=== PATIENT | female | born 1955 | race Caucasian/White ===

== ENCOUNTER → 2017-08-29 15:05 | Outpatient (CLI) | payer BC, SELFPAY ==
--- NOTE | 2017-08-29 15:05 | DT_ITS ---
This patient was seen during an EMR downtime August 28, 2017 - September 04, 2017. This patient may have a combination of paper and electronic documentation or all paper documentation. All documentation is viewable within the e-chart portion of [facility] for each patient visit.
[2017-09-04 16:53] LABS: ALB/GLOB Ratio 1.1 RATIO (0.9-2.4); BUN 16 mg/dL (7-18); Creatinine, Serum 0.94 mg/dL (0.55-1.02); EST Glomerular Filtration Rate 64 mL/min (>60); Est Glom Filt Rate - Afr Amer 78 mL/min (>60); Globulin 3.8 g/dL (2.2-4.2); Glucose 85 mg/dL (74-106); Protein, Total 7.8 g/dL (6.4-8.2)
[2017-09-04 16:54] LABS: AST(SGOT) 22 U/L (15-37); Alanine Aminotransfer ALT/SGPT 22 U/L (13-56); Alkaline Phosphatase 91 U/L (45-117); Anion Gap 8 (5-15); Calcium,Total 9.4 mg/dL (8.5-10.1); Chloride 104 mmol/L (98-107); Potassium 4.3 mmol/L (3.5-5.1); Sodium Level 141 mmol/L (136-145)
[2017-09-04 17:45] LABS: Hematocrit 41.2 % (37-47); Hemoglobin 13.5 g/dl (12.0-15.0); Mean Corp Hgb Conc 32.8 g/gl (32-36); Mean Corpuscular Hgb 28.5 pg (27.0-32.0); Mean Corpuscular Volume 87.1 fL (81-99); Mean Platelet Vol. 8.9 fl (6.2-12.0); POSITIVE COUNT NO; POSITIVE DIFFERENTIAL NO; POSITIVE MORPHOLOGY NO; Platelet Count 165 K/mm3 (150-450); RBC Distribution Width CV 13.9 % (11.6-14.6); RBC Distribution Width SD 44.3 fl (35.1-43.9); Red Blood Count 4.73 M/mm3 (4.2-5.4); White Blood Count 7.5 K/mm3 (4.4-11.0)
[2017-09-04 17:46] LABS: Absolute Lymphocyte Count 1.91 X10^3/ul (0.83-4.51); Absolute Neutrophil Count 5.1 X10^3/uL (2.0-7.7); Basophil# 0.03 X10^3/uL; Basophil% 0.4 % (0-1); Eosinophil# 0.09 X10^3/uL; Eosinophils% 1.2 % (0-5); Lymphocyte # 1.91 X10^3/ul (4.0); Lymphocyte % 25.4 % (19-41); Monocyte# 0.42 X10^3/uL; Monocyte% 5.6 % (0-10); Neutrophil # 5.05 X10^3/uL (2.7-7.7); Neutrophil % 67.3 % (47-70)
== END ==
PROVIDERS: Family Provider Family Medicine; PCP Family Medicine; Visit Provider Internal Medicine Rheumatology
DX: L40.59 Other psoriatic arthropathy (principal); L40.9 Psoriasis, unspecified; M21.40 Flat foot [pes planus] (acquired), unspecified foot; K76.0 Fatty (change of) liver, not elsewhere classified; L71.9 Rosacea, unspecified; Z85.3 Personal history of malignant neoplasm of breast
CPT/HCPCS: 36415; 80053; 85025

== ENCOUNTER → 2018-02-22 16:15 | Outpatient (CLI) | payer BC, SELFPAY ==
[2017-04-19 16:53] VITALS: BMI 37.9
[2018-02-22 17:34] LABS: Absolute Neutrophil Count 2.8 X10^3/uL (2.0-7.7); Basophil# 0.03 X10^3/uL; Basophil% 0.6 % (0-1); Eosinophil# 0.16 X10^3/uL; Eosinophils% 3.1 % (0-5); Hemoglobin 13.3 g/dl (12.0-15.0); Lymphocyte % 33.2 % (19-41); Mean Corp Hgb Conc 32.4 g/gl (32-36); Mean Corpuscular Hgb 28.4 pg (27.0-32.0); Mean Corpuscular Volume 87.4 fL (81-99); Mean Platelet Vol. 9.3 fl (6.2-12.0); Monocyte# 0.38 X10^3/uL; Monocyte% 7.4 % (0-10); Neutrophil # 2.84 X10^3/uL (2.7-7.7); Neutrophil % 55.5 % (47-70); Platelet Count 185 K/mm3 (150-450); RBC Distribution Width CV 13.7 % (11.6-14.6); RBC Distribution Width SD 42.9 fl (35.1-43.9); Red Blood Count 4.69 M/mm3 (4.2-5.4); White Blood Count 5.1 K/mm3 (4.4-11.0)
[2018-02-22 17:39] LABS: POSITIVE COUNT NO; POSITIVE DIFFERENTIAL NO; POSITIVE MORPHOLOGY NO
[2018-02-22 17:50] LABS: ALB/GLOB Ratio 1.1 RATIO (0.9-2.4); AST(SGOT) 29 U/L (15-37); Alanine Aminotransfer ALT/SGPT 31 U/L (13-56); Albumin, Serum 4.1 g/dL (3.2-5.0); Alkaline Phosphatase 85 U/L (45-117); Anion Gap 5 (5-15); BUN 13 mg/dL (7-18); BUN/Creat Ratio 15.2 RATIO (10-20); Calcium,Total 9.3 mg/dL (8.5-10.1); Chloride 103 mmol/L (98-107); Creatinine, Serum 0.85 mg/dL (0.55-1.02); EST Glomerular Filtration Rate 71 mL/min (>60); Est Glom Filt Rate - Afr Amer 86 mL/min (>60); Globulin 3.6 g/dL (2.2-4.2); Glucose 82 mg/dL (74-106); Protein, Total 7.7 g/dL (6.4-8.2); Sodium Level 138 mmol/L (136-145)
--- OUTSIDE RECORDS SUMMARY | 2018-04-19 22:36 | XMS RPT_ITS ---
:1955 Author Organization [facility] Address [address] [place] [address] Phone Care Team Providers Name Role Phone Jono MURRIETA, Jhonatan Smith Unavailable Reason for Visit Reason For Visit Description Start Date Follow-up by complaint Preliminary reason for visit data, not yet signed by the author as of right knee pain Preliminary reason for visit data, not yet signed by the author as of Chief Complaint Chief Complaint Description Start Date right knee pain Preliminary chief complaint data, not yet signed by the author as of Instructions Instruction Description Start Date Patient advised to follow-up with Primary Care Physician for BMI management. Plan of Care Type Date Detail Appointment 03:15 PM Jhonatan De La Cruz MD, [address] [place] [address], [place], [address], Medications Medication Instructions Start Stop Generic Name NDC Provider Date Date IBUPROFEN 200 two tablets IBUPROFEN 82174416107 Jhonatan M MG TABS every six hours 5 Jono MURRIETA as needed for pain. 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 2nd plantar (SNOMED CT) 04/02 04/02 Antonia MURRIETA MP. plate of right foot Injury of 443789814 Active Dick Todd Injury of foot chronic. 2nd plantar (SNOMED CT) 04/02 04/02 Antonia MURRIETA MP. plate of left foot Long toe 192363220 Active Dick Todd Form of toes - long 2nd (SNOMED CT) 04/02 04/02 Antonia MURRIETA finding metatarsal, bilaterally Tenosynovit 972268295 Active Dick Todd Tenosynovitis 2nd MP joint is of toe (SNOMED CT) 04/02 04/02 Antonia MURRIETA of foot bilaterally Acquired 4186211 Active Dick Todd Acquired hallux hallux (SNOMED CT) 04/02 04/02 Antonia MURRIETA rigidus rigidus of right foot Gastrocnemi 946162817 Active Dick Todd Angulation us equinus (SNOMED CT) 04/02 04/02 Antonia MURRIETA deformity of of left lower limb lower extremity Gastrocnemi 067343705 Active Dick Todd Angulation us equinus (SNOMED CT) 04/02 04/02 Antonia MURRIETA deformity of of right lower limb lower extremity Hallux 29472436 Active Dick Todd Acquired hallux valgus (SNOMED CT) 04/02 04/02 Antonia MURRIETA valgus (acquired), right foot Hallux 118148403 Active Dick Todd Hallux valgus valgus (SNOMED CT) 04/02 04/02 Antonia MURRIETA AND bunion (acquired), left foot Osteoarthri 719277999 Active Rekha Hung Patellofemoral tis of (SNOMED CT) 09/24 09/24 [place] osteoarthritis right 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 Vital Signs Date Name Value Unit Description BMI (Body Mass 37.26 kg/m2 Body Mass Index Index) [Ratio] Preliminary vital sign data, not yet signed by the author as of BP Diastolic 73 mm[Hg] blood pressure, diastolic Preliminary vital sign data, not yet signed by the author as of BP Systolic 110 mm[Hg] blood pressure, systolic Preliminary vital sign data, not yet signed by the author as of Heart Rate 67 /min pulse rate E&M Preliminary vital sign data, not yet signed by the author as of Height 66 [in_us] height E&M Preliminary vital sign data, not yet signed by the author as of Height 168 cm height in centimeters E&M Preliminary vital sign data, not yet signed by the author as of Weight Measured 230 [lb_av] weight E&M Preliminary vital sign data, not yet signed by the author as of Weight Measured 105 kg weight in kilograms E&M Preliminary vital sign data, not yet signed by the author as of Results Date Name Value Unit Range Flag Description Office Visit: Follow-up by complaint, Rm: 3 MEDS REVIEW Done Documentation of current medications (procedure) Preliminary observation data, not yet signed by the author as of Preliminary observation data, not yet signed by the author as of Clinical Summary: [facility] account number Procedures Code Procedure Name Date Entry Date CPT-37539 XR KNEE [id number] G8730 Pain assessment documented as positive - follow-up documented G8427 Current medications documented 1036F Tobacco screening was negative - non user G8417 BMI documented as above normal parameters - follow-up documented G8783 Blood pressure within normal parameters - no follow-up required [facility]-[id number] Patient Encounter Medications Administered No information available. Immunizations No information available. Advance Directives There may be information available, but it has not been provided by the sender. Assessments There may be information available, but it has not been provided by the sender. Review of Systems There may be information available, but it has not been provided by the sender. Family History There may be information available, but it has not been provided by the sender. History of Past Illness There may be information available, but it has not been provided by the sender. History of Present Illness There may be information available, but it has not been provided by the sender.
--- OUTSIDE RECORDS SUMMARY | 2018-04-19 22:36 | XMS RPT_ITS ---
:1955 Author Organization [employer] Address [address] [place] [address] Phone Care Team Providers Name Role Phone Jhonatan De La Cruz MD Unavailable Reason for Visit Reason For Visit Description Start Date Postop - subsequent visit Preliminary reason for visit data, not yet signed by the author as of right knee post Right Total Knee Arthroplasty on 11/21/2016 Preliminary reason for visit data, not yet signed by the author as of Chief Complaint Chief Complaint Description Start Date right knee post Right Total Knee Arthroplasty on 11/21/2016 Preliminary chief complaint data, not yet signed by the author as of Instructions Instruction Description Start Date Patient advised to follow-up with Primary Care Physician for BMI management. Plan of Care Type Date Detail Appointment 09:45 AM Jhonatan De La Cruz MD, [address], [place], [address], Appointment 09:45 AM Jhonatan De La Cruz MD, [address], [place], [address], Medications Medication Instructions Start Stop Generic Name NDC Provider Date Date CIPRO 500 MG 1 tablet twice / CIPROFLOXACIN 57374922738 Jhonatan Smith TABS daily 22 HCL Jono MURRIETA IBUPROFEN 200 two tablets / IBUPROFEN 13541158717 Jhonatan Smith MG TABS every six hours 25 Jono MURRIETA as needed for pain. ATENOLOL 25 MG one tablet once / ATENOLOL 24104500447 Jhonatan Smith TABS daily 25 Jono MURRIETA ASPIRIN EC 325 Once daily / ASPIRIN 52832677641 Jhonatan Smith MG TBEC 26 Jono MURRIETA VITAMIN C 1000 once daily / ASCORBIC ACID 28441759345 Jhonatan Smith MG TABS 08 Jono MURRIETA OTEZLA 30 MG once daily / APREMILAST 08653627885 Jhonatan Smith ROSITA 08 Jono MURRIETA Conditions or Problems Problem Problem Onset Status Entry Provider Comment Standard Annotate Name Code Date Date Description Unilateral M17.12 Active Jhonatan Sarah Unilateral primary (ICD-10-CM) 08/18 08/18 Jono primary osteoarthri osteoarthritis, tis left left knee knee Status post 73309720838 Active Rekha A History of total right 05 (SNOMED [place] total knee knee CT) 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 2nd plantar (SNOMED CT) 04/02 04/02 Antonia MURRIETA MP. plate of right foot Injury of 379379008 Active Dick Todd Injury of foot chronic. 2nd plantar (SNOMED CT) 04/02 04/02 Antonia MURRIETA MP. plate of left foot Long toe 781400477 Active Dick Todd Form of toes - long 2nd (SNOMED CT) 04/02 04/02 Anotnia MURRIETA finding metatarsal, bilaterally Tenosynovit 919686912 Active Dick Todd Tenosynovitis 2nd MP joint is of toe (SNOMED CT) 04/02 04/02 Antonia MURRIETA of foot bilaterally Acquired 4885890 Active Dick Todd Acquired hallux hallux (SNOMED CT) 04/02 04/02 Antonia MURRIETA rigidus rigidus of right foot Gastrocnemi 029801840 Active Dick Todd Angulation us equinus (SNOMED CT) 04/02 04/02 Antonia MURRIETA deformity of of left lower limb lower extremity Gastrocnemi 842211050 Active Dikc Todd Angulation us equinus (SNOMED CT) 04/02 04/02 Antonia MURRIETA deformity of of right lower limb lower extremity Hallux 12781749 Active Dick Todd Acquired hallux valgus (SNOMED CT) 04/02 04/02 Antonia MURRIETA valgus (acquired), right foot Hallux 413246232 Active Dick Todd Hallux valgus valgus (SNOMED CT) 04/02 04/02 Antonia MURRIETA AND bunion (acquired), left foot Osteoarthri 214025248 Active Rekha A Patellofemoral tis of (SNOMED CT) 09/24 09/24 [place] osteoarthritis right 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 Acute 152956251 Active Jhonatan Smith Acute meniscal medial (SNOMED [...] by the author as of BP Diastolic 74 mm[Hg] blood pressure, diastolic Preliminary vital sign data, not yet signed by the author as of BP Systolic 116 mm[Hg] blood pressure, systolic Preliminary vital sign data, not yet signed by the author as of Heart Rate 73 /min pulse rate E&M Preliminary vital sign [...] Value Unit Range Flag Description Office Visit: Postop - subsequent visit, Rm: 1 MEDS REVIEW Done Documentation of current medications (procedure) Preliminary observation data, not yet signed by the author as of Preliminary observation data, not yet signed by the author as of XRAY HX of the right knee xray history on 12/14/2017 at [facility] Preliminary observation data, not yet signed by the author as of Clinical Summary: [facility] account number Procedures Code Procedure Name Date Entry Date G8730 Pain assessment documented as positive - follow-up documented G8427 Current medications documented 1036F Tobacco screening was negative - non user G8417 BMI documented as above normal parameters - follow-up documented G8783 Blood pressure within normal parameters - no follow-up required [facility]-[id number] Patient Encounter Medications Administered No information available. [...]
--- OUTSIDE RECORDS SUMMARY | 2018-04-19 22:36 | XMS RPT_ITS ---
:1955 Author Organization [facility] Care Team Providers Name Role Phone LEONA SMITH MICHEAL A Referring Unavailable TIEN JOSÉ (DRIVER UTILITY WORKER) Referring Unavailable TIEN JOSÉ (DRIVER UTILITY WORKER) Attending Unavailable TIEN JOSÉ (DRIVER UTILITY WORKER) Referring Unavailable CEBUL III, MICHEAL A Attending Unavailable CEBUL III, MICHEAL A Referring Unavailable CEBUL III, MICHEAL A Attending Unavailable CEBUL III, MICHEAL A Referring Unavailable CEBUL III, MICHEAL A Referring Unavailable TIEN JOSÉ (DRIVER UTILITY WORKER) Attending Unavailable TIEN JOSÉ (DRIVER UTILITY WORKER) Referring Unavailable TIEN JOSÉ (DRIVER UTILITY WORKER) Referring Unavailable Alex Rodriguze Attending Unavailable Cebul III, Micheal Referring Unavailable Cebul III, Micheal Primary Care Unavailable Iman Bose Attending Unavailable Iman Bose Referring Unavailable Cebul III, Micheal Primary Care Unavailable Iman Bose Attending Unavailable Iman Bose Referring Unavailable Cebul III, Micheal Primary Care Unavailable PROBLEMS PROBLEMS DATE TYPE CONDITION / CODE ATTENDING STATUS SOURCE 01/12/2018 Active Fever, NA Active [facility] unspecified / [facility] [place] R50.9(ICD-10) Repository 09/20/2017 Unknown L40.59 - Other [place]ieran, Iman Active [facility] arthropathy [facility] L40.59(ICD-10) Repository 08/29/2017 Active Unknown / JOSÉ, Active [facility] UNK(Unknown) TIEN (DRIVER UTILITY WORKER) [facility] [place] Repository 09/07/2016 Active Intraductal NA Active [facility] carcinoma in situ [facility] [place] of right breast / Repository D05.11(ICD-10) 08/28/2017 Active Encounter for NA Active [facility] screening [facility] mammogram for Repository malignant neoplasm of breast / Z12.31(ICD-10) 04/19/2017 Unknown R30.0 - Dysuria / Alex Rodriguez Active [facility] R30.0(ICD-10) [facility] Repository 04/19/2017 Unknown N39.0 - Urinary Alex Rodriguez Active [facility] tract infection, Community site not Hospital specified / Repository N39.0(ICD-10) PROCEDURES PROCEDURES No Procedure Records FoundRESULTS RESULTS URINALYSIS WITH Collected: 02/28/2018 Status: F Source: [facility] 11:48 AM [facility] REPOSITORY TYPE CODE TESTS RESULT OUT OF REFERENCE UNITS RANGE LAB UCOL Yellow Color Yellow LAB [facility] Clear Clarity Clear LAB UGLUC Negative mg/dL Glucose, Urine Negative LAB UBIL Negative Bilirubin, Urine Negative LAB UKET Negative Ketones, Urine Negative LAB USPG 1.005-1.030 Specific [place], Ur 1.018 LAB UHGB Negative Hemoglobin/Blood, Negative Ur LAB UPH 4.5-8.0 pH 6.0 LAB UPROT Negative mg/dL Protein, Urine Negative LAB UUROB Normal Urobilinogen Normal LAB UNITR Negative Nitrites Negative LAB ULKEST Negative Leukest Negative LAB UCOM Comments SEE COMMENT Result Comment: N/A LAB UMCOM Urine SEE Abrahan Comment COMMENT Result Comment: Interpret results with caution. Urine preservative tube not filled to the required volume. The BD Vacutainer Urinalysis preservative Plus tube must be filled with at least 7 mL and not more than 9 mL of urine in order to maintain the proper additive to urine ratio. LAB UWBC 0-5 /HPF WBC 0-5 LAB URBC 0-3 /HPF RBC 0-3 LAB UEPI /HPF Epithelial SEE Cells COMMENT Result Comment: Few Squamous Epithelial Cells Performed By: #### UAWMIC #### [facility] [address] [place], [place] [address] Observed: 02/28/2018 Status: F Source: [facility]ULT[facility] 11:48 AM [facility] REPOSITORY Sp. Request/Comment: - Specimen received in preservative Culture Result - 10,000 - <50,000 CFU/ml Normal urogenital emely Performed By: #### URCUL #### [facility] [address] [place], [place] [address] PROGRESS Observed: 02/28/2018 Status: COMPLETED Source: [facility] 11:05 AM [facility] REPOSITORY HNO ID: [id number] Author: Tien José Service: (none) Author Type: Nurse Practitioner Type: Progress Notes Filed: 02/28/2018 11:29 AM Note Text: Chief Complaint Patient presents with: Established Patient HPI: Pily Emery is a 62 year old female who presents here today for follow up DCIS. H/o abnormality on screening mammogram 05/13/2013. ?? Underwent biopsy 07/11/2013. ?? Pathology: DCIS (5 mm); cribriform, solid and comedo pattern; high nuclear grade with necrosis (expansive comedo necrosis). ER 95% with HER2 2-3+. Then underwent lumpectomy 07/30/2013: Focal lobular carcinoma in situ. Multifocal atypical lobular hyperplasia with atypia. Posterior margin clear with redo. ?? Has h/o psoriatic arthritis. Affects hands and shoulders mainly. Chronic fatigue. ?? Radiation:09/05/13 to 10/18/13. ?? Current therapy:tamoxifen. Started end of September 2013. Has taken on and off since starting d/t joint pain. ?? Pt. has been off of tamoxifen since 2016. I can't take the pain that it causes. ? The last time that I had a low grade fever I had a UTI and didn't know it. ? Appetite:good Energy level:I'm tired. Low grade fever today. Resp:denies cough or sob Cardiac:denies chest pain/occ. palpitations-stable on and off-stress makes it worse. GI:denies abd, n/v, moving bowels regularly :denies dysuria/hematuria -had UTI end of Dec. Extrem:occ. R knee pain/low back pain Endo:denies hot flashes Neuro:denies symtoms of neuropathy Skin:denies rashes/lesions Heme:denies bleeding The ROS is otherwise negative. Past medical history, appointments, medications, allergies reviewed. No changes. EXAM: BP 123/60 Pulse 66 Temp 37.3 ?C (99.2 ?F) (Oral) Wt 110.2 kg (243 lb) BMI 39.82 kg/m? APPEARANCE Well appearing, alert, in no acute distress, well-hydrated, well nourished. HEART RRR with normal S1 and S2, no murmurs LUNG clear to auscultation BREAST FEMALE no mass/nodule b/l, scar to R outer/radiation changes LYMPH NODES No cervical lymphadenopathy, No supraclavicular lymphadenopathy and No axillary lymphadenopathy. ABDOMEN bowel sounds normoactive, soft, non-tender, non-distended, without organomegaly or palpable masses EXTREMITIES No edema NEURO Awake, alert and oriented x 3, Normal gait and No involuntary motions. SKIN Skin color, texture, turgor normal, no suspicious rashes or lesions ASSESSMENT/PLAN: 1. Ductal carcinoma in situ (DCIS) of right breast - ICD9: 233.0, ICD10: D05.11 (primary diagnosis) High grade DCIS of the right breast s/p lumpectomy, s/p radiation treatment to the right breast finished on 10/18/13. 2. Encounter for screening mammogram for high-risk patient - ICD9: V76.11, ICD10: Z12.31 3. Low grade fever - ICD9: 780.60, ICD10: R50.9 - ?No concerning findings on exam. - ?Tamoxifen-Pt. stopped prematurely-initially took inconsistently. - UA today. - ?Mammogram due August 2018. - ?Follow up in 6 months-after mammogram. - ?Pt. aware to call office with any questions/concerns. The patient indicates understanding of these issues and agrees with the plan. Tien José APRN.DRIVER UTILITY WORKER CNOVSP Observed: 02/28/2018 Status: COMPLETED Source: [facility] 11:00 AM [facility] REPOSITORY Visit (SP) Office ([place]) PILY EMERY ([id number]) 1955 F Date Time Provider Department 02/28/18 11:00 AM TIEN JOSÉ During your visit today, we recorded the following information about you: Temperature Pulse Blood pressure Weight 99.2 degrees 66/minute 123/60 110.2 kg Tien José, PLASTIC SURGERY TECHNICIAN.DRIVER UTILITY WORKER 02/28/2018 11:29 AM Signed Chief Complaint Patient presents with: Established Patient HPI: Pily Emery is a 62 year old female who presents here today for follow up DCIS. H/o abnormality on screening mammogram 05/13/2013. ?? Underwent biopsy 07/11/2013. ?? Pathology: DCIS (5 mm); cribriform, solid and comedo pattern; high nuclear grade with necrosis (expansive comedo necrosis). ER 95% with HER2 2-3+. Then underwent lumpectomy 07/30/2013: Focal lobular carcinoma in situ. Multifocal atypical lobular hyperplasia with atypia. Posterior margin clear with redo. ?? Has h/o psoriatic arthritis. Affects hands and shoulders mainly. Chronic fatigue. ?? Radiation:09/05/13 to 10/18/13. ?? Current therapy:tamoxifen. Started end of September 2013. Has taken on and off since starting d/t joint pain. ?? Pt. has been off of tamoxifen since 2016. I can't take the pain that it causes. ? The last time that I had a low grade fever I had a UTI and didn't know it. ? Appetite:good Energy level:I'm tired. Low grade fever today. Resp:denies cough or sob Cardiac:denies chest pain/occ. palpitations-stable on and off-stress makes it worse. GI:denies abd, n/v, moving bowels regularly :denies dysuria/hematuria -had UTI end of Extrem:occ. R knee pain/low back pain Endo:denies hot flashes Neuro:denies symtoms of neuropathy Skin:denies rashes/lesions Heme:denies bleeding The ROS is otherwise negative. Past medical history, appointments, medications, allergies reviewed. No changes. EXAM: BP 123/60 Pulse 66 Temp 37.3 ?C (99.2 ?F) (Oral) Wt 110.2 kg (243 lb) BMI 39.82 kg/m? APPEARANCE Well appearing, alert, in no acute distress, well- hydrated, well nourished. HEART RRR with normal S1 and S2, no murmurs LUNG clear to auscultation BREAST FEMALE no mass/nodule b/l, scar to R outer/radiation changes LYMPH NODES No cervical lymphadenopathy, No supraclavicular lymphadenopathy and No axillary lymphadenopathy. ABDOMEN bowel sounds normoactive, soft, non-tender, non-distended, without organomegaly or palpable masses EXTREMITIES No edema NEURO Awake, alert and oriented x 3, Normal gait and No involuntary motions. SKIN Skin color, texture, turgor normal, no suspicious rashes or lesions ASSESSMENT/PLAN: 1. Ductal carcinoma in situ (DCIS) of right breast - ICD9: 233.0, ICD10: D05.11 (primary diagnosis) High grade DCIS of the right breast s/p lumpectomy, s/p radiation treatment to the right breast finished on 10/18/13. 2. Encounter for screening mammogram for high-risk patient - ICD9: V76.11, ICD10: Z12.31 3. Low grade fever - ICD9: 780.60, ICD10: R50.9 - ?No concerning findings on exam. - ?Tamoxifen-Pt. stopped prematurely-initially took inconsistently. - UA today. - ?Mammogram due August 2018. - ?Follow up in 6 months-after mammogram. - ?Pt. aware to call office with any questions/concerns. The patient indicates understanding of these issues and agrees with the plan. Tien José APRN.DRIVER UTILITY WORKER Referring Provider: TIEN JOSÉ [[id number]] Allergies As of Date: 02/28/2018 Noted Allergy Reaction PENICILLINS 02/24/2005 Comments: YEAST INFECTION Date Reviewed: 02/28/2018 Reviewed by: Tien José - Fully Assessed Reason for Visit: Established Patient [175] Primary Visit Diagnosis:Ductal carcinoma in situ (DCIS) of right breast [D05.11] Other Visit Diagnoses:Encounter for screening mammogram for high-risk patient [Z12.31] Low grade fever [R50.9] Order(s):OMAR SCREENING W ANNE [[id number]] Order #: [id number] FUTURE URINALYSIS WITH MICROSCOPIC [SQUAWMIC] Order #: [id number] URINE CULTURE [SQURCUL] Order #: [id number] FUTURE BREAST PROSTHESIS, MASTECTOMY BRA [[id number]] Order #: [id number]: 4 BREAST PROSTHESIS, MASTECTOMY FORM [[id number]] Order #: [id number] Follow-up and Disposition History Recorded Prescriptions as of 02/28/2018 Sig: MECLIZINE 12.5 MG TABLET TAKE ONE TABLET BY MOUTH THRE* NAPROXEN 500 MG TABLET Take 1 tablet by mouth twice * ATENOLOL 25 MG TABLET Take 1 tablet by mouth once d* PRAMIPEXOLE 0.25 MG TABLET 1-2 tablets three times/day a* APREMILAST 30 MG TABLET Take 30 mg by mouth once roberta* ACIDOPHILUS 25 MILLION CELL-P* Take 1 tablet by mouth once d* HYDROCHLOROTHIAZIDE 12.5 MG C* Take 1 capsule by mouth once * Patient not taking: Reported on 01/12/2018 Problem List As Of Date 02/28/2018 Noted Resolved DYSMETABOLIC SYNDROME X [E88.81] INVALID FOR* ATROPHIC VAGINITIS [N95.2] INVALID FOR* Costochondritis [M94.0] INVALID FOR* Psoriasis [L40.9] Acute gastritis without mention of hemorrhage [*INVALID FOR*11/15/2016 Psoriatic arthritis [L40.50] INVALID FOR* Fatty liver disease, nonalcoholic [K76.0] INVALID FOR* Hyperlipidemia with target low density lipoprot*INVALID FOR* Obesity [E66.9] INVALID FOR* 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.*INVALID FOR* Restless legs syndrome [G25.81] INVALID FOR* Insomnia secondary to situational depression [F*INVALID FOR* Post-traumatic osteoarthritis of right knee [M1*INVALID FOR* Degenerative tear of medial meniscus of right k*INVALID FOR* Ductal carcinoma in situ (DCIS) of right breast*INVALID FOR* Situational anxiety [F41.8] INVALID FOR* Encounter Status:Closed by TIEN JOSÉ CNP on 02/28/18 CBC W/DIFF, AUTOMATED Collected: 02/22/2018 Status: F Source: [facility] 4:20 PM [facility] REPOSITORY TYPE CODE TESTS RESULT OUT OF RANGE REFERENCE UNITS LAB L100.1000 4.4-11.0 K/mm3 Normal WBC 5.1 LAB L100.1200 4.2-5.4 M/mm3 Normal RBC 4.69 LAB L100.1300 12.0-15.0 g/dl Normal HGB 13.3 LAB L100.1400 37-47 % Normal HCT 41.0 LAB L100.1500 81-99 fL Normal MCV 87.4 LAB L100.1600 27.0-32.0 pg Normal MCH 28.4 LAB L100.1700 32-36 g/gl Normal MCHC 32.4 LAB L100.1810 11.6-14.6 % Normal RDW CV 13.7 LAB L100.1820 35.1-43.9 fl Normal RDW SD 42.9 LAB L100.1900 150-450 K/mm3 Normal PLT 185 LAB L100.2000 6.2-12.0 fl Normal MPV 9.3 LAB L100.2100 47-70 % Normal NEUT% 55.5 LAB L100.2200 19-41 % Normal LY% 33.2 LAB L100.2300 0-10 % Normal MONO% 7.4 LAB L100.2400 0-5 % Normal EO% 3.1 LAB L100.2500 0-1 % Normal BASO% 0.6 LAB L100.2550 0.0-0.9 % Normal IM GRAN % 0.200 Result Comment: IG% - Immature Granulocytes (promyelocytes, myelocytes and metamyelocytes) > 1% indicates that a LEFT SHIFT is Present. LAB L100.2620 2.0-7.7 X10 3/uL Normal Absolute Neut 2.8 LAB L100.2720 0.83-4.51 X10 3/ul Normal Absolute Lymph 1.70 Performed By: #### L100.0100 #### [facility] [address] [place], [address] COMPREHENSIVE METABOLIC Collected: 02/22/2018 Status: F Source: [facility] 4:20 PM [facility] REPOSITORY TYPE CODE TESTS RESULT OUT OF RANGE REFERENCE UNITS LAB L501.0100 74-106 mg/dL Normal GLU 82 Result Comment: Please note revised GLUCOSE reference range effective 2017. LAB L501.1000 7-18 mg/dL Normal BUN 13 LAB L501.1100 0.55-1.02 mg/dL Normal CREAT,SERUM 0.85 Result Comment: The validity of the calculated GFR AND GFRAA in patients over 70 years has not been determined. Clinical correlation is essential. LAB L501.1110 >60 mL/min Normal EST GFR 71 Result Comment: Non- GFR Calc LAB L501.1115 >60 mL/min Normal EST GFR - AA 86 Result Comment: GFR Calc LAB L501.1300 10-20 RATIO Normal BUN/CRE 15.2 LAB L501.1500 6.4-8.2 g/dL T Normal PROT 7.7 LAB L501.1800 3.2-5.0 g/dL Normal ALB 4.1 LAB L501.1950 2.2-4.2 g/dL Normal GLOB 3.6 LAB L501.2000 0.9-2.4 RATIO Normal A/G 1.1 LAB L501.2200 8.5-10.1 mg/dL CA Normal 9.3 LAB L501.4100 15-37 U/L Normal AST 29 LAB L501.4305 45-117 U/L Normal ALK P 85 LAB L501.4405 13-56 U/L Normal ALT 31 LAB L501.4600 0.20-1.00 mg/dL T Normal BILI 0.50 LAB L501.5300 136-145 mmol/L NA Normal 138 LAB L501.5600 3.5-5.1 mmol/L K Normal 4.0 LAB L501.5900 98-107 mmol/L CL Normal 103 LAB L501.6100 21.0-32.0 mmol/L Normal CO2 30.0 LAB L501.6200 5-15 Normal GAP 5 Performed By: #### L500.4050 #### [facility] [address] [place], [address] Observed: 01/22/2018 Status: F Source: [facility] 4:09 PM [facility] REPOSITORY Sp. Request/Comment: - Specimen received in preservative Culture Result - No growth (<1,000 CFU/ml) Performed By: #### URCUL #### [facility] [address] [place] [id number] PROGRESS Observed: 01/13/2018 Status: COMPLETED Source: [facility] 2:11 PM [facility] REPOSITORY HNO ID: [id number] Author: Micheal Ulrich III Service: (none) Author Type: Physician Type: Progress Notes Filed: 01/13/2018 2:11 PM Note Text: Jumana, The urinalysis is consistent with infection. There is mild elevation of the CRP and sedimentation rate which also would be consistent with infection. Recommend treatment with Cipro 500 mg twice per day for 7 days. Prescription will be sent to the local pharmacy. Recheck urine at the end of the course of treatment. Report if this resolves the fever. Micheal Ulrich III MD PROGRESS Observed: 01/13/2018 Status: COMPLETED Source: [facility] 2:11 PM [facility] REPOSITORY HNO ID: [id number] Author: Micheal Ulrich III Service: (none) Author Type: Physician Type: Progress Notes Filed: 01/13/2018 2:11 PM Note Text: Jumana, The urinalysis is consistent with infection. There is mild elevation of the CRP and sedimentation rate which also would be consistent with infection. Recommend treatment with Cipro 500 mg twice per day for 7 days. Prescription will be sent to the local pharmacy. Recheck urine at the end of the course of treatment. Report if this resolves the fever. Micheal Ulrich III MD PROGRESS Observed: 01/12/2018 Status: COMPLETED Source: [facility] 7:00 PM [facility] REPOSITORY HNO ID: [id number] Author: Micheal Ulrich III Service: (none) Author Type: Physician Type: Progress Notes Filed: 01/12/2018 7:00 PM Note Text: Jumana, Good news?chest x-ray is normal. I am still awaiting the lab results. Micheal Ulrich III, MD, [facility] Collected: 01/12/2018 Status: F Source: [facility] 3:55 PM [facility] REPOSITORY TYPE CODE TESTS RESULT OUT OF RANGE REFERENCE UNITS LAB UCOL Yellow Color Yellow LAB [facility] Clear Clarity Abnormal Cloudy Alert LAB UGLUC Negative mg/dL Glucose, Urine Negative LAB UBIL Negative Bilirubin, Urine Negative LAB UKET Negative Ketones, Urine Negative LAB USPG 1.005-1.030 Specific [place], Ur 1.005 LAB UHGB Negative Hemoglobin/Blood, Negative Ur LAB UPH 4.5-8.0 pH 6.0 LAB UPROT Negative mg/dL Protein, Urine Negative LAB UUROB Normal Urobilinogen Normal LAB UNITR Negative Nitrites Negative LAB ULKEST Negative Leukest Abnormal 1+ Alert LAB UCOM Comments SEE COMMENT Result Comment: N/A LAB UMCOM Urine SEE Abrahan Comment COMMENT Result Comment: N/A LAB UWBC 0-5 /HPF Abnormal WBC Alert 6-10 LAB URBC 0-3 /HPF RBC 0-3 LAB UEPI /HPF Epithelial Cells SEE COMMENT Result Comment: Few Squamous Epithelial Cells Few Non-Squamous Epithelial Cells Performed By: #### UAWMIC #### [facility] [address], [place] [address] PROGRESS Observed: 01/12/2018 Status: COMPLETED Source: [facility] 2:44 PM [facility] REPOSITORY HNO ID: [id number] Author: Harmony (Rt) Gagandeep Bernal Service: (none) Author Type: Application Internship Type: Progress Notes Filed: 01/12/2018 2:44 PM Note Text: Radiology Service Progress Note PATIENT NAME: Pily Emery DATE OF SERVICE: January 12, 2018 TIME: 2:44 PM PATIENT IDENTITY VERIFICATION COMPLETED USING TWO (2) METHODS: Patient confirmed name verbally and Date of . PATIENT GENDER DATA: Female. status: : No status: NO. PATIENT RELEVANT IMPLANT DATA REVIEWED: Not Applicable RADIOLOGY DEPARTMENT: General X-ray: Exam(s) Completed: Chest X-Ray PERIPHERAL IV DATA: Not applicable SIGNED BY: RT Tay January 12, 2018 2:44 PM XR CHEST 2V FRONTAL/LAT Observed: 01/12/2018 Status: F Source: [facility] 2:40 PM [facility] REPOSITORY * * *Final Report* * * DATE OF EXAM: Jan 12 2018 2:40PM WOX [id number] - XR CHEST 2V FRONTAL/LAT / PROCEDURE REASON: Fever, unspecified fever cause * * * * Physician Interpretation * * * * XR CHEST 2V FRONTAL/LAT INDICATION: Fever, unspecified fever cause 62 years/Female RESULT: The heart size is normal. The lung godoy are clear of infiltrate. No mediastinal or hilar adenopathy. The costophrenic angles are clear. The bony structures are intact IMPRESSION: no active cardiopulmonary disease [place]: BARBARA Transcribe Date/Time: Jan 12 2018 5:33P Dictated by : VIRGINIA GUADALUPE MD This examination was interpreted and the report reviewed and electronically signed by: VIRGINIA GUADALUPE MD on Jan 12 2018 5:33PM EST [id number] CBC AND DIFFERENTIAL Collected: 01/12/2018 Status: F Source: [facility] 2:14 PM [facility] REPOSITORY TYPE CODE TESTS RESULT OUT OF REFERENCE UNITS RANGE LAB WBC 3.70-11.00 k/uL WBC 5.81 LAB RBC 3.90-5.20 m/uL RBC 4.81 LAB HGB 11.5-15.5 g/dL Hemoglobin 13.7 LAB HCT 36.0-46.0 % Hematocrit 42.4 LAB MCV 80.0-100.0 fL MCV 88.1 LAB MCH 26.0-34.0 pG MCH 28.5 LAB MCHC 30.5-36.0 g/dL MCHC 32.3 LAB RDWCV 11.5-15.0 % RDW-CV 13.4 LAB PLTCT 150-400 k/uL Platelet Count 194 LAB MPV 9.0-12.7 fL MPV 9.4 LAB ANEUT % Neut% 65.1 LAB AANEUT 1.45-7.50 k/uL Abs Neut 3.76 LAB ALYMP % Lymph% 26.5 LAB AALYMP 1.00-4.00 k/uL Abs Lymph 1.54 LAB AMONO % [place]% 6.5 LAB AAMONO <0.87 k/uL Abs [place] 0.38 LAB AEOS % Eosin% 1.4 LAB AAEOS <0.46 k/uL Abs Eosin 0.08 LAB ABASO % Baso% 0.5 LAB AABASO <0.11 k/uL Abs Baso 0.03 LAB AUNRBC 0 /100 WBC NRBCs 0.0 LAB ABNRBC <0.01 k/uL Absolute nRBC <0.01 LAB DTYP DTYPE Auto Diff Performed By: #### CBCDIF, WSR, CMP, CRP #### [facility] [address] [place], [place] [address] SED RATE WESTERGREN Collected: 01/12/2018 Status: F Source: [facility] 2:14 PM [facility] REPOSITORY TYPE CODE TESTS RESULT OUT OF REFERENCE UNITS RANGE LAB WSR 0-20 mm/hr Sed Rate High [place] 21 Performed By: #### CBCDIF, WSR, CMP, CRP #### [facility] [address] [place], [place] [address] COMP METABOLIC PANEL Collected: 01/12/2018 Status: F Source: [facility] 2:14 PM [facility] REPOSITORY TYPE CODE TESTS RESULT OUT OF REFERENCE UNITS RANGE LAB TP 6.3-8.0 g/dL Protein, Total 6.9 LAB ALB 3.9-4.9 g/dL Albumin 4.4 LAB CA 8.5-10.2 mg/dL Calcium, Total 10.0 LAB TBIL 0.2-1.3 mg/dL Bilirubin, Total 0.4 LAB ALKP 34-123 U/L Alkaline Phosphatase 83 LAB AST 13-35 U/L AST 23 LAB GLU 74-99 mg/dL Glucose 85 Result Comment: The [place] [employer] Association (ADA) provides guidance for cutoff values for fasting glucose and random glucose. The ADA defines fasting as no caloric intake for at least 8 hours. Fas ting plasma glucose results between 100 to 125 mg/dL indicate increased risk for diabetes (prediabetes). Fasting plasma glucose results greater than or equal to 126 mg/dL meet the criteria for diagnosis of diabetes. In the absence of unequivocal hyperglycemia, results should be confirmed by repeat testing. In a patient with classic symptoms of hyperglycemia or hyperglycemic crisis, random plasma glucose results greater than or equal to 200 mg/dL meet the criteria for diagnosis of diabetes. Reference: Standards of Medical Care in Diabetes 2016, [place] Diabetes Association. Diabetes Care. 2016.39(Suppl 1). LAB BUN 7-21 mg/dL BUN 11 LAB CRET 0.58-0.96 mg/dL Creatinine 0.86 LAB NA 136-144 mmol/L Sodium 142 LAB K 3.7-5.1 mmol/L Potassium 4.4 LAB CL 97-105 mmol/L Chloride 101 LAB CO2 22-30 mmol/L CO2 27 LAB AGAP 9-18 mmol/L Anion Gap 14 LAB ALT 7-38 U/L ALT 16 LAB GFRAA eGFR- Amer. >60 LAB GFRNAA . eGFR-All Other Races >60 Result Comment: eGFR (Estimated GFR) Units of measure: mL/min/1.73 meters squared eGFR is derived from the reexpressed MDRD Study equation using the following parameters: serum creatinine, age, gender and race. The creatinine assay has been calibrated to be traceable to IDMS. An eGFR <60 mL/min/1.73m2 for >3 months is consistent with chronic kidney disease. Refer to KDOQI guidelines for clinical interpretation. In patients with unstable renal function, e.g. those with acute kidney injury, the eGFR may not accurately reflect actual GFR. Performed By: #### CBCDIF, WSR, CMP, CRP #### [facility] [employer] [address] [place], [place] [address] C-REACTIVE PROTEIN Collected: 01/12/2018 Status: F Source: [facility] 2:14 PM [facility] REPOSITORY TYPE CODE TESTS RESULT OUT OF REFERENCE UNITS RANGE LAB CRP <0.9 mg/dL High C-Reactive 0.9 Protein Performed By: #### CBCDIF, WSR, CMP, CRP #### [facility] [employer] [address] [place], [place] [address] PROGRESS Observed: 01/12/2018 Status: COMPLETED Source: [place] 1:41 PM [facility] REPOSITORY HNO ID: [id number] Author: Micheal Ulrich III Service: (none) Author Type: Physician Type: Progress Notes Filed: 01/12/2018 3:04 PM Note Text: SUBJECTIVE: This is a 62 year old female that is here today for 1. vertigo--seen by Dr Beebe . Improved with Pam 2. on-going fatigue, chills, fever to 101.3 over past mo. No significant change in BMs, flank pain, dysuria. some mild cough. She has had joint pains over past mo. s/p R TKA, R knee stiffness but no redness, warmth, swelling, or significant pain. Her joints have been painful over past several wks. No rash. Hx of psoriatic arthritis on otezla. PAST MEDICAL HISTORY Diagnosis Date - Abdominal pain, right lower quadrant 2009 intermittant - Alopecia - Anxiety state, unspecified - Breast cancer (HCC) - Diverticulosis of colon (without mention of hemorrhage) - Fatty liver disease, non-alcoholic 02/02/2010 - Hyperlipidemia LDL goal < 130 02/03/2011 - Internal hemorrhoids without mention of complication - Obesity 04/06/2012 - Psoriasis 2008 - Psoriatic arthritis (HCC) 03/08/2010 - Restless legs syndrome 10/21/2014 - RLS (restless legs syndrome) - Stricture and stenosis of esophagus - Unilateral primary osteoarthritis, left knee 2017 Current Outpatient Prescriptions on File Prior to Visit: meclizine (ANTIVERT) 12.5 mg tab TAKE ONE TABLET BY MOUTH THREE TIMES DAILY NEEDED FOR DIZZINESS naproxen (NAPROSYN) 500 mg tablet Take 1 tablet by mouth twice daily as needed (for pain/inflammation). Take with food. atenolol (TENORMIN) 25 mg tablet Take 1 tablet by mouth once daily. pramipexole (MIRAPEX) 0.25 mg tablet 1-2 tablets three times/day as needed for restless legs apremilast (OTEZLA) 30 mg tablet Take 30 mg by mouth once daily. Acidophilus-Pectin, Ward (ACIDOPHILUS EXTRA STRENGTH) 25 million-100 cell-mg tab Take 1 tablet by mouth once daily. Hydrochlorothiazide 12.5 mg capsule Take 1 capsule by mouth once daily. (Patient not taking: Reported on 01/12/2018 ) No current facility-administered medications on file prior to visit. FAMILY HISTORY Problem Relation Age of Onset - Hypertension Mother - other (Other) Father aplastic anemia pancytopenia - other (leukemia) Father 10/2010 - Heart Maternal Grandmother - Diabetes Maternal Grandmother - Heart Paternal Grandmother - Diabetes Brother - Diabetes Brother - None Brother - Hypertension Sister Social History Substance Use Topics - Smoking status: Never Smoker - Smokeless tobacco: Never Used - Alcohol use No BP 131/76 Pulse 65 Temp 37.1 ?C (98.8 ?F) Resp 16 Wt 109.3 kg (241 lb) BMI 39.49 kg/m? . OBJECTIVE: APPEARANCE Well appearing, alert, in no acute distress, well-hydrated, well nourished. and Obese THROAT normal, no erythema NECK Supple, no adenopathy; thyroid symmetric, normal size, no bruits HEART RRR with normal S1 and S2, no murmurs, no gallops, no JVD appreciated LUNG clear to auscultation ABDOMEN bowel sounds normoactive, no bruits, soft, non-tender, non-distended, without organomegaly or palpable masses, no tenderness to palpation BACK: no pain to palpation EXTREMITIES warmth R knee w/o erythema or significant swelling. No calf tenderness or pedal edema NEURO Awake, alert and oriented x 3, Normal gait and No involuntary motions. SKIN Skin color, texture, turgor normal, no suspicious rashes or lesions ASSESSMENT: ?fever of unknown source. Warmth R knee--?early infection? psoriatic arthritis vertigo-resolved PLAN: labs as ordered CXRay orthopedic referral to evaluate the right knee replacement for infection same medications Micheal Ulrich III MD CNOV Observed: 01/12/2018 Status: COMPLETED Source: [place] 1:20 PM [facility] REPOSITORY Office Visit (FAMPWS) PILY EMERY ([id number]) 1955 F Date Time Provider Department 01/12/18 1:20 PM MICHEAL ULRICH III During your visit today, we recorded the following information about you: Temperature Pulse Respiration Blood pressure 98.8 degrees 65/minute 16/minute 131/76 Weight 109.3 kg Micheal Ulrich III MD 01/12/2018 3:04 PM Signed SUBJECTIVE: This is a 62 year old female that is here today for 1. vertigo--seen by Dr Beebe . Improved with Pam 2. on-going fatigue, chills, fever to 101.3 over past mo. No significant change in BMs, flank pain, dysuria. some mild cough. She has had joint pains over past mo. s/p R TKA, R knee stiffness but no redness, warmth, swelling, or significant pain. Her joints have been painful over past several wks. No rash. Hx of psoriatic arthritis on otezla. PAST MEDICAL HISTORY Diagnosis Date - Abdominal pain, right lower quadrant 2008 intermittant - Alopecia - Anxiety state, unspecified - Breast cancer (HCC) - Diverticulosis of colon (without mention of hemorrhage) - Fatty liver disease, non-alcoholic 02/02/2010 - Hyperlipidemia LDL goal < 130 02/03/2011 - Internal hemorrhoids without mention of complication - Obesity 04/06/2012 - Psoriasis 2008 - Psoriatic arthritis (HCC) 03/08/2010 - Restless legs syndrome 10/21/2014 - RLS (restless legs syndrome) - Stricture and stenosis of esophagus - Unilateral primary osteoarthritis, left knee 2017 Current Outpatient Prescriptions on File Prior to Visit: meclizine (ANTIVERT) 12.5 mg tab TAKE ONE TABLET BY MOUTH THREE TIMES DAILY NEEDED FOR DIZZINESS naproxen (NAPROSYN) 500 mg tablet Take 1 tablet by mouth twice daily as needed (for pain/inflammation). Take with food. atenolol (TENORMIN) 25 mg tablet Take 1 tablet by mouth once daily. pramipexole (MIRAPEX) 0.25 mg tablet 1-2 tablets three times/day as needed for restless legs apremilast (OTEZLA) 30 mg tablet Take 30 mg by mouth once daily. Acidophilus-Pectin, Ward (ACIDOPHILUS EXTRA STRENGTH) 25 million-100 cell-mg tab Take 1 tablet by mouth once daily. Hydrochlorothiazide 12.5 mg capsule Take 1 capsule by mouth once daily. (Patient not taking: Reported on 01/12/2018 ) No current facility-administered medications on file prior to visit. FAMILY HISTORY Problem Relation Age of Onset - Hypertension Mother - other (Other) Father aplastic anemia pancytopenia - other (leukemia) Father 10/2010 - Heart Maternal Grandmother - Diabetes Maternal Grandmother - Heart Paternal Grandmother - Diabetes Brother - Diabetes Brother - None Brother - Hypertension Sister Social History Substance Use Topics - Smoking status: Never Smoker - Smokeless tobacco: Never Used - Alcohol use No BP 131/76 Pulse 65 Temp 37.1 ?C (98.8 ?F) Resp 16 Wt 109.3 kg (241 lb) BMI 39.49 kg/m? . OBJECTIVE: APPEARANCE Well appearing, alert, in no acute distress, well- hydrated, well nourished. and Obese THROAT normal, no erythema NECK Supple, no adenopathy; thyroid symmetric, normal size, no bruits HEART RRR with normal S1 and S2, no murmurs, no gallops, no JVD appreciated LUNG clear to auscultation ABDOMEN bowel sounds normoactive, no bruits, soft, non-tender, non-distended, without organomegaly or palpable masses, no tenderness to palpation BACK: no pain to palpation EXTREMITIES warmth R knee w/o erythema or significant swelling. No calf tenderness or pedal edema NEURO Awake, alert and oriented x 3, Normal gait and No involuntary motions. SKIN Skin color, texture, turgor normal, no suspicious rashes or lesions ASSESSMENT: ?fever of unknown source. Warmth R knee--?early infection? psoriatic arthritis vertigo-resolved PLAN: labs as ordered CXRay orthopedic referral to evaluate the right knee replacement for infection same medications LUIS Edwards MD, III MD 01/12/2018 2:03 PM Signed PLAN: labs as ordered orthopedic referral to evaluate the right knee replacement for infection same medications Micheal Ulrich III MD Referring Provider: SELF [[id number]] Allergies As of Date: 01/12/2018 Noted Allergy Reaction PENICILLINS 02/24/2005 Comments: YEAST INFECTION Date Reviewed: 01/12/2018 Reviewed by: Constance (Senior Data Scientist) MARQUES Velázquez - Fully Assessed Primary Visit Diagnosis:Fever, unspecified fever cause [R50.9] Other Visit Diagnoses:Psoriatic arthritis (HCC) [L40.50] History of knee replacement, total, right [Z96.651] Cough [R05] Order(s):CBC + DIFF [SQCBCDIF] Order #: [id number] FUTURE COMP METABOLIC PANEL [SQCMP] Order #: [id number] FUTURE SED RATE WESTERGREN [SQWSR] Order #: [id number] FUTURE C-REACTIVE PROTEIN (CRP) [SQCRP] Order #: [id number] FUTURE URINALYSIS WITH MICROSCOPIC [SQUAWMIC] Order #: [id number] XR CHEST 2V FRONTAL/LAT [2439586] Order #: [id number] FUTURE CONSULT TO ORTHOPAEDICS [9008] Order #: [id number]: 1 Prescriptions as of 01/12/2018 Sig: MECLIZINE 12.5 MG TABLET TAKE ONE TABLET BY MOUTH THRE* NAPROXEN 500 MG TABLET Take 1 tablet by mouth twice * ATENOLOL 25 MG TABLET Take 1 tablet by mouth once d* PRAMIPEXOLE 0.25 MG TABLET 1-2 tablets three times/day a* APREMILAST 30 MG TABLET Take 30 mg by mouth once roberta* ACIDOPHILUS 25 MILLION CELL-P* Take 1 tablet by mouth once d* HYDROCHLOROTHIAZIDE 12.5 MG C* Take 1 capsule by mouth once * Patient not taking: Reported on 01/12/2018 Problem List As Of Date 01/12/2018 Noted Resolved DYSMETABOLIC SYNDROME X [E88.81] INVALID FOR* ATROPHIC VAGINITIS [N95.2] INVALID FOR* Costochondritis [M94.0] INVALID FOR* Psoriasis [L40.9] Acute gastritis without mention of hemorrhage [*INVALID FOR*11/15/2016 Psoriatic arthritis [L40.50] INVALID FOR* Fatty liver disease, nonalcoholic [K76.0] INVALID FOR* Hyperlipidemia with target low density lipoprot*INVALID FOR* Obesity [E66.9] INVALID FOR* 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.*INVALID FOR* Restless legs syndrome [G25.81] INVALID FOR* Insomnia secondary to situational depression [F*INVALID FOR* Post-traumatic osteoarthritis of right knee [M1*INVALID FOR* Degenerative tear of medial meniscus of right k*INVALID FOR* Ductal carcinoma in situ (DCIS) of right breast*INVALID FOR* Situational anxiety [F41.8] INVALID FOR* Other instructions from your clinician: PLAN: labs as ordered orthopedic referral to evaluate the right knee replacement for infection same medications Micheal Ulrich III MD Encounter Status:Closed by MICHEAL ULRICH III, MD on 01/12/18 PROGRESS Observed: 10/26/2017 Status: COMPLETED Source: [place] 1:54 PM [facility] REPOSITORY HNO ID: [id number] Author: Micheal Ulrich III Service: (none) Author Type: Physician Type: Progress Notes Filed: 10/26/2017 6:06 PM Note Text: SUBJECTIVE: This is a 62 year old female that is here today for swelling of both ankles in past few wks, not helped by leg elevation. Shoes are tight. No pain in calves or thighes. No hx of DVT. Hot flushing sensation in R foot. Denies increase salt in diet. No chest pain or RIVERS. Lots of palpitations but has had a lot of stress and anxiety since mom recently with advanced heart valve disease. She is asking for refill of Ativan which she has used sparingly. She notes some situational depression but still has ambition and finds enjoyment in doing things PAST MEDICAL HISTORY Diagnosis Date - Abdominal pain, right lower quadrant 2008 intermittant - Alopecia - Anxiety state, unspecified - Breast cancer (HCC) - Diverticulosis of colon (without mention of hemorrhage) - Fatty liver disease, non-alcoholic 02/02/2010 - Hyperlipidemia LDL goal < 130 02/03/2011 - Internal hemorrhoids without mention of complication - Obesity 04/06/2012 - Psoriasis 2008 - Psoriatic arthritis (HCC) 03/08/2010 - Restless legs syndrome 10/21/2014 - RLS (restless legs syndrome) - Stricture and stenosis of esophagus - Unilateral primary osteoarthritis, left knee 2017 Current Outpatient Prescriptions on File Prior to Visit: naproxen (NAPROSYN) 500 mg tablet Take 1 tablet by mouth twice daily as needed (for pain/inflammation). Take with food. atenolol (TENORMIN) 25 mg tablet Take 1 tablet by mouth once daily. pramipexole (MIRAPEX) 0.25 mg tablet 1-2 tablets three times/day as needed for restless legs meclizine (ANTIVERT) 12.5 mg tab Take 1 tablet by mouth three times daily as needed (dizziness). apremilast (OTEZLA) 30 mg tablet Take 30 mg by mouth once daily. Acidophilus-Pectin, Ward (ACIDOPHILUS EXTRA STRENGTH) 25 million-100 cell-mg tab Take 1 tablet by mouth once daily. No current facility-administered medications on file prior to visit. FAMILY HISTORY Problem Relation Age of Onset - Hypertension Mother - Other [OTHER] Father aplastic anemia pancytopenia - leukemia [OTHER] Father 10/2010 - Heart Maternal Grandmother - Diabetes Maternal Grandmother - Heart Paternal Grandmother - Diabetes Brother - Diabetes Brother - None Brother - Hypertension Sister Social History Substance Use Topics - Smoking status: Never Smoker - Smokeless tobacco: Never Used - Alcohol use No BP 116/66 (BP Site: Left Arm, BP Position: Sitting, BP Cuff Size: Large Adult) Pulse 79 Resp 16 Wt 108 kg (238 lb 1.6 oz) SpO2 99% BMI 39.02 kg/m? . OBJECTIVE: APPEARANCE Well appearing, alert, in no acute distress, well-hydrated, well nourished. and Obese NECK Supple, no adenopathy; thyroid symmetric, normal size, no bruits HEART RRR with normal S1 and S2, no murmurs, no gallops, no JVD appreciated LUNG clear to auscultation ABDOMEN soft, non-tender, non-distended, without organomegaly or palpable masses, no tenderness to palpation EXTREMITIES Extremities normal, No deformities, No skin discoloration, Normal pulses bilaterally. and 3/4 nonpitting edema of the dorsum of the feet and lower legs bilaterally. No evidence of stasis dermatitis and no ulceration Appearance: well dressed well groomed, cooperative and pleasant Behavior: good eye contact Speech: fluent and coherent Mood: euthymic Affect: constricted Perceptions: none Thought process: goal directed Thought Content: preoccupations with grieving parents' deaths Intelligence level: normal Insight: fair Judgment: good Lab Results for PILY EMERY ( ) as of 10/26/2017 18:05 Ref. Range 09/02/2017 00:00 NA Latest Ref Range: 136 - 145 mmol/L 141 K Latest Ref Range: 3.5 - 5.1 mmol/L 4.3 Chloride Latest Ref Range: 98 - 107 MEQ/L 104 CO2 Latest Ref Range: 21 - 32 MEQ/L 29 BUN Latest Ref Range: 7 - 18 MG/DL 16 Creatinine Latest Ref Range: 0.6 - 1.3 MG/DL 0.94 Glucose Latest Ref Range: 74 - 106 MG/DL 85 Albumin Latest Ref Range: 3.2 - 4.6 gm/dL 4.0 AST Latest Ref Range: 8 - 37 U/L 22 WBC Latest Ref Range: 3.9 - 11 K/uL 7.5 RBC Latest Ref Range: 4 - 6 M/uL 4.73 HGB Latest Ref Range: 14 - 16.5 g/dL 13.5 (A) MCV Latest Ref Range: 79 - 98 fL 87.1 MCH Latest Ref Range: 25.4 - 34.6 pg 28.5 MCHC Latest Ref Range: 30 - 36 g/dL 32.8 MPV Latest Ref Range: 7.4 - 10.4 fL 8.9 HCT Latest Ref Range: 39 - 55 % 41.2 Platelet Latest Ref Range: 140 - 440 K/uL 165 ASSESSMENT: peripheral edema situational anxiety PLAN: HCTZ 12.5 mg every day for edema low salt diet and keep legs elevated while sitting may use knee high support hose. same other medications use ativan 0.5mg sparingly as needed for anxiety Discussion regarding heart valves?reassurance 30 minute visit with greater than 50% obtaining history, explaining diagnoses and treatment Micheal Ulrich III MD CNOV Observed: 10/26/2017 Status: COMPLETED Source: [place] 1:40 PM [facility] REPOSITORY Office Visit (FAMPWS) PILY EMERY ([id number]) 1955 F Date Time Provider Department 10/26/17 1:40 PM [facility] During your visit today, we recorded the following information about you: Pulse Respiration Blood pressure Weight 79/minute 16/minute 116/66 108 kg Micheal Ulrich III MD 10/26/2017 6:06 PM Signed SUBJECTIVE: This is a 62 year old female that is here today for swelling of both ankles in past few wks, not helped by leg elevation. Shoes are tight. No pain in calves or thighes. No hx of DVT. Hot flushing sensation in R foot. Denies increase salt in diet. No chest pain or RIVERS. Lots of palpitations but has had a lot of stress and anxiety since mom recently with advanced heart valve disease. She is asking for refill of Ativan which she has used sparingly. She notes some situational depression but still has ambition and finds enjoyment in doing things PAST MEDICAL HISTORY Diagnosis Date - Abdominal pain, right lower quadrant 2008 intermittant - Alopecia - Anxiety state, unspecified - Breast cancer (HCC) - Diverticulosis of colon (without mention of hemorrhage) - Fatty liver disease, non-alcoholic 02/02/2010 - Hyperlipidemia LDL goal < 130 02/03/2011 - Internal hemorrhoids without mention of complication - Obesity 04/06/2012 - Psoriasis 2008 - Psoriatic arthritis (HCC) 03/08/2010 - Restless legs syndrome 10/21/2014 - RLS (restless legs syndrome) - Stricture and stenosis of esophagus - Unilateral primary osteoarthritis, left knee 2018 Current Outpatient Prescriptions on File Prior to Visit: naproxen (NAPROSYN) 500 mg tablet Take 1 tablet by mouth twice daily as needed (for pain/inflammation). Take with food. atenolol (TENORMIN) 25 mg tablet Take 1 tablet by mouth once daily. pramipexole (MIRAPEX) 0.25 mg tablet 1-2 tablets three times/day as needed for restless legs meclizine (ANTIVERT) 12.5 mg tab Take 1 tablet by mouth three times daily as needed (dizziness). apremilast (OTEZLA) 30 mg tablet Take 30 mg by mouth once daily. Acidophilus-Pectin, Ward (ACIDOPHILUS EXTRA STRENGTH) 25 million-100 cell-mg tab Take 1 tablet by mouth once daily. No current facility-administered medications on file prior to visit. FAMILY HISTORY Problem Relation Age of Onset - Hypertension Mother - Other [OTHER] Father aplastic anemia pancytopenia - leukemia [OTHER] Father 10/2010 - Heart Maternal Grandmother - Diabetes Maternal Grandmother - Heart Paternal Grandmother - Diabetes Brother - Diabetes Brother - None Brother - Hypertension Sister Social History Substance Use Topics - Smoking status: Never Smoker - Smokeless tobacco: Never Used - Alcohol use No BP 116/66 (BP Site: Left Arm, BP Position: Sitting, BP Cuff Size: Large Adult) Pulse 79 Resp 16 Wt 108 kg (238 lb 1.6 oz) SpO2 99% BMI 39.02 kg/m? . OBJECTIVE: APPEARANCE Well appearing, alert, in no acute distress, well- hydrated, well nourished. and Obese NECK Supple, no adenopathy; thyroid symmetric, normal size, no bruits HEART RRR with normal S1 and S2, no murmurs, no gallops, no JVD appreciated LUNG clear to auscultation ABDOMEN soft, non-tender, non-distended, without organomegaly or palpable masses, no tenderness to palpation EXTREMITIES Extremities normal, No deformities, No skin discoloration, Normal pulses bilaterally. and 3/4 nonpitting edema of the dorsum of the feet and lower legs bilaterally. No evidence of stasis dermatitis and no ulceration Appearance: well dressed well groomed, cooperative and pleasant Behavior: good eye contact Speech: fluent and coherent Mood: euthymic Affect: constricted Perceptions: none Thought process: goal directed Thought Content: preoccupations with grieving parents' deaths Intelligence level: normal Insight: fair Judgment: good Lab Results for PILY EMERY ( ) as of 10/26/2017 18:05 Ref. Range 09/02/2017 00:00 NA Latest Ref Range: 136 - 145 mmol/L 141 K Latest Ref Range: 3.5 - 5.1 mmol/L 4.3 Chloride Latest Ref Range: 98 - 107 MEQ/L 104 CO2 Latest Ref Range: 21 - 32 MEQ/L 29 BUN Latest Ref Range: 7 - 18 MG/DL 16 Creatinine Latest Ref Range: 0.6 - 1.3 MG/DL 0.94 Glucose Latest Ref Range: 74 - 106 MG/DL 85 Albumin Latest Ref Range: 3.2 - 4.6 gm/dL 4.0 AST Latest Ref Range: 8 - 37 U/L 22 WBC Latest Ref Range: 3.9 - 11 K/uL 7.5 RBC Latest Ref Range: 4 - 6 M/uL 4.73 HGB Latest Ref Range: 14 - 16.5 g/dL 13.5 (A) MCV Latest Ref Range: 79 - 98 fL 87.1 MCH Latest Ref Range: 25.4 - 34.6 pg 28.5 MCHC Latest Ref Range: 30 - 36 g/dL 32.8 MPV Latest Ref Range: 7.4 - 10.4 fL 8.9 HCT Latest Ref Range: 39 - 55 % 41.2 Platelet Latest Ref Range: 140 - 440 K/uL 165 ASSESSMENT: peripheral edema situational anxiety PLAN: HCTZ 12.5 mg every day for edema low salt diet and keep legs elevated while sitting may use knee high support hose. same other medications use ativan 0.5mg sparingly as needed for anxiety Discussion regarding heart valves?reassurance 30 minute visit with greater than 50% obtaining history, explaining diagnoses and treatment LUIS Edwards MD, III MD 10/26/2017 2:24 PM Addendum PLAN: HCTZ 12.5 mg every day for edema low salt diet and keep legs elevated while sitting may use knee high support hose. same other medications use ativan 0.5mg sparingly as needed for anxiety Micheal Ulrich III MD Referring Provider: MICHEAL ULRICH III [[id number]] Allergies As of Date: 10/26/2017 Noted Allergy Reaction PENICILLINS 02/24/2005 Comments: YEAST INFECTION Date Reviewed: 10/26/2017 Reviewed by: Vanna Thompson Ma - Fully Assessed Reason for Visit: SHILOH ankle swelling [Other] Cmt: x 2 months Primary Visit Diagnosis:Peripheral edema [R60.9] Other Visit Diagnosis:Situational anxiety [F41.8] Order(s):Hydrochlorothiazide 12.5 mg capsuleTake 1 capsule by mouth once daily.Disp: 30 capsuleRfl: 1 LORazepam (ATIVAN) 0.5 mg tabTake 1 tablet by mouth twice daily as needed (anxiety) for up to 30 days.Disp: 20 tabletRfl: 0 Prescriptions as of 10/26/2017 Sig: NAPROXEN 500 MG TABLET Take 1 tablet by mouth twice * ATENOLOL 25 MG TABLET Take 1 tablet by mouth once d* PRAMIPEXOLE 0.25 MG TABLET 1-2 tablets three times/day a* MECLIZINE 12.5 MG TABLET Take 1 tablet by mouth three * APREMILAST 30 MG TABLET Take 30 mg by mouth once roberta* ACIDOPHILUS 25 MILLION CELL-P* Take 1 tablet by mouth once d* HYDROCHLOROTHIAZIDE 12.5 MG C* Take 1 capsule by mouth once * LORAZEPAM 0.5 MG TABLET Take 1 tablet by mouth twice * Problem List As Of Date 10/26/2017 Noted Resolved DYSMETABOLIC SYNDROME X [E88.81] INVALID FOR* ATROPHIC VAGINITIS [N95.2] INVALID FOR* Costochondritis [M94.0] INVALID FOR* Psoriasis [L40.9] Acute gastritis without mention of hemorrhage [*INVALID FOR*11/15/2016 Psoriatic arthritis [L40.50] INVALID FOR* Fatty liver disease, nonalcoholic [K76.0] INVALID FOR* Hyperlipidemia with target low density lipoprot*INVALID FOR* Obesity [E66.9] INVALID FOR* 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 same other medications use ativan 0.5mg sparingly as needed for anxiety Micheal Ulrich III MD Prescriptions ordered this encounter Disp Refills Start End HYDROCHLOROTHIAZIDE 12.5 MG CAPSULE 30 c* 1 10/26/2017 Route: ORAL Sig: Take 1 capsule by mouth once daily. LORAZEPAM 0.5 MG TABLET 20 t* 0 10/26/2017 11/25/2017 Class: Print RX Route: ORAL Sig: Take 1 tablet by mouth twice daily as needed (anxiety) for up to 30 days. Medications Discontinued During This Encounter LORazepam (ATIVAN) 0.5 mg tab 20 t* 0 05/05/2017 10/26/2017 Class: Call Rx Route: ORAL Sig: Take 1 tablet by mouth twice daily as needed for up to 30 days. Disc: Reason for discontinue is not on file. Encounter Status:Closed by MICHEAL ULRICH III, MD on 10/26/17 DOWNTIME REPORT Observed: 09/14/2017 Status: F Source: [place] 2:15 PM [facility] REPOSITORY [facility] Medical Records Department [address] [place] [id number] Downtime Report MR#: [id number] Acct: [id number] Name: PILY EMERY Rep #: [id number] : 1955 62 From: Darius Bernal PCP: Micheal Ulrich III, MD Status: REG CLI This patient was seen during an EMR downtime August 28, 2017 - September 04, 2017. This patient may have a combination of paper and electronic documentation or all paper documentation. All documentation is viewable within the e-chart portion of [facility] for each patient visit. COMPREHENSIVE METABOLIC Collected: 08/29/2017 Status: F Source: BOB[place] PROFIL 3:16 PM [facility] REPOSITORY Order Comment: RESULT(S) PREVIOUSLY REPORTED ON MANUAL REQUISITION DURING DOWNTIME. TYPE CODE TESTS RESULT OUT OF RANGE REFERENCE UNITS LAB L501.0100 74-106 mg/dL Normal GLU 85 Result Comment: Please note revised GLUCOSE reference range effective 2017. LAB L501.1000 7-18 mg/dL Normal BUN 16 LAB L501.1100 0.55-1.02 mg/dL Normal CREAT,SERUM 0.94 Result Comment: The validity of the calculated GFR AND GFRAA in patients over 70 years has not been determined. Clinical correlation is essential. LAB L501.1110 >60 mL/min Normal EST GFR 64 LAB L501.1115 >60 mL/min Normal EST GFR - AA 78 LAB L501.1300 10-20 RATIO Normal BUN/CRE 17.0 LAB L501.1500 6.4-8.2 g/dL Normal T PROT 7.8 LAB L501.1800 3.2-5.0 g/dL Normal ALB 4.0 LAB L501.1950 2.2-4.2 g/dL Normal GLOB 3.8 LAB L501.2000 0.9-2.4 RATIO Normal A/G 1.1 LAB L501.2200 8.5-10.1 mg/dL Normal CA 9.4 LAB L501.4100 15-37 U/L Normal AST 22 LAB L501.4305 45-117 U/L Normal ALK P 91 LAB L501.4405 13-56 U/L Normal ALT 22 LAB L501.4600 0.20-1.00 mg/dL Normal T BILI 0.40 LAB L501.5300 136-145 mmol/L Normal NA 141 LAB L501.5600 3.5-5.1 mmol/L Normal K 4.3 LAB L501.5900 98-107 mmol/L Normal CL 104 LAB L501.6100 21.0-32.0 mmol/L Normal CO2 29.0 LAB L501.6200 5-15 Normal GAP 8 Performed By: #### L500.4050 #### [facility] [address] [place], [address] CBC W/DIFF, AUTOMATED Collected: 08/29/2017 Status: F Source: [place] 3:16 PM [facility] REPOSITORY Order Comment: RESULT(S) PREVIOUSLY REPORTED ON MANUAL REQUISITION DURING DOWNTIME. TYPE CODE TESTS RESULT OUT OF RANGE REFERENCE UNITS LAB L100.1000 4.4-11.0 K/mm3 Normal WBC 7.5 LAB L100.1200 4.2-5.4 M/mm3 Normal RBC 4.73 LAB L100.1300 12.0-15.0 g/dl Normal HGB 13.5 LAB L100.1400 37-47 % Normal HCT 41.2 LAB L100.1500 81-99 fL Normal MCV 87.1 LAB L100.1600 27.0-32.0 pg Normal MCH 28.5 LAB L100.1700 32-36 g/gl Normal MCHC 32.8 LAB L100.1810 11.6-14.6 % Normal RDW CV 13.9 LAB L100.1820 35.1-43.9 fl High RDW SD 44.3 LAB L100.1900 150-450 K/mm3 Normal PLT 165 LAB L100.2000 6.2-12.0 fl Normal MPV 8.9 LAB L100.2100 47-70 % Normal NEUT% 67.3 LAB L100.2200 19-41 % Normal LY% 25.4 LAB L100.2300 0-10 % Normal MONO% 5.6 LAB L100.2400 0-5 % Normal EO% 1.2 LAB L100.2500 0-1 % Normal BASO% 0.4 LAB L100.2550 0.0-0.9 % Normal IM GRAN % 0.100 Result Comment: IG% - Immature Granulocytes (promyelocytes, myelocytes and metamyelocytes) > 1% indicates that a LEFT SHIFT is Present. LAB L100.2620 2.0-7.7 X10 3/uL Normal Absolute Neut 5.1 LAB L100.2720 0.83-4.51 X10 3/ul Normal Absolute Lymph 1.91 Performed By: #### L100.0100 #### [facility] [address] [place] [address]. [place], [place], [address] PROGRESS Observed: 08/29/2017 Status: COMPLETED Source: [place] 1:38 PM [facility] REPOSITORY HNO ID: [id number] Author: Tien José Service: (none) Author Type: Nurse Practitioner Type: Progress Notes Filed: 08/29/2017 2:31 PM Note Text: Chief Complaint Patient presents with: Established Patient HPI: Pily Emery is a 62 year old female who presents here today for DCIS. H/o abnormality on screening mammogram 05/13/2013. ?? Underwent biopsy 07/11/2013. ?? Pathology: DCIS (5 mm); cribriform, solid and comedo pattern; high nuclear grade with necrosis (expansive comedo necrosis). ER 95% with HER2 2-3+. Then underwent lumpectomy 07/30/2013: Focal lobular carcinoma in situ. Multifocal atypical lobular hyperplasia with atypia. Posterior margin clear with redo. ?? Has h/o psoriatic arthritis. Affects hands and shoulders mainly. Chronic fatigue. ?? Radiation:09/05/13 to 10/18/13. ?? Current therapy:tamoxifen. Started end of September 2013. Has taken on and off since starting d/t joint pain. ?? Pt. has been off of tamoxifen since 2016. I can't take the pain that it causes. ? My mom in Apr. So, I've had a lot of stress-it's to the point that I'm wrapping up loose ends. ?? Appetite:good Energy level:it's not good right now-I'm gonna get back to the gym this week. Denies fevers. Resp:denies cough or sob Cardiac:denies chest pain, occ. palpitations with anxiety since mom's -they are getting much better. GI:denies abd, n/v, moving bowels regularly :denies dysuria/hematuria Extrem:denies pain to back/bones/joints, R knee stiffness s/p total knee, I had an injection in my L knee last knee. Endo:denies hot flashes Neuro:denies symtoms of neuropathy Skin:denies rashes/lesions Heme:denies bleeding The ROS is otherwise negative. Past medical history, appointments, medications, allergies reviewed. No changes. EXAM: BP 122/65 Pulse 67 Temp 36.9 ?C (98.4 ?F) (Oral) Wt 106.4 kg (234 lb 8 oz) BMI 38.43 kg/m? APPEARANCE Well appearing, alert, in no acute distress, well-hydrated, well nourished. HEART RRR with normal S1 and S2, no murmurs LUNG clear to auscultation BREAST FEMALE no mass/nodule b/l, scar to R outer/radiation changes LYMPH NODES No cervical lymphadenopathy, No supraclavicular lymphadenopathy and No axillary lymphadenopathy. ABDOMEN bowel sounds normoactive, no bruits, soft, non-tender, non-distended, without organomegaly or palpable masses EXTREMITIES No edema NEURO Awake, alert and oriented x 3, Normal gait and No involuntary motions. SKIN Skin color, texture, turgor normal, no suspicious rashes or lesions RADIOLOGY: Mammogram 08/28/17: IMPRESSION: BENIGN FINDING There is no mammographic evidence of malignancy.A 1 year screening mammogram is recommended. ASSESSMENT/PLAN: 1. Ductal carcinoma in situ (DCIS) of right breast - ICD9: 233.0, ICD10: High grade DCIS of the right breast s/p lumpectomy, s/p radiation treatment to the right breast finished on 10/18/13. - ?No concerning findings on exam. - ?Tamoxifen-Pt. stopped prematurely-initially took inconsistently. - Reviewed mammogram with pt. - ?Mammogram due July 2018. - Rx bras/prosthesis. - ?Follow up in 6 months. - ?Pt. aware to call office with any questions/concerns. The patient indicates understanding of these issues and agrees with the plan. Tien José APRN.CNP CNOVSP Observed: 08/29/2017 Status: COMPLETED Source: [place] 1:30 PM [facility] REPOSITORY Visit (SP) Office (LILIA) PILY EMERY ([id number]) 1955 F Date Time Provider Department 08/29/17 1:30 PM TIEN JOSÉ (DONNIE) L[place]IA During your visit today, we recorded the following information about you: Temperature Pulse Blood pressure Weight 98.4 degrees 67/minute 122/65 106.4 kg Tien José APRN.CNP 08/29/2017 2:31 PM Signed Chief Complaint Patient presents with: Established Patient HPI: Pily Emery is a 62 year old female who presents here today for DCIS. H/o abnormality on screening mammogram 05/13/2013. ?? Underwent biopsy 07/11/2013. ?? Pathology: DCIS (5 mm); cribriform, solid and comedo pattern; high nuclear grade with necrosis (expansive comedo necrosis). ER 95% with HER2 2-3+. Then underwent lumpectomy 07/30/2013: Focal lobular carcinoma in situ. Multifocal atypical lobular hyperplasia with atypia. Posterior margin clear with redo. ?? Has h/o psoriatic arthritis. Affects hands and shoulders mainly. Chronic fatigue. ?? Radiation:09/05/13 to 10/18/13. ?? Current therapy:tamoxifen. Started end of September 2013. Has taken on and off since starting d/t joint pain. ?? Pt. has been off of tamoxifen since 2016. I can't take the pain that it causes. ? My mom in Apr. So, I've had a lot of stress-it's to the point that I'm wrapping up loose ends. ?? Appetite:good Energy level:it's not good right now-I'm gonna get back to the gym this week. Denies fevers. Resp:denies cough or sob Cardiac:denies chest pain, occ. palpitations with anxiety since mom's -they are getting much better. GI:denies abd, n/v, moving bowels regularly :denies dysuria/hematuria Extrem:denies pain to back/bones/joints, R knee stiffness s/p total knee, I had an injection in my L knee last knee. Endo:denies hot flashes Neuro:denies symtoms of neuropathy Skin:denies rashes/lesions Heme:denies bleeding The ROS is otherwise negative. Past medical history, appointments, medications, allergies reviewed. No changes. EXAM: BP 122/65 Pulse 67 Temp 36.9 ?C (98.4 ?F) (Oral) Wt 106.4 kg (234 lb 8 oz) BMI 38.43 kg/m? APPEARANCE Well appearing, alert, in no acute distress, well- hydrated, well nourished. HEART RRR with normal S1 and S2, no murmurs LUNG clear to auscultation BREAST FEMALE no mass/nodule b/l, scar to R outer/radiation changes LYMPH NODES No cervical lymphadenopathy, No supraclavicular lymphadenopathy and No axillary lymphadenopathy. ABDOMEN bowel sounds normoactive, no bruits, soft, non-tender, non-distended, without organomegaly or palpable masses EXTREMITIES No edema NEURO Awake, alert and oriented x 3, Normal gait and No involuntary motions. SKIN Skin color, texture, turgor normal, no suspicious rashes or lesions RADIOLOGY: Mammogram 08/28/17: IMPRESSION: BENIGN FINDING There is no mammographic evidence of malignancy.A 1 year screening mammogram is recommended. ASSESSMENT/PLAN: 1. Ductal carcinoma in situ (DCIS) of right breast - ICD9: 233.0, ICD10: High grade DCIS of the right breast s/p lumpectomy, s/p radiation treatment to the right breast finished on 10/18/13. - ?No concerning findings on exam. - ?Tamoxifen-Pt. stopped prematurely-initially took inconsistently. - Reviewed mammogram with pt. - ?Mammogram due July 2018. - Rx bras/prosthesis. - ?Follow up in 6 months. - ?Pt. aware to call office with any questions/concerns. The patient indicates understanding of these issues and agrees with the plan. Tien José APRN.DRIVER UTILITY WORKER Referring Provider: TIEN JOSÉ ([facility]) [[id number]] Allergies As of Date: 08/29/2017 Noted Allergy Reaction PENICILLINS 02/24/2005 Comments: YEAST INFECTION Date Reviewed: 08/29/2017 Reviewed by: Tien ([facility]) Estefanía - Fully Assessed Reason for Visit: Established Patient [175] Primary Visit Diagnosis:Ductal carcinoma in situ (DCIS) of right breast [D05.11] Order(s):BREAST PROSTHESIS, MASTECTOMY BRA [[id number]] Order #: [id number]: 3 BREAST PROSTHESIS, MASTECTOMY FORM [[id number]] Order #: [id number] Follow-up and Disposition History Recorded Prescriptions as of 08/29/2017 Sig: NAPROXEN 500 MG TABLET Take 1 tablet by mouth twice * ATENOLOL 25 MG TABLET Take 1 tablet by mouth once d* PRAMIPEXOLE 0.25 MG TABLET 1-2 tablets three times/day a* MECLIZINE 12.5 MG TABLET Take 1 tablet by mouth three * APREMILAST 30 MG TABLET Take 30 mg by mouth once roberta* ACIDOPHILUS 25 MILLION CELL-P* Take 1 tablet by mouth once d* Problem List As Of Date 08/29/2017 Noted Resolved DYSMETABOLIC SYNDROME X [E88.81] INVALID FOR* ATROPHIC VAGINITIS [N95.2] INVALID FOR* Costochondritis [M94.0] INVALID FOR* Psoriasis [L40.9] Acute gastritis without mention of hemorrhage [*INVALID FOR*11/15/2016 Psoriatic arthritis [L40.50] INVALID FOR* Fatty liver disease, nonalcoholic [K76.0] INVALID FOR* Hyperlipidemia with target low density lipoprot*INVALID FOR* Obesity [E66.9] INVALID FOR* 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.*INVALID FOR* Restless legs syndrome [G25.81] INVALID FOR* Insomnia secondary to situational depression [F*INVALID FOR* Post-traumatic osteoarthritis of right knee [M1*INVALID FOR* Degenerative tear of medial meniscus of right k*INVALID FOR* Ductal carcinoma in situ (DCIS) of right breast*INVALID FOR* Situational anxiety [F41.8] INVALID FOR* Encounter Status:Closed by TIEN JOSÉ DRIVER UTILITY WORKER on 08/29/17 CNCO Observed: 08/28/2017 Status: COMPLETED Source: [place] 2:16 PM [facility] REPOSITORY HNO ID: [id number] Author: Mammography Coordinator Service: (none) Author Type: Physician Type: Letter Filed: 08/29/2017 11:32 PM Note Text: August 28, 2017 PID: [id number] Pily Emery [address] [place] [address] Dear Ms. Emery, We are pleased to inform you that the results of your recent breast imaging exam on 08/28/2017 are normal. Early detection of cancer is very important. We also understand recommendations regarding breast cancer screening are controversial. Please discuss with your primary care provider which strategy is best for you and whether a mammogram is right for you. Your imaging studies and report will be kept on file at [facility] as part of your permanent medical record and are available for your continuing care. Thank you for allowing us to help in meeting your health care needs. Sincerely, Dr. Bocanegra Interpreting Radiologist [facility] (Normal over 40) OMAR SCREENING Observed: 08/28/2017 Status: F Source: [place] 12:01 PM [facility] REPOSITORY * * *Final Report* * * DATE OF EXAM: Aug 28 2017 12:01PM [facility] 0581 - [facility] [place] SCREENING / PROCEDURE REASON: multiple diagnoses * * * * Physician Interpretation * * * * RESULT: #[id number] - OMAR SCREENING BILATERAL DIGITAL SCREENING MAMMOGRAM WITH CAD: 08/28/2017 HISTORY: Screening Mammogram - patient reports NO breast symptoms /priors available for comparison. RESULT: TECHNIQUE: The study was acquired using full field digital technology and interpreted from soft copy. Current study was also evaluated with a Computer Aided Detection (CAD). Comparison is made to exams dated: 08/12/2016 mammogram, 07/17/2015 mammogram, and 06/06/2014 mammogram - [facility]. There are scattered fibroglandular elements in both breasts. There are benign calcifications in both breasts. There also are stable post operative changes, post radiation changes, and a lumpectomy cavity in the right breast. No significant masses, calcifications, or other findings are seen in either breast. There has been no significant interval change. IMPRESSION: BENIGN FINDING There is no mammographic evidence of malignancy.A 1 year screening mammogram is recommended. Haroon Bocanegra M.D., jr/denisse:08/28/2017 14:16:58 Chemistry Specialist: Louisa CAZARES(Radha)(Sarah), [facility] letter sent: Normal over 40 Mammogram BI-RADS: 2 Benign finding [place]re: Denisse Transcribe Date/Time: Aug 28 2017 11:39A Dictated by: HAROON BOCANEGRA MD This examination was interpreted and the report reviewed and electronically signed by: HAROON BOCANEGRA MD on Aug 28 2017 2:16PM EST [id number] Observed: 08/28/2017 Status: COMPLETED Source: [place] 11:37 AM [facility] REPOSITORY O ID: [id number] Author: Shoshana Cazares Service: (none) Author Type: (none) Type: Progress Notes Filed: 08/28/2017 11:38 AM Note Text: Radiology Service Progress Note PATIENT NAME: Pily Emery DATE OF SERVICE: August 28, 2017 TIME: 11:37 AM PATIENT IDENTITY VERIFICATION COMPLETED USING TWO (2) METHODS: Patient confirmed name verbally and Date of . PATIENT GENDER DATA: Female. status: : No status: NO. PATIENT RELEVANT IMPLANT DATA REVIEWED: Not Applicable RADIOLOGY DEPARTMENT: [facility] PERIPHERAL IV DATA: Not applicable SIGNED BY: Shoshana Acevedo Rt August 28, 2017 11:37 AM URINALYSIS WITH Collected: 05/02/2017 Status: F Source: [place] MICROSCOPIC 5:20 PM [facility] REPOSITORY TYPE CODE TESTS RESULT OUT OF RANGE REFERENCE UNITS LAB UCOL Yellow Color Yellow LAB [facility] Clear Clarity Clear LAB UGLUC Negative mg/dL Glucose, Urine Negative LAB UBIL Negative Bilirubin, Urine Negative LAB UKET Negative Ketones, Urine Negative LAB USPG 1.005-1.030 Specific [place], Ur 1.009 LAB UHGB Negative Hemoglobin/Blood, Negative Ur LAB UPH 4.5-8.0 pH 7.0 LAB UPROT Negative mg/dL Protein, Urine Negative LAB UUROB Normal Urobilinogen Normal LAB UNITR Negative Nitrites Negative LAB ULKEST Negative Leukest Abnormal 3+ Alert LAB UCOM Comments SEE COMMENT Result Comment: N/A LAB UMCOM Urine SEE Abrahan Comment COMMENT Result Comment: N/A LAB UWBC 0-5 /HPF Abnormal WBC Alert 6-10 LAB URBC 0-3 /HPF RBC 0-3 LAB UEPI /HPF Epithelial Cells SEE COMMENT Result Comment: Few Squamous Epithelial Cells Few Non-Squamous Epithelial Cells Performed By: #### UAWMIC #### [facility] [address] [address] Observed: 05/02/2017 Status: F Source: [place] URINE CULTURE 5:20 PM [facility] REPOSITORY Culture Result - 10,000 - <50,000 CFU/ml Normal urogenital emely Performed By: #### URCUL #### [facility] [address] [address] URGENT CARE VISIT Observed: 04/19/2017 Status: F Source: [place]OB[place] REPORT 5:19 PM [facility] REPOSITORY [address] [address] OFFICE VISIT Date of Service: 04/19/17 MR#: [id number] Acct: [id number] Name: PILY EMERY Rep #: [id number] : 1955 Provider: Alex SOLIS Age/Sex: 61/F Location[facility] Status: Signed Intake Vital Signs04/19/17 Height 5 ft 6 in Intake Visit Reasons: Urinary tract infection Is patient in pain?: No Allergies Penicillins Adverse Reaction (Verified 04/19/17 16:54) Other Medications Atenolol [Tenormin (beta chele)] 25 mg PO DAILY 07/25/13 [History Confirmed 04/19/17] Lactobacillus Acidophilus [Acidophilus] 1 ea PO DAILY 07/25/13 [History Confirmed 04/19/17] Oneco-3 Fatty Acids [Fish Oil] 500 mg PO DAILY 07/25/13 [History Confirmed 04/19/17] nitrofurantoin macrocrystal 100 mg capsule 100 mg PO Q12H 7 Days #14 cap 04/19/17 [Rx Confirmed 04/19/17] PFSH Medical History Arthritis (Acute) Cancer (Acute) Liver disease (Acute) Surgical History Total knee replacement status (Acute) Family History Mother Hypertension Father Leukemia Social History Smoking Status: Never smoker alcohol intake: never HPI Urinary tract infection: Chief Complaint: Dysuria Details: PILY EMERY, is a 61 F who presents to the office today for initial evaluation of dysuria and urinary frequency which is progressively worsening over the course of the last week. Patient notes over the last couple of days also feeling slightly warm as well as mild intermittent mid back pain. No complaints of chills or sweats or rash. No other associated symptoms and no other alleviating or aggravating factors. ROS Const Constitutional: No excessive sweating, abnormal sleep pattern, chills, fever(s), night sweats or body ache Eyes Eyes: No change in vision ENT ENT: No abnormal hearing Resp Respiratory: No cough or chest congestion Cardio Cardiology: No excessive sweating, chest pain at rest, chest pain with exertion, shortness of breath, dyspnea on exertion, irregular heart rhythm, generalized swelling or leg pain with exertion Gastro GI: No abdominal pain, change in stool character or change in bowel habits Genitourinary-Female: Positive for painful urination and urinary frequency; no difficulty urinating, burning urination, urinary incontinence, urinary urgency, urinary hesitancy, urinary retention or blood in urine Musc Musculoskeletal: Positive for back pain; no joint pain or limited range of motion Skin Skin: No change in hair or sores Neuro Neurology: No abnormal speech, abnormal movements or abnormal hearing Psych Psychiatric: No abnormal sleep pattern Endo Endocrine: No excessive sweating, change in body appearance, cold intolerance or heat intolerance Aller/Imm Allergy/Immunologic: No food intolerance Iglesia/Lymp Hematologic/Lymphatic: No easy bruising Exam Const General: cooperative, healthy appearing, no acute distress Nutritional Appearance: average body habitus Orientation: alert, awake, oriented x3 HENMT Head: normal to inspection Ears: hearing grossly normal bilaterally Nose: external nose normal Face and sinus: normal facial exam, face symmetric Eyes General: appearance normal, both eyes and all related structures Neck Neck: normal visual inspection, full ROM, no lymphadenopathy, no meningeal signs, supple Neck mass: No Thyroid: thyroid normal Lymphatic: no lymphadenopathy noted Chest Chest palpation AND inspection: normal inspection of the chest Resp Effort AND Inspection: normal respiratory effort, able to speak in complete sentences, symmetric chest movement Auscultation: Bilateral: Clear to Auscultation Cardio Palpation: normal PMI Rate: regular rate Rhythm: regular rhythm Heart Sounds: S1 normal, S2 normal, no gallops, no murmurs, no rubs Pulses: radial pulses present GI Inspection: normal to inspection Palpation: soft, no hepatosplenomegaly General: No CVA tenderness Skin General: no rashes or lesions noted Neuro General: alert, awake, oriented x3, gait normal Cognition: normal cognition Speech: speech normal Gait: normal gait Motor: muscle tone normal throughout Sensory Exam: no sensory deficits noted Extrem General: normal to inspection Psych Appearance: grossly normal Mental Status: mental status grossly normal Mood: congruent mood Affect: normal affect Speech and Movement: speech and movement normal Attitude: cooperative Thought Process: normal Thought Content: normal Judgment: judgment good Results BMSUA Office Urine Color Yellow Last Edit by Maria Eugenia Thorne on 04/19/17 16:58 Office Urine Clarity Clear Last Edit by Maria Eugenia Thorne on 04/19/17 16:58 Assessment AND Plan 1. Urinary tract infection N39.0 Plan Detail Other Orders Orders: Other Medications New: Additional Comments Macrobid as prescribed today. Appropriate hygiene care is reinforced today. Follow-up with PCP in 3-5 days should symptoms not improved, sooner should symptoms worsen or any other concerns develop. Patient states acknowledging understanding all the above. This note was generated with Chicfyation software. It may contain incorrect words, spelling, and punctuation that were not noted in checking the note before signing. Coding Level of Care Code Off vis,new,level 3 Diagnoses Urinary tract infection N39.0 04/19/17 1719 <Electronically signed by Alex SOLIS> Date Alex SOLIS Cosigner Signature: Date (if applicable) CC: ALLERGIES ALLERGIES DATE TYPE / CODE NAME / CODE REACTION SEVERITY SOURCE 04/19/2017 Drug Penicillins/[id number] Other Unknown [place] Allergy/416 0476(RXNORM) Community 359195(RUST) Repository 02/24/2005 Drug PENICILLINS [facility] Class/[address] [place] 1003([facility] CT) ENCOUNTERS ENCOUNTERS ADMIT/DISCHARGE ACCOUNT ADMITTING ENCOUNTER LOCATION SOURCE NUMBER CLASS 02/28/2018/02/29/[id number] Repository 02/28/2018/03/01/[id number] Repository 02/22/2018 [id number] [facility] ing:MTLAB Repository 01/12/2018/01/13/20 [id number] Ambulatory [address] Repository 01/12/2018/01/13/[id number] Repository 01/12/2018/01/16/[id number] Repository 10/26/2017/10/28/[id number] Repository 08/29/2017 [id number] [facility] ing:MTLAB Repository 08/29/2017/08/31/[id number] Repository 08/28/2017/08/29/[id number] Repository 05/02/2017/05/02/19 [id number] Ambulatory [address] Repository 04/19/2017/04/19/19 [id number] Ambulatory BMSBuilding:[facility] [place] [address]NOW [facility] Repository PAYERS PAYERS ENCOUNTER GUARANTOR PAYER SUBSCRIBER SOURCE 02/22/2018 PILY J Primary PILY Shirin [place] [id number] [place]AN[place] Insurance:ANTHEMPolic KEMPDOB: [facility] [place] y Number: [id number] Hospital [id number]: (330 [id number] Repository [phone] (HP) Date:[id number] [address] [place] [address] [place] [address]JV: 02/22/2018 Secondary NOT GIVENUNK Bobby Insurance:SELF PAY [facility] Number: Effective Repository Date:2018-02-22 08/29/2017 Pily J Primary Pily J [place] [id number] Insurance:ANTHEMPolic KempDOB: [facility] [place] y Number: [id number] Hospital [address]Nmw: (330 [id number] Repository [phone] () Date:6943-82-08WI [address] [place] [address] [place] [address]JW: 08/29/2017 Secondary NOT GIVENUNK Bobby Insurance:SELF PAY [facility] Number: Effective Repository Date:2017-08-29 04/19/2017 Pily J Primary Pily J [place] [id number] Insurance:ANTHEMPolic KempDOB: [facility] [place] y Number: [id number] Hospital [id number]: (330 [id number] Repository [phone] () Date:7210-04-16MM [address], [place] [address]LA: 04/19/2017 Secondary NOT GIVENUNK Bobby Insurance:SELF PAY [facility] Number: Effective Repository Date:2017-04-19
== END ==
PROVIDERS: Family Provider Family Medicine; PCP Family Medicine; Referring Provider Internal Medicine Rheumatology; Visit Provider Internal Medicine Rheumatology
DX: L40.59 Other psoriatic arthropathy (principal); L40.9 Psoriasis, unspecified; M21.40 Flat foot [pes planus] (acquired), unspecified foot; K76.0 Fatty (change of) liver, not elsewhere classified; L71.9 Rosacea, unspecified; Z85.3 Personal history of malignant neoplasm of breast
CPT/HCPCS: 36415; 80053; 85025

== ENCOUNTER → 2018-03-23 14:20 | Outpatient (CLI) | payer BC, SELFPAY ==
[2018-03-22 16:31] VITALS: BMI 37.9
== END ==
PROVIDERS: Family Provider Family Medicine; PCP Family Medicine; Referring Provider Physician Assistant; Visit Provider Physician Assistant
DX: J02.9 Acute pharyngitis, unspecified (principal)
CPT/HCPCS: 87081

== ENCOUNTER → 2018-04-03 14:27 | Outpatient (CLI) | payer BC, SELFPAY ==
[2018-04-03 13:17] VITALS: BMI 37.9
[2018-04-03 14:57] LABS: Bacteria 0 SEEN /hpf (None Seen); Mucous, Urine 0 SEEN /hpf (<or=2+); Red Blood Cells-Urine 0 SEEN /hpf (0-5)
[2018-04-03 15:30] LABS: Color, Urine Yellow (Yellow); Glucose, Dipstick Normal (Normal); Ketone-Dipstick Negative (Negative); Leukocyte Esterase-Dipstick 25 /ul (Negative); Nitrite-Dipstick Negative (Negative); Occult Blood-Urine Negative /ul (Negative); Protein-Dipstick Negative (Negative); Specific Gravity, Urine 1.015 (1.002-1.030); Urine Bilirubin Dipstick Negative (Negative); Urine Clarity Clear (Clear); Urine Urobilinogen Normal (Normal)
[2018-04-03 16:15] LABS: Squamous Epithelial Cells - UA 0-5 SEEN /hpf (5-10); White Blood Cells 0-5 SEEN /hpf (0-5)
== END ==
PROVIDERS: Family Provider Family Medicine; PCP Family Medicine; Referring Provider Physician Assistant; Visit Provider Physician Assistant
DX: J02.9 Acute pharyngitis, unspecified (principal)
CPT/HCPCS: 81001; 87086; 87088

== ENCOUNTER → 2018-08-17 11:34 | Outpatient (CLI) | payer BC, SELFPAY ==
[2018-05-03 15:18] VITALS: BMI 37.9
[2018-08-17 12:44] LABS: Absolute Lymphocyte Count 1.19 X10^3/ul (0.83-4.51); Absolute Neutrophil Count 2.3 X10^3/uL (2.0-7.7); Basophil# 0.02 X10^3/uL; Basophil% 0.5 % (0-1); Eosinophil# 0.09 X10^3/uL; Eosinophils% 2.3 % (0-5); Hematocrit 39.1 % (37-47); Hemoglobin 12.9 g/dl (12.0-15.0); Lymphocyte # 1.19 X10^3/ul (4.0); Lymphocyte % 30.4 % (19-41); Mean Corpuscular Hgb 28.7 pg (27.0-32.0); Mean Corpuscular Volume 86.9 fL (81-99); Mean Platelet Vol. 9.5 fl (6.2-12.0); Monocyte# 0.28 X10^3/uL; Monocyte% 7.2 % (0-10); Neutrophil # 2.33 X10^3/uL (2.7-7.7); Neutrophil % 59.6 % (47-70); Platelet Count 162 K/mm3 (150-450); RBC Distribution Width CV 13.3 % (11.6-14.6); RBC Distribution Width SD 42.4 fl (35.1-43.9); White Blood Count 3.9 K/mm3 (4.4-11.0)
[2018-08-17 12:50] LABS: POSITIVE COUNT NO; POSITIVE DIFFERENTIAL NO; POSITIVE MORPHOLOGY NO
[2018-08-17 13:18] LABS: ALB/GLOB Ratio 1.1 RATIO (0.9-2.4); AST(SGOT) 29 U/L (15-37); Alanine Aminotransfer ALT/SGPT 32 U/L (13-56); Albumin, Serum 3.6 g/dL (3.2-5.0); Alkaline Phosphatase 73 U/L (45-117); Anion Gap 7 (5-15); BUN 15 mg/dL (7-18); BUN/Creat Ratio 16.3 RATIO (10-20); Calcium,Total 9.4 mg/dL (8.5-10.1); Chloride 108 mmol/L (98-107); Creatinine, Serum 0.92 mg/dL (0.55-1.02); EST Glomerular Filtration Rate 65 mL/min (>60); Est Glom Filt Rate - Afr Amer 79 mL/min (>60); Globulin 3.4 g/dL (2.2-4.2); Glucose 103 mg/dL (74-106); Potassium 4.2 mmol/L (3.5-5.1); Sodium Level 141 mmol/L (136-145)
== END ==
PROVIDERS: Family Provider Family Medicine; PCP Family Medicine; Referring Provider Internal Medicine Rheumatology; Visit Provider Internal Medicine Rheumatology
DX: L40.59 Other psoriatic arthropathy (principal); M15.9 Polyosteoarthritis, unspecified; M21.40 Flat foot [pes planus] (acquired), unspecified foot; K76.0 Fatty (change of) liver, not elsewhere classified; L71.9 Rosacea, unspecified; Z85.3 Personal history of malignant neoplasm of breast
CPT/HCPCS: 36415; 80053; 85025

== ENCOUNTER 2018-11-12 10:03 | Emergency (ER) | payer BC, SELFPAY ==
[2018-05-03 15:18] VITALS: BMI 37.9
[2018-11-12 10:04] VITALS: BP 128/73; PULSE 69; RESP 16; TEMP 36.3; O2SAT 97; BMI 34.5
--- NOTE | 2018-11-12 10:17 | EKG12_ITS ---
Test Reason : PALPATIONS Blood Pressure : / mmHG Vent. Rate : 076 BPM Atrial Rate : 326 BPM P-R Int : 000 ms QRS Dur : 092 ms QT Int : 374 ms P-R-T Axes : 000 042 027 degrees QTc Int : 420 ms Atrial fibrillation Abnormal ECG Confirmed by JESUS MURRIETA, MAREK ([id number]), associate editor KAUR RAYO ([id number]) on 11/13/2018 1:42:28 PM Referred By: EDWIN Confirmed By:MAREK LEE MD
--- NOTE | 2018-11-12 10:20 | RAD_ITS ---
STUDY: X-RAY CHEST REASON FOR EXAM: Female, 63 years old. Palpitations. TECHNIQUE: Single AP portable view of the chest. COMPARISON: June 26, 2012. FINDINGS: Cardiac silhouette unremarkable. Pulmonary vascularity unremarkable. Aorta unremarkable. No focal patchy airspace opacities. No pleural effusions. Upper abdomen unremarkable. Osseous structures intact. No pneumothorax. RAD/Chest 1 View (Portable) IMPRESSION: No acute cardiopulmonary findings Electronically Signed: Allan Ventura DO at 10:41 EDT Tel , Service support ,
[2018-11-12] MEDS: 0.9% Normal Saline 1,000 ML 150 ML IV (10:43)
[2018-11-12 10:52] LABS: Absolute Lymphocyte Count 1.55 X10^3/uL (0.83-4.51); Absolute Neutrophil Count 3.3 X10^3/uL (2.0-7.7); Basophil# 0.04 X10^3/uL; Basophil% 0.7 % (0-1); Eosinophil# 0.09 X10^3/uL; Eosinophils% 1.7 % (0-5); Hematocrit 40.7 % (37-47); Hemoglobin 13.7 g/dL (12.0-15.0); Lymphocyte # 1.55 X10^3/ul (4.0); Lymphocyte % 28.5 % (19-41); Mean Corp Hgb Conc 33.7 g/dL (32-36); Mean Corpuscular Hgb 29.9 pg (27.0-32.0); Mean Corpuscular Volume 88.9 fL (81-99); Monocyte# 0.41 X10^3/uL; Monocyte% 7.6 % (0-10); NRBC Flagged by Analyzer 0 % (0-5); Neutrophil # 3.32 X10^3/uL (2.7-7.7); Neutrophil % 61.1 % (47-70); Platelet Count 163 K/mm3 (150-450); RBC Distribution Width CV 12.6 % (11.6-14.6); RBC Distribution Width SD 41.1 fl (35.1-43.9); Red Blood Count 4.58 M/mm3 (4.2-5.4); White Blood Count 5.4 K/mm3 (4.4-11.0)
[2018-11-12 10:53] VITALS: BP 122/69; PULSE 63; RESP 18; O2SAT 98
[2018-11-12 11:04] VITALS: BP 125/71; PULSE 56; RESP 12; O2SAT 99
[2018-11-12 11:14] LABS: Anion Gap 3 (5-15); BUN 14 mg/dL (7-18); BUN/Creat Ratio 14.8 RATIO (10-20); Calcium,Total 9.5 mg/dL (8.5-10.1); Chloride 110 mmol/L (98-107); Creatinine, Serum 0.94 mg/dL (0.55-1.02); EST Glomerular Filtration Rate 63 mL/min (>60); Est Glom Filt Rate - Afr Amer 76 mL/min (>60); Estimated Creatinine Clearance 55.86 ml/min; Glucose 82 mg/dL (74-106); Potassium 3.9 mmol/L (3.5-5.1); Sodium Level 142 mmol/L (136-145); Thyroid Stim Hormone (TSH) 1.16 uIU/mL (0.358-3.74)
[2018-11-12 11:48] VITALS: BP 122/74; PULSE 60; RESP 19; O2SAT 100
--- NOTE | 2018-11-12 12:00 | ED.VISSUMM ---
- ER Visit Summary Date of Service: 11/12/18 Chief Complaint: [Palpitations and tachycardia] History of Present Illness: The patient is a 63 F [presents to the emergency department palpitations and tachycardia that started last evening around 9 PM. Patient denies any chest pain. She does describe just minimal shortness of breath. Patient did travel in August to [place] and [place] via car. Patient does have history of palpitations and takes daily atenolol but has never been diagnosed with atrial fibrillation. Patient has no thyroid issues. Her primary care physician is Dr. Micheal Ulrich III who referred her to the emergency department today.] Physical Examination: [HEENT-PERRLA, EOMI. Cranial nerves II through XII grossly intact. TMs clear. Mucous membranes moist. No adenopathy. Cardiovascular-irregular with heart rate in the 70s. No murmurs auscultated. Lungs-clear to auscultation, chest wall stable without crepitus or subcu emphysema Abdomen-normoactive bowel sounds, soft, nontender, no rebound or rigidity, no peritoneal signs. Extremities-intact ?4, normal range of motion, normal pulses, atraumatic] Test Results: [EKG obtained on arrival showed atrial fibrillation with a ventricular rate of 76 bpm. No acute segment changes noted. CBC with differential is normal. Chemistries were normal. TSH was 1.16. Troponin is less than 0.15. And chest x-ray showed nothing acute.] Emergency Department Course and Treatment: [Case was discussed with decorating machine operator on-call Dr. Aly Paz who asked that patient continue with her atenolol and his office will call her for an outpatient follow-up visit. He did not feel anticoagulation was indicated at this time.] Treatment Plan: [Follow-up with cardiology as an outpatient and continue with atenolol] Disposition: [Discharged home in stable condition] Impression: [Atrial fibrillation] This note was generated with [employer] dictation software. It may contain incorrect words, spelling, and punctuation that were not noted in review of the chart prior to signing ED Disposition - Plan for ED Patient: Referrals: Micheal Ulrich III, MD [Primary Care Provider] -
--- NOTE | 2018-11-12 12:03 | ED.DEP ---
ED Disposition - Plan for ED Patient: Instructions: Atrial Fibrillation Referrals: Micheal Ulrich III, MD [Primary Care Provider] - Aly Paz MD [STAFF PHYSICIAN] - 3-5 Days
[2018-11-12 12:23] VITALS: BP 123/76; PULSE 64; RESP 19; O2SAT 100
== END 2018-11-12 12:27 | disposition home or self-care (01) ==
PROVIDERS: Emergency Provider Emergency Medicine; Family Provider Family Medicine; PCP Family Medicine
DX: I48.91 Unspecified atrial fibrillation (principal); Z79.899 Other long term (current) drug therapy
CPT/HCPCS: 71045; 80048; 84443; 84484; 85025; 93005; 96360; 96361; 99284; J7030; A4216

== ENCOUNTER → 2018-12-02 14:10 | Outpatient (CLI) | payer BC, SELFPAY ==
[2018-12-02 13:03] VITALS: BMI 35.2
[2018-12-02 14:14] LABS: Bacteria 0 SEEN /hpf (None Seen); Mucous, Urine 0 SEEN /hpf (<or=2+); Red Blood Cells-Urine 0 SEEN /hpf (0-5); White Blood Cells 0 SEEN /hpf (0-5)
[2018-12-02 14:53] LABS: Color, Urine Yellow (Yellow); Glucose, Dipstick Normal (Normal); Ketone-Dipstick Negative (Negative); Leukocyte Esterase-Dipstick Negative /ul (Negative); Nitrite-Dipstick Negative (Negative); Occult Blood-Urine Negative /ul (Negative); Protein-Dipstick Negative (Negative); Urine Bilirubin Dipstick Negative (Negative); Urine Clarity Clear (Clear); Urine Urobilinogen Normal (Normal)
[2018-12-02 15:01] LABS: Squamous Epithelial Cells - UA 0-5 SEEN /hpf (5-10)
== END ==
PROVIDERS: Family Provider Family Medicine; PCP Family Medicine; Referring Provider Physician Assistant; Visit Provider Physician Assistant
DX: R30.0 Dysuria (principal)
CPT/HCPCS: 81001; 87086; 87088

== ENCOUNTER → 2018-12-05 09:50 | Outpatient (CLI) | payer BC, SELFPAY ==
[2018-11-13 13:15] VITALS: BMI 35.2
[2018-12-02 13:03] VITALS: BMI 35.2
--- NOTE | 2018-12-05 09:52 | ECHODONC_ITS ---
Reason For Study: AFIB/FLUTTER Procedure This was a 2D Doppler, Color Flow transthoracic echocardiogram. Myocardial strain analysis was performed in this exam to aid in the assessment of cardiac function. Exam performed in department. Left Ventricle Normal LV size. Left ventricular systolic function is normal. The estimated ejection fraction is 60 %. Normal diastology for age. No regional wall motion abnormalities noted. Right Ventricle Normal RV size. Normal systolic function. Atria The left atrium is mildly enlarged. Normal right atrium. Mitral Valve Bileaflet diffuse mitral valve thickening. Tricuspid Valve Normal tricuspid valve. Aortic Valve Trisinus/trileaflet aortic valve. Pulmonic Valve Normal pulmonic valve. Great Vessels Normal aortic root. The pulmonary artery is normal size. Normal inferior vena cava. Pericardium/Pleural No pericardial effusion. MMode/2D Measurements & Calculations LVIDd: 4.4 cm IVSd: 1.0 cm Ao root diam: 2.8 cm LVIDs: 2.6 cm LVPWd: 1.0 cm RVDd: 3.0 cm FS: 40.3 % LAV(MOD-bp): 59.9 ml LA A4 area: 20.3 cm2 LA dimension(2D): 4.0 cm LAV(MOD-bp) Indexed: 29.0 ml/m2 LAV(MOD-sp2): 53.7 ml LAV(MOD-sp4): 65.9 ml RA A4 area: 13.4 cm2 Time Measurements MV dec time: 0.17 sec Doppler Measurements & Calculations MV E max marvin: 105.1 cm/sec Lat Peak E' Marvin: 10.0 cm/sec Med Peak E' Marvin: 10.4 cm/sec MV A max marvin: 82.3 cm/sec E/E' lat: 10.5 E/E' med: 10.1 MV E/A: 1.3 Ao V2 max: 153.7 cm/sec LV V1 max: 140.1 cm/sec PA V2 max: 112.6 cm/sec Ao max P.5 mmHg LV V1 max P.9 mmHg TR max marvin: 231.9 cm/sec TR max P.5 mmHg Interpretation Summary Normal LV size. Left ventricular systolic function is normal. The estimated ejection fraction is 60 %. Normal diastology for age. The global longitudinal strain is normal. The global longitudinal strain = -20.5 % (normal). Ordering Physician: Aly Paz Referring Physician: Aly Paz Performed By: Ct Anders RDCS, RVT
--- NOTE | 2018-12-05 17:35 | STRESSREP ---
Stress Test Report Exercise stress test. 63-year-old lady with a history of atrial fibrillation flutter. Medications Eliquis, atenolol, prednisone. Resting EKG demonstrates normal sinus rhythm with a rate of 63 bpm normal intervals are noted resting blood pressures 118/78 mmHg. The patient exercised according to regular Dillon protocol for total duration of 4 minutes and 27 seconds. The maximum heart rate attained was 136 bpm which was 87% of maximum predicted heart rate the maximum workload was 6.3 metabolic equivalents. At rest there were no ST or T wave changes noted suggest ischemia at peak exercise upsloping ST changes only were noted with no meet the criteria for ischemia. No clinical angina was noted no arrhythmias were noted no atrial fibrillation was noted the test was terminated due to leg fatigue. Conclusion: Exercise stress test with no EKG criteria for ischemia at a moderate workload. No arrhythmias noted. Mild functional aerobic impairment.
== END ==
PROVIDERS: Family Provider Family Medicine; PCP Family Medicine; Referring Provider Internal Medicine Cardiovascular Disease; Visit Provider Internal Medicine Cardiovascular Disease
DX: I25.10 Atherosclerotic heart disease of native coronary artery without angina pectoris (principal); I48.0 Paroxysmal atrial fibrillation
CPT/HCPCS: 0399T; 93017; 93306

== ENCOUNTER → 2019-01-22 12:25 | Outpatient (CLI) | payer BC, SELFPAY ==
[2018-12-02 13:03] VITALS: BMI 35.2
[2019-01-22 13:46] LABS: Absolute Lymphocyte Count 1.16 X10^3/uL (0.83-4.51); Basophil# 0.06 X10^3/uL; Basophil% 1.2 % (0-1); Eosinophil# 0.31 X10^3/uL; Eosinophils% 6.2 % (0-5); Hematocrit 37.6 % (37-47); Hemoglobin 12.3 g/dL (12.0-15.0); Lymphocyte # 1.16 X10^3/ul (4.0); Lymphocyte % 23.3 % (19-41); Mean Corp Hgb Conc 32.7 g/dL (32-36); Mean Corpuscular Hgb 28.9 pg (27.0-32.0); Mean Corpuscular Volume 88.3 fL (81-99); Mean Platelet Vol. 9.4 fl (6.2-12.0); Monocyte# 0.45 X10^3/uL; Monocyte% 9.1 % (0-10); NRBC Flagged by Analyzer 0 % (0-5); Neutrophil # 2.98 X10^3/uL (2.7-7.7); Platelet Count 156 K/mm3 (150-450); RBC Distribution Width SD 41.9 fl (35.1-43.9); Red Blood Count 4.26 M/mm3 (4.2-5.4)
[2019-01-22 13:58] LABS: AST(SGOT) 23 U/L (15-37); Alanine Aminotransfer ALT/SGPT 24 U/L (13-56); Albumin, Serum 3.7 g/dL (3.2-5.0); Alkaline Phosphatase 76 U/L (45-117); Anion Gap 7 (5-15); BUN 15 mg/dL (7-18); BUN/Creat Ratio 19.7 RATIO (10-20); Calcium,Total 9.3 mg/dL (8.5-10.1); Chloride 105 mmol/L (98-107); Creatinine, Serum 0.76 mg/dL (0.55-1.02); EST Glomerular Filtration Rate 81 mL/min (>60); Est Glom Filt Rate - Afr Amer 98 mL/min (>60); Globulin 3.6 g/dL (2.2-4.2); Glucose 77 mg/dL (74-106); Potassium 4.1 mmol/L (3.5-5.1); Protein, Total 7.3 g/dL (6.4-8.2); Sodium Level 140 mmol/L (136-145)
== END ==
PROVIDERS: Family Provider Family Medicine; PCP Family Medicine; Referring Provider Internal Medicine Rheumatology; Visit Provider Internal Medicine Rheumatology
DX: L40.59 Other psoriatic arthropathy (principal); L40.9 Psoriasis, unspecified; M15.9 Polyosteoarthritis, unspecified; M21.40 Flat foot [pes planus] (acquired), unspecified foot; K76.0 Fatty (change of) liver, not elsewhere classified; L71.9 Rosacea, unspecified; Z85.3 Personal history of malignant neoplasm of breast
CPT/HCPCS: 36415; 80053; 85025

== ENCOUNTER → 2019-03-21 14:36 | Outpatient (CLI) | payer BC, SELFPAY ==
[2019-03-21 12:12] VITALS: BMI 34.2
== END ==
PROVIDERS: Family Provider Family Medicine; PCP Family Medicine; Referring Provider Physician Assistant; Visit Provider Physician Assistant
DX: J02.9 Acute pharyngitis, unspecified (principal)
CPT/HCPCS: 87070; 87077

== ENCOUNTER 2019-03-29 15:30 | Outpatient (RCR) | payer BC, SELFPAY ==
[2018-12-02 13:03] VITALS: BMI 35.2
--- NOTE | 2019-02-27 16:41 | HP.PTEVAL ---
Patient's Visit Information DAYNE LYNN is a 63 year old F referred to Physical Therapy by Micheal Ulrich III, MD with a diagnosis of CERVICAL ARTHRITIS. Date of Evaluation: 02/27/19 Physical Therapist: Rc Wilhelm, PT, Cert MDT, OCS - Visit Plan Frequency: 2x /Week Duration: 4 Weeks Plan: PT INTERVENTIONS WITH MANUAL THERAPY -CERVICAL TRACTION/STM,US /MHP,CERVICAL POSTURAL EX'S - Subjective Findings: This 63 y/o female presents to physical therapy with cervical pain. Patient has cervical pain affects UE for many years which has progressivelly worse past 2 months with symptoms in to elbows,especially at night . Patient tried massage therapy. Patient goal is to learn stretches and decrease pain. Seen Dr elisha taylor. Patient also has arthritic pain hands elbow.Patient symptoms located UT trap region cervical spine scapular . Aggravating factors sleeping ,looking up,sitting at computer,turning cervical spine reading,carrying object. Allevating factors heat,rest. C/O DOTSON. Denies dizziness,tinutus. Coughing/sneezing-. Pain affects job demnads,housework tasks ADLS ,job demands. Patient symptoms affects QOL . SOCAIL: . 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 PALPATION: tender UT/levator. NEURO: c/o parathesia/tingling,reflexes C5-6-7/ 1/3. AROM: BUE AROM WFL. MMT: 4/5 except 4-/5 shoulders with pain - Special Tests C/S Radiculapathy - Left Upper limb tension test: Negative C/S Radiculapathy - Right Upper limb tension test: Negative C/S Radiculapathy - Left Spurlings: Positive C/S Radiculapathy - Right Spurlings: Positive C/S Radiculapathy - Left Cervical distraction: Negative C/S Radiculapathy - Left Relief test: Negative C/S Radiculapathy - Right Relief test: Negative Sharp [place]: Negative Vertebral Artery Test: Negative Alar Ligament Test: Negative Cervical Sitting: Protrusion - Mechanical Response: No effect Cervical Sitting: Protrusion - Symptoms During Testing: No effect Cervical Sitting: Protrusion - Symptoms After Testing: No effect Cervical Sitting: Retraction - Mechanical Response: No effect Cervical Sitting: Retraction - Symptoms During Testing: No effect Cervical Sitting: Retraction - Symptoms After Testing: No effect Cervical Sitting: Retraction-Extension - Mechanical Response: No effect Cerv Sitting: Retraction-Extension - Symptoms During Testing: Increases Cerv Sitting: Retraction-Extension - Symptoms After Testing: Worse Cervical Sitting: Sidebend Right - Mechanical Response: No effect Cervical Sitting: Sidebend Right - Symptoms During Testing: Increases Cervical Sitting: Sidebend Right - Symptoms After Testing: No worse Cervical Sitting: Sidebend Left - Mechanical Response: No effect Cervical Sitting: Sidebend Left - Symptoms During Testing: Increases Cervical Sitting: Sidebend Left - Symptoms After Testing: Worse Cervical Sitting: Rotation Right - Mechanical Response: No effect Cervical Sitting: Rotation Right - Symptoms During Testing: Increases Cervical Sitting: Rotation Right - Symptoms After Testing: No worse Cervical Sitting: Rotation Left - Mechanical Response: No effect Cervical Sitting: Rotation Left - Symptoms During Testing: Increases Cervical Sitting: Rotation Left - Symptoms After Testing: Worse Cervical Sitting: Flexion - Mechanical Response: No effect Cervical Sitting: Flexion - Symptoms During Testing: Increases Cervical Sitting: Flexion - Symptoms After Testing: No worse - Goals Goal 1:: Patient to be Independant with HEP Goal Time Frame: 4-6 Weeks Goal 2:: Patient to improve posture for ADL'S Goal Time Frame: 4-6 Weeks Goal 3:: Patient to decrease cervical radiculopathy by 50% or> to improve function. Goal Time Frame: 4-6 Weeks Goal 4:: Patient to increase cervical ROM for function of rfecovery Goal Time Frame: 4-6 Weeks Goal 5:: Patient improve cervical dash by 5 points or> to improve QOL. Goal Time Frame: 4-6 Weeks - Rehabilitation Potential Physical Therapy Diagnosis: This patient has cervical radiculopaty with pain cervical ,scapular occassionally arms with .decrease posture,cervical ROM + response with manual traction,thus impairs ADLS'a and function Rehabilitation Potential: Good - Anticipated Interventions Patient/Client Instruction: Educate patient on: Condition, Plan of Care For the Purpose of:: To decrease pain, To increase ROM, To increase oxygenation perfusion, To improve ability to perform ADL's, To increase tolerance to activity/condition/position, To improve ability of physical actions for home/community/work/leisure, To improve health of tissue, To decrease soft tissue restriction, To increase flexibility/ROM, To reduce risk of recurrence, To improve ability to perform tasks related to life management Therapeutic Exercise to Include: Strength training, Postural training, Flexibilty training For the Purpose of:: To decrease pain, To increase ROM, To improve muscle performance and motor function, To improve ability to perform ADL's, To increase tolerance to activity/condition/position, To improve ability of physical actions for home/community/work/leisure, To improve health of tissue, To decrease soft tissue restriction, To increase flexibility/ROM, To improve ability to perform tasks related to life management Manual Therapy Techniques to Include: Mobilization, Soft tissue mobilization Comment: CERVICAL TRACTION For the Purpose of:: To decrease pain, To increase ROM, To improve nutrient delivery to tissue, To increase oxygenation perfusion, To improve health of tissue, To decrease soft tissue restriction, To increase flexibility/ROM TENS: Yes IF ES: Yes Cryotherapy (ice pack, ice massage): Yes Thermo therapy (hot pack): Yes Ultrasound (thermal/non thermal): Yes For the Purpose of:: To decrease pain, To increase ROM, To improve nutrient delivery to tissue, To increase oxygenation perfusion, To improve health of tissue, To decrease soft tissue restriction Thank you for the opportunity to evaluate your patient. For Medicare and Medicare HMO plans, please review the plan of care and approve it. It will need to be FAXED BACK to us at [phone] for Medicare purposes. For Medicare only, by signing this I certify the plan of care. Please let me know if there are questions or concerns regarding this plan of care. Physician Signature: Date:
--- NOTE | 2019-02-27 16:45 | HP.PTEVAL_ITS ---
Patient's Visit Information DAYNE LYNN is a 63 year old F referred to Physical Therapy by Micheal Ulrich III, MD with a diagnosis of CERVICAL ARTHRITIS. Date of Evaluation: 02/27/19 Physical Therapist: Rc Wilhelm, PT, Cert MDT, OCS - Visit Plan Frequency: 2x /Week Duration: 4 Weeks Plan: PT INTERVENTIONS WITH MANUAL THERAPY -CERVICAL TRACTION/STM,US /MHP,CERVICAL POSTURAL EX'S - Subjective Findings: This 63 y/o female presents to physical therapy with cervical pain. Patient has cervical pain affects UE for many years which has progressivelly worse past 2 months with symptoms in to elbows,especially at night . Patient tried massage therapy. Patient goal is to learn stretches and decrease pain. Seen Dr elisha taylor. Patient also has arthritic pain hands elbow.Patient symptoms located UT trap region cervical spine scapular . Aggravating factors sleeping ,looking up,sitting at computer,turning cervical spine reading,carrying object. Allevating factors heat,rest. C/O DOTSON. Denies dizziness,tinutus. Coughing/sneezing-. Pain affects job demnads,housework tasks ADLS ,job demands. Patient symptoms affects QOL . SOCAIL: . 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 PALPATION: tender UT/levator. NEURO: c/o parathesia/tingling,reflexes C5-6-7/ 1/3. AROM: BUE AROM WFL. MMT: 4/5 except 4-/5 shoulders with pain. CERVICAL ROM: flexion min loss,retraction min loss,extension mod loss pain,cervical rotation /lateral flexion mod loss pain on left side, - Special Tests C/S Radiculapathy - Left Upper limb tension test: Negative C/S Radiculapathy - Right Upper limb tension test: Negative C/S Radiculapathy - Left Spurlings: Positive C/S Radiculapathy - Right Spurlings: Positive C/S Radiculapathy - Left Cervical distraction: Negative C/S Radiculapathy - Left Relief test: Negative C/S Radiculapathy - Right Relief test: Negative Sharp [place]: Negative Vertebral Artery Test: Negative Alar Ligament Test: Negative Cervical Sitting: Protrusion - Mechanical Response: No effect Cervical Sitting: Protrusion - Symptoms During Testing: No effect Cervical Sitting: Protrusion - Symptoms After Testing: No effect Cervical Sitting: Retraction - Mechanical Response: No effect Cervical Sitting: Retraction - Symptoms During Testing: No effect Cervical Sitting: Retraction - Symptoms After Testing: No effect Cervical Sitting: Retraction-Extension - Mechanical Response: No effect Cerv Sitting: Retraction-Extension - Symptoms During Testing: Increases Cerv Sitting: Retraction-Extension - Symptoms After Testing: Worse Cervical Sitting: Sidebend Right - Mechanical Response: No effect Cervical Sitting: Sidebend Right - Symptoms During Testing: Increases Cervical Sitting: Sidebend Right - Symptoms After Testing: No worse Cervical Sitting: Sidebend Left - Mechanical Response: No effect Cervical Sitting: Sidebend Left - Symptoms During Testing: Increases Cervical Sitting: Sidebend Left - Symptoms After Testing: Worse Cervical Sitting: Rotation Right - Mechanical Response: No effect Cervical Sitting: Rotation Right - Symptoms During Testing: Increases Cervical Sitting: Rotation Right - Symptoms After Testing: No worse Cervical Sitting: Rotation Left - Mechanical Response: No effect Cervical Sitting: Rotation Left - Symptoms During Testing: Increases Cervical Sitting: Rotation Left - Symptoms After Testing: Worse Cervical Sitting: Flexion - Mechanical Response: No effect Cervical Sitting: Flexion - Symptoms During Testing: Increases Cervical Sitting: Flexion - Symptoms After Testing: No worse - Goals Goal 1:: Patient to be Independant with HEP Goal Time Frame: 4-6 Weeks Goal 2:: Patient to improve posture for ADL'S Goal Time Frame: 4-6 Weeks Goal 3:: Patient to decrease cervical radiculopathy by 50% or> to improve function. Goal Time Frame: 4-6 Weeks Goal 4:: Patient to increase cervical ROM for function of rfecovery Goal Time Frame: 4-6 Weeks Goal 5:: Patient improve cervical dash by 5 points or> to improve QOL. Goal Time Frame: 4-6 Weeks - Rehabilitation Potential Physical Therapy Diagnosis: This patient has cervical radiculopaty with pain cervical ,scapular occassionally arms with .decrease posture,cervical ROM + response with manual traction,thus impairs ADLS'a and function Rehabilitation Potential: Good - Anticipated Interventions Patient/Client Instruction: Educate patient on: Condition, Plan of Care For the Purpose of:: To decrease pain, To increase ROM, To increase oxygenation perfusion, To improve ability to perform ADL's, To increase tolerance to activ ity/condition/position, To improve ability of physical actions for home/community/work/leisure, To improve health of tissue, To decrease soft tissue restriction, To increase flexibility/ROM, To reduce risk of recurrence, To improve ability to perform tasks related to life management Therapeutic Exercise to Include: Strength training, Postural training, Flexibilty training For the Purpose of:: To decrease pain, To increase ROM, To improve muscle performance and motor function, To improve ability to perform ADL's, To increase tolerance to activity/condition/position, To improve ability of physical actions for home/community/work/leisure, To improve health of tissue, To decrease soft tissue restriction, To increase flexibility/ROM, To improve ability to perform tasks related to life management Manual Therapy Techniques to Include: Mobilization, Soft tissue mobilization Comment: CERVICAL TRACTION For the Purpose of:: To decrease pain, To increase ROM, To improve nutrient delivery to tissue, To increase oxygenation perfusion, To improve health of tissue, To decrease soft tissue restriction, To increase flexibility/ROM TENS: Yes IF ES: Yes Cryotherapy (ice pack, ice massage): Yes Thermo therapy (hot pack): Yes Ultrasound (thermal/non thermal): Yes For the Purpose of:: To decrease pain, To increase ROM, To improve nutrient delivery to tissue, To increase oxygenation perfusion, To improve health of tissue, To decrease soft tissue restriction Thank you for the opportunity to evaluate your patient. For Medicare and Medicare HMO plans, please review the plan of care and approve it. It will need to be FAXED BACK to us at [phone] for Medicare purposes. For Medicare only, by signing this I certify the plan of care. Please let me know if there are questions or concerns regarding this plan of care. Physician Signature: Date:
--- NOTE | 2019-03-29 16:05 | HP.PTDCSUM ---
HP - PT D/C Summary It has been my pleasure to treat DAYNE LYNN under orders from Micheal Ulrich III, MD, for the diagnosis of CERVICAL ARTHRITIS for a total of 6 visit(s). Discharge Date: 03/29/19 Please see the following information for a summary of their discharge status. - Subjective Subjective: Doing alot better .. PT helped to reduce cervical pain. Although left elbow is more sore tender . - Pain Bilateral Neck Pain Intensity (Out of 10): 0 - Overall Improvement % Improvement: 30 - Objective Objective/Function: POSTURE: MILD FOWARD POSTURE. PALPATION: LEVATOR /UT left elbow lateral epicondle,. CERVICAL ROM: WFL. MMT: 4/5 grossly left wrist ext + for tendonitis - Goals Goal 1:: Patient to be Independant with HEP Goal Progress: Goal Met Goal 2:: Patient to improve posture for ADL'S Goal Progress: Goal Met Goal 3:: Patient to decrease cervical radiculopathy by 50% or> to improve function. Goal Progress: Goal Met Goal 4:: Patient to increase cervical ROM for function of rfecovery Goal Progress: Goal Met Goal 5:: Patient improve cervical dash by 5 points or> to improve QOL. Goal Progress: Goal Met - Plan Plan: D/C TO HEP - D/C Information Discharge Comments: + SIGNS FOR LEFT ELBOW TENDONITIS If there are questions or concerns regarding this patient's physical therapy, please feel free to call me at [phone]. Thank you for the referral of this patient. Sincerely, Rc Wilhelm, PT, Cert MDT, OCS
== END 2019-03-29 19:00 | disposition home or self-care (01) ==
LOC: PT 15:30
PROVIDERS: Family Provider Family Medicine; PCP Family Medicine; Referring Provider Family Medicine; Visit Provider Family Medicine
DX: M46.82 Other specified inflammatory spondylopathies, cervical region (principal)
CPT/HCPCS: 97014; 97035; 97110; 97140; 97161; 97530; G0283

== ENCOUNTER → 2019-07-30 16:26 | Outpatient (CLI) | payer BC, SELFPAY ==
[2019-07-17 13:21] VITALS: BMI 35.8
[2019-07-30 17:49] LABS: Absolute Lymphocyte Count 1.34 X10^3/uL (0.83-4.51); Absolute Neutrophil Count 3.2 X10^3/uL (2.0-7.7); Basophil# 0.05 X10^3/uL; Basophil% 0.9 % (0-1); Eosinophil# 0.33 X10^3/uL; Eosinophils% 6.2 % (0-5); Hematocrit 40.3 % (37-47); Hemoglobin 12.9 g/dL (12.0-15.0); Lymphocyte # 1.34 X10^3/ul (4.0); Lymphocyte % 25.3 % (19-41); Mean Corpuscular Hgb 28.2 pg (27.0-32.0); Mean Corpuscular Volume 88.2 fL (81-99); Mean Platelet Vol. 9.3 fl (6.2-12.0); Monocyte# 0.36 X10^3/uL; Monocyte% 6.8 % (0-10); NRBC Flagged by Analyzer 0 % (0-5); Neutrophil % 60.4 % (47-70); Platelet Count 158 K/mm3 (150-450); RBC Distribution Width SD 42.2 fl (35.1-43.9); Red Blood Count 4.57 M/mm3 (4.2-5.4); White Blood Count 5.3 K/mm3 (4.4-11.0)
[2019-07-30 18:05] LABS: AST(SGOT) 23 U/L (15-37); Alanine Aminotransfer ALT/SGPT 24 U/L (13-56); Albumin, Serum 3.7 g/dL (3.2-5.0); Alkaline Phosphatase 85 U/L (45-117); Anion Gap 4 (5-15); BUN 19 mg/dL (7-18); BUN/Creat Ratio 19.4 RATIO (10-20); Calcium,Total 9.4 mg/dL (8.5-10.1); Chloride 106 mmol/L (98-107); Creatinine, Serum 0.98 mg/dL (0.55-1.02); EST Glomerular Filtration Rate 60 mL/min (>60); Est Glom Filt Rate - Afr Amer 73 mL/min (>60); Globulin 3.7 g/dL (2.2-4.2); Glucose 111 mg/dL (74-106); Potassium 4.3 mmol/L (3.5-5.1); Protein, Total 7.4 g/dL (6.4-8.2); Sodium Level 139 mmol/L (136-145)
== END ==
PROVIDERS: PCP Family Medicine; Referring Provider Internal Medicine Rheumatology; Visit Provider Internal Medicine Rheumatology
DX: L40.59 Other psoriatic arthropathy (principal); L40.9 Psoriasis, unspecified; M15.9 Polyosteoarthritis, unspecified; M21.40 Flat foot [pes planus] (acquired), unspecified foot; K76.0 Fatty (change of) liver, not elsewhere classified; L71.9 Rosacea, unspecified; Z85.3 Personal history of malignant neoplasm of breast
CPT/HCPCS: 36415; 80053; 85025

== ENCOUNTER 2019-08-12 09:15 | Emergency (ER) | payer BC, SELFPAY ==
[2019-07-17 13:21] VITALS: BMI 35.8
[2019-08-12 09:16] VITALS: BP 124/78; PULSE 70; RESP 16; TEMP 36.7; O2SAT 100; BMI 36.6
--- NOTE | 2019-08-12 09:57 | CT_ITS ---
STUDY: CT ABDOMEN AND PELVIS WITH CONTRAST REASON FOR EXAM: Female, 64 years old. LEFT ABD PAIN RADIATING TO LEFT FLANK RADIATION DOSAGE (If Supplied By Facility): CTDIvol = ( 18.63 ) mGy, DLP = ( 1197.66 ) mGycm TECHNIQUE: Transaxial images were obtained from the dome of the diaphragm to the symphysis pubis without oral contrast. IV contrast was administered. Sagittal and coronal images were reconstructed. Individualized dose optimization techniques were used for this CT. COMPARISON: None. FINDINGS: The visualized lung bases are unremarkable. The visualized portions of the heart are within normal limits. Normal liver. Normal gallbladder and extrahepatic biliary system. Normal spleen. Normal pancreas. Normal bilateral adrenal glands. Normal right kidney. Normal left kidney. Normal visualized stomach. Normal small intestine. There are multiple colonic diverticula consistent with diverticulosis. The appendix is visualized and appears normal. Normal abdominal aorta. Normal inferior vena cava. Normal retroperitoneum. Normal urinary bladder. There is a small umbilical hernia containing fat. There are diffuse degenerative changes of the visualized lumbar spine. CT/Abdomen/Pelvis W IV Cont ONLY IMPRESSION: There are multiple colonic diverticula consistent with diverticulosis. There is a small umbilical hernia containing fat. Electronically Signed: Jah Valles, at 11:17 EDT Tel , Service support ,
[2019-08-12] MEDS: Ondansetron 4 MG/2 ML Vial IV (10:05)
[2019-08-12] MEDS: Morphine 4 MG/ML Syringe IV (10:05)
[2019-08-12 10:06] LABS: Mucous, Urine 0 SEEN /hpf (<or=2+); White Blood Cells 0 SEEN /hpf (0-5)
[2019-08-12 10:08] LABS: Absolute Lymphocyte Count 0.99 X10^3/uL (0.83-4.51); Absolute Neutrophil Count 2.6 X10^3/uL (2.0-7.7); Basophil# 0.04 X10^3/uL; Eosinophil# 0.24 X10^3/uL; Eosinophils% 5.8 % (0-5); Hematocrit 43.3 % (37-47); Lymphocyte # 0.99 X10^3/ul (4.0); Lymphocyte % 23.8 % (19-41); Mean Corp Hgb Conc 32.3 g/dL (32-36); Mean Corpuscular Hgb 28.5 pg (27.0-32.0); Mean Platelet Vol. 9.6 fl (6.2-12.0); Monocyte# 0.27 X10^3/uL; Monocyte% 6.5 % (0-10); NRBC Flagged by Analyzer 0 % (0-5); Neutrophil % 62.4 % (47-70); Platelet Count 170 K/mm3 (150-450); RBC Distribution Width SD 41.7 fl (35.1-43.9); Red Blood Count 4.92 M/mm3 (4.2-5.4); White Blood Count 4.2 K/mm3 (4.4-11.0)
[2019-08-12 10:09] LABS: Color, Urine Yellow (Yellow); Glucose, Dipstick Normal (Normal); Ketone-Dipstick Negative (Negative); Leukocyte Esterase-Dipstick Negative /ul (Negative); Nitrite-Dipstick Negative (Negative); Occult Blood-Urine 10 /ul (Negative); Protein-Dipstick Negative (Negative); Specific Gravity, Urine 1.015 (1.002-1.030); Urine Bilirubin Dipstick Negative (Negative); Urine Clarity Sl. Cloudy (Clear); Urine Urobilinogen Normal (Normal)
[2019-08-12 10:19] LABS: AST(SGOT) 24 U/L (15-37); Alanine Aminotransfer ALT/SGPT 22 U/L (13-56); Albumin, Serum 3.9 g/dL (3.2-5.0); Alkaline Phosphatase 81 U/L (45-117); Anion Gap 5 (5-15); BUN 15 mg/dL (7-18); BUN/Creat Ratio 15.3 RATIO (10-20); Calcium,Total 9.7 mg/dL (8.5-10.1); Chloride 109 mmol/L (98-107); Creatinine, Serum 0.98 mg/dL (0.55-1.02); EST Glomerular Filtration Rate 60 mL/min (>60); Est Glom Filt Rate - Afr Amer 73 mL/min (>60); Estimated Creatinine Clearance 52.86 ml/min; Globulin 3.8 g/dL (2.2-4.2); Glucose 101 mg/dL (74-106); Potassium 4.6 mmol/L (3.5-5.1); Protein, Total 7.7 g/dL (6.4-8.2); Sodium Level 141 mmol/L (136-145)
[2019-08-12 10:24] LABS: Bacteria 1+ /hpf (None Seen); Red Blood Cells-Urine 0-5 SEEN /hpf (0-5); Squamous Epithelial Cells - UA 0-5 SEEN /hpf (5-10)
--- NOTE | 2019-08-12 12:00 | ED.DCSUM_ITS ---
History of Present Illness Chief Complaint: Flank Pain Informant: Patient Narrative: Patient presents for evaluation of left flank pain. She tells me that she is had a lower abdominal pain on the left intermittently for months. However for the past several days she had pain in the left flank that radiates anteriorly and inferiorly. She denies any urinary symptoms. No bowel symptoms. She has a history of sigmoid diverticulosis. No fevers. No rashes. No vomiting. States she did not sleep very well last night. Past Medical History - Allergies and Home Meds Allergies/Adverse Reactions: Allergies Penicillins Adverse Reaction (Verified 08/12/19 09:18) YEAST INFECTION tamoxifen Adverse Reaction (Verified 08/12/19 09:18) myalgias/joint pain Primary Care Physician: Micheal Ulrich III, MD [Primary Care Provider] - 3-5 Days Smoking Status: Never smoker Review of Systems General: Denies: Chills, Fever, Sweats Eyes: Denies: Visual changes - bilaterally, Diplopia ENT: Denies: Rhinorrhea, Sore throat Cardiovascular: Denies: Chest pain, Palpitations Respiratory: Denies: Dyspnea, Cough, Dyspnea on exertion Gastrointestinal: Reports: Abdominal pain. Denies: Nausea, Vomiting, Diarrhea, Melena, Hematochezia Genitourinary: Denies: Dysuria, Hematuria, Frequency Musculoskeletal: Reports: Back pain. Denies: Extremity Pain Skin: Denies: Rash, Wounds Neurological: Denies: Headache, Weakness, Numbness Physical Exam Vital Signs/Narrative: Vital Signs Temp Pulse Resp BP Pulse Ox 08/12/19 09:16 98.1 F 70 16 124/78 H 100 Inital Vital Signs reviewed: Yes General: Well nourished, Well developed, No Acute Distress Head: Normocephalic, Atraumatic Eyes: Perrl, EOMI ENT: Moist mucous membranes, No rhinorrhea Neck: Supple, Nontender Cardiovascular: Regular rate, Regular rhythm, No murmurs Respiratory: No distress, CTA bilaterally, Chest nontender Abdomen: Soft, Nontender, Nondistended, Normal bowel sounds Back: Nontender, Normal Inspection Extremities: Nontender, No edema Skin: Normal color, No rash Neurological: Alert, Oriented x3, Cranial nerves II-XII grossly intact, Normal Strength, Normal Sensation Psychological: Normal affect, Normal Mood Diagnostic/Tx/Re-eval Clinical Impression(s) from Imaging Studies Abdomen/Pelvis CT 08/12/19 09:57 IMPRESSION: There are multiple colonic diverticula consistent with diverticulosis. There is a small umbilical hernia containing fat. Electronically Signed: Jah Valles, at 11:17 EDT Tel , Service support , Laboratory Last Values WBC 4.2 K/mm3 (4.4-11.0) L 08/12/19 09:30 RBC 4.92 M/mm3 (4.2-5.4) 08/12/19 09:30 Hgb 14.0 g/dL (12.0-15.0) 08/12/19 09:30 Hct 43.3 % (37-47) 08/12/19 09:30 MCV 88.0 fL (81-99) 08/12/19 09:30 MCH 28.5 pg (27.0-32.0) 08/12/19 09:30 MCHC 32.3 g/dL (32-36) 08/12/19 09:30 RDW Std Deviation 41.7 fl (35.1-43.9) 08/12/19 09:30 RDW Coeff of Zack 13.0 % (11.6-14.6) 08/12/19 09:30 Plt Count 170 K/mm3 (150-450) 08/12/19 09:30 MPV 9.6 fl (6.2-12.0) 08/12/19 09:30 Immature Gran % (Auto) 0.500 % (0.0-0.9) 08/12/19 09:30 Neut % (Auto) 62.4 % (47-70) 08/12/19 09:30 Lymph % (Auto) 23.8 % (19-41) 08/12/19 09:30 [place] % (Auto) 6.5 % (0-10) 08/12/19 09:30 Eos % (Auto) 5.8 % (0-5) H 08/12/19 09:30 Baso % (Auto) 1.0 % (0-1) 08/12/19 09:30 Absolute Neuts (auto) 2.6 X10^3/uL (2.0-7.7) 08/12/19 09:30 Absolute Lymphs (auto) 0.99 X10^3/uL (0.83-4.51) 08/12/19 09:30 Nucleated RBC % 0 % (0-5) 08/12/19 09:30 Sodium 141 mmol/L (136-145) 08/12/19 09:30 Potassium 4.6 mmol/L (3.5-5.1) 08/12/19 09:30 Chloride 109 mmol/L (98-107) H 08/12/19 09:30 Carbon Dioxide 27.0 mmol/L (21.0-32.0) 08/12/19 09:30 Anion Gap 5 (5-15) 08/12/19 09:30 BUN 15 mg/dL (7-18) 08/12/19 09:30 Creatinine 0.98 mg/dL (0.55-1.02) 08/12/19 09:30 Estim Creat Clear Calc 52.86 ml/min 08/12/19 09:30 Est GFR (MDRD) Af Amer 73 mL/min (>60) 08/12/19 09:30 Est GFR (MDRD) Non-Af 60 mL/min (>60) 08/12/19 09:30 BUN/Creatinine Ratio 15.3 RATIO (10-20) 08/12/19 09:30 Glucose 101 mg/dL (74-106) 08/12/19 09:30 Calcium 9.7 mg/dL (8.5-10.1) 08/12/19 09:30 Total Bilirubin 0.40 mg/dL (0.20-1.00) 08/12/19 09:30 AST 24 U/L (15-37) 08/12/19 09:30 ALT 22 U/L (13-56) 08/12/19 09:30 Alkaline Phosphatase 81 U/L (45-117) 08/12/19 09:30 Total Protein 7.7 g/dL (6.4-8.2) 08/12/19 09:30 Albumin 3.9 g/dL (3.2-5.0) 08/12/19 09:30 Globulin 3.8 g/dL (2.2-4.2) 08/12/19 09:30 Albumin/Globulin Ratio 1.0 RATIO (0.9-2.4) 08/12/19 09:30 Urine Color Yellow (Yellow) 08/12/19 09:40 Urine Clarity Sl. Cloudy (Clear) 08/12/19 09:40 Urine pH 5.0 (5.0 - 8.0) 08/12/19 09:40 Ur Specific [place] 1.015 (1.002-1.030) 08/12/19 09:40 Urine Protein Negative mg/dl (Negative) 08/12/19 09:40 Urine Glucose (UA) Normal mg/dl (Normal) 08/12/19 09:40 Urine Ketones Negative mg/dl (Negative) 08/12/19 09:40 Urine Occult Blood 10 /ul (Negative) H 08/12/19 09:40 Urine Nitrite Negative (Negative) 08/12/19 09:40 Urine Bilirubin Negative mg/dL (Negative) 08/12/19 09:40 Urine Urobilinogen Normal mg/dl (Normal) 08/12/19 09:40 Ur Leukocyte Esterase Negative /ul (Negative) 08/12/19 09:40 Urine RBC 0-5 SEEN /hpf (0-5) 08/12/19 09:40 Urine WBC 0 SEEN /hpf (0-5) 08/12/19 09:40 Ur Squamous Epith Cells 0-5 SEEN /hpf (5-10) 08/12/19 09:40 Urine Bacteria 1+ /hpf (None Seen) 08/12/19 09:40 Urine Mucus 0 SEEN /hpf (<or=2+) 08/12/19 09:40 - Medical Decision Making Basic labs are essentially normal. Urinalysis was normal. CT of the abdomen pelvis showed sigmoid diverticulosis otherwise negative. At this point patient be discharged home with pain medication. Of asked that she schedule follow-up appoint with her doctor towards the end of the week. In the interim should her symptoms worsen change or she has concerns she needs to return to the emergency department for repeat examination. ED Disposition - Plan for ED Patient: Diagnosis: Abdominal pain, Left flank pain Instructions: ED Abdominal Pain Unkn Cause Fem Prescriptions: Oxycodone HCl/Acetaminophen [Percocet 5/325] 1 tablet PO Q6H PRN PRN 3 Days #12 tablet PRN Reason: Pain Transmission Status: Sent to [id number] Referrals: Micheal Ulrich III, MD [Primary Care Provider] - 3-5 Days
[2019-08-12 12:02] VITALS: BP 126/73; PULSE 53; RESP 17; O2SAT 97
== END 2019-08-12 12:32 | disposition home or self-care (01) ==
PROVIDERS: Emergency Provider Emergency Medicine; PCP Family Medicine
DX: R10.32 Left lower quadrant pain (principal)
CPT/HCPCS: 74177; 80053; 81001; 85025; 96374; 96375; 99283; Q9967; A4216; J2405

== ENCOUNTER → 2019-11-29 09:35 | Outpatient (CLI) | payer BC, SELFPAY ==
[2019-11-29 08:51] VITALS: BMI 35.2
[2019-11-29 10:29] LABS: Absolute Lymphocyte Count 1.24 X10^3/uL (0.83-4.51); Absolute Neutrophil Count 2.6 X10^3/uL (2.0-7.7); Basophil# 0.04 X10^3/uL; Basophil% 0.9 % (0-1); Eosinophil# 0.14 X10^3/uL; Eosinophils% 3.2 % (0-5); Hematocrit 42.2 % (37-47); Hemoglobin 13.6 g/dL (12.0-15.0); Lymphocyte # 1.24 X10^3/ul (4.0); Lymphocyte % 27.9 % (19-41); Mean Corp Hgb Conc 32.2 g/dL (32-36); Mean Corpuscular Hgb 28.5 pg (27.0-32.0); Mean Corpuscular Volume 88.5 fL (81-99); Mean Platelet Vol. 9.5 fl (6.2-12.0); Monocyte# 0.39 X10^3/uL; Monocyte% 8.8 % (0-10); NRBC Flagged by Analyzer 0 % (0-5); Neutrophil # 2.62 X10^3/uL (2.7-7.7); Platelet Count 194 K/mm3 (150-450); RBC Distribution Width CV 12.7 % (11.6-14.6); RBC Distribution Width SD 41.2 fl (35.1-43.9); Red Blood Count 4.77 M/mm3 (4.2-5.4); White Blood Count 4.4 K/mm3 (4.4-11.0)
[2019-11-29 11:10] LABS: Anion Gap 4 (5-15); BUN 12 mg/dL (7-18); BUN/Creat Ratio 12.7 RATIO (10-20); Calcium,Total 9.9 mg/dL (8.5-10.1); Chloride 106 mmol/L (98-107); Creatinine, Serum 0.94 mg/dL (0.55-1.02); EST Glomerular Filtration Rate 63 mL/min (>60); Est Glom Filt Rate - Afr Amer 76 mL/min (>60); Glucose 97 mg/dL (74-106); Magnesium 2.5 mg/dL (1.6-2.6); Potassium 4.5 mmol/L (3.5-5.1); Sodium Level 140 mmol/L (136-145); Thyroid Stim Hormone (TSH) 1.38 uIU/mL (0.358-3.74)
== END ==
PROVIDERS: PCP Family Medicine; Referring Provider Physician Assistant Medical; Visit Provider Physician Assistant Medical
DX: I48.0 Paroxysmal atrial fibrillation (principal)
CPT/HCPCS: 36415; 80048; 83735; 84443; 85025

== ENCOUNTER → 2019-12-11 09:18 | Outpatient (CLI) | payer BC, SELFPAY ==
[2019-11-29 08:51] VITALS: BMI 35.2
== END ==
PROVIDERS: PCP Family Medicine; Referring Provider Physician Assistant Medical; Visit Provider Physician Assistant Medical
DX: I48.0 Paroxysmal atrial fibrillation (principal)
CPT/HCPCS: 93225; 93226

== ENCOUNTER → 2020-01-27 11:31 | Outpatient (CLI) | payer BC, SELFPAY ==
[2019-11-29 08:51] VITALS: BMI 35.2
[2020-01-27 15:09] LABS: Absolute Lymphocyte Count 1.25 X10^3/uL (0.83-4.51); Absolute Neutrophil Count 2.5 X10^3/uL (2.0-7.7); Basophil# 0.03 X10^3/uL; Basophil% 0.7 % (0-1); Eosinophil# 0.07 X10^3/uL; Eosinophils% 1.7 % (0-5); Hematocrit 42.3 % (37-47); Hemoglobin 13.3 g/dL (12.0-15.0); Lymphocyte # 1.25 X10^3/ul (4.0); Lymphocyte % 30.3 % (19-41); Mean Corp Hgb Conc 31.4 g/dL (32-36); Mean Corpuscular Volume 89.1 fL (81-99); Mean Platelet Vol. 9.1 fl (6.2-12.0); Monocyte# 0.24 X10^3/uL; Monocyte% 5.8 % (0-10); NRBC Flagged by Analyzer 0 % (0-5); Neutrophil # 2.51 X10^3/uL (2.7-7.7); Platelet Count 161 K/mm3 (150-450); RBC Distribution Width SD 42.5 fl (35.1-43.9); Red Blood Count 4.75 M/mm3 (4.2-5.4); White Blood Count 4.1 K/mm3 (4.4-11.0)
[2020-01-27 15:54] LABS: ALB/GLOB Ratio 1.1 RATIO (0.9-2.4); AST(SGOT) 26 U/L (15-37); Alanine Aminotransfer ALT/SGPT 27 U/L (13-56); Albumin, Serum 3.8 g/dL (3.2-5.0); Alkaline Phosphatase 77 U/L (45-117); Anion Gap 6 (5-15); BUN 10 mg/dL (7-18); BUN/Creat Ratio 11.5 RATIO (10-20); Calcium,Total 9.2 mg/dL (8.5-10.1); Chloride 103 mmol/L (98-107); Creatinine, Serum 0.87 mg/dL (0.55-1.02); EST Glomerular Filtration Rate 69 mL/min (>60); Est Glom Filt Rate - Afr Amer 84 mL/min (>60); Globulin 3.6 g/dL (2.2-4.2); Glucose 77 mg/dL (74-106); Protein, Total 7.4 g/dL (6.4-8.2); Sodium Level 139 mmol/L (136-145)
== END ==
PROVIDERS: PCP Family Medicine; Referring Provider Internal Medicine Rheumatology; Visit Provider Internal Medicine Rheumatology
DX: L40.59 Other psoriatic arthropathy (principal); L40.9 Psoriasis, unspecified; M15.9 Polyosteoarthritis, unspecified; M21.40 Flat foot [pes planus] (acquired), unspecified foot; K76.0 Fatty (change of) liver, not elsewhere classified; L71.9 Rosacea, unspecified; Z85.3 Personal history of malignant neoplasm of breast
CPT/HCPCS: 36415; 80053; 85025

== ENCOUNTER → 2020-07-17 09:43 | Outpatient (CLI) | payer BC, SELFPAY ==
[2019-11-29 08:51] VITALS: BMI 35.2
[2020-07-17 12:47] LABS: Absolute Lymphocyte Count 0.92 X10^3/uL (0.83-4.51); Absolute Neutrophil Count 2.3 X10^3/uL (2.0-7.7); Basophil# 0.02 X10^3/uL; Basophil% 0.5 % (0-1); Eosinophil# 0.09 X10^3/uL; Eosinophils% 2.4 % (0-5); Hematocrit 41.8 % (37-47); Hemoglobin 13.4 g/dL (12.0-15.0); Lymphocyte # 0.92 X10^3/ul (0.83-4.51); Lymphocyte % 24.9 % (19-41); Mean Corp Hgb Conc 32.1 g/dL (32-36); Mean Corpuscular Hgb 28.5 pg (27.0-32.0); Mean Corpuscular Volume 88.9 fL (81-99); Mean Platelet Vol. 9.9 fl (6.2-12.0); Monocyte# 0.33 X10^3/uL; Monocyte% 8.9 % (0-10); NRBC Flagged by Analyzer 0 % (0-5); Neutrophil # 2.33 X10^3/uL (2.7-7.7); Platelet Count 182 K/mm3 (150-450); RBC Distribution Width CV 12.6 % (11.6-14.6); RBC Distribution Width SD 40.7 fl (35.1-43.9); White Blood Count 3.7 K/mm3 (4.4-11.0)
[2020-07-17 13:02] LABS: ALB/GLOB Ratio 1.2 RATIO (0.9-2.4); AST(SGOT) 23 U/L (15-37); Alanine Aminotransfer ALT/SGPT 25 U/L (13-56); Alkaline Phosphatase 68 U/L (45-117); Anion Gap 6 (5-15); BUN 14 mg/dL (7-18); BUN/Creat Ratio 13.3 RATIO (10-20); Calcium,Total 9.9 mg/dL (8.5-10.1); Chloride 104 mmol/L (98-107); Creatinine, Serum 1.05 mg/dL (0.55-1.02); EST Glomerular Filtration Rate 56 mL/min (>60); Est Glom Filt Rate - Afr Amer 67 mL/min (>60); Globulin 3.4 g/dL (2.2-4.2); Glucose 89 mg/dL (74-106); Potassium 3.9 mmol/L (3.5-5.1); Protein, Total 7.4 g/dL (6.4-8.2); Sodium Level 139 mmol/L (136-145)
== END ==
PROVIDERS: PCP Family Medicine; Referring Provider Internal Medicine Rheumatology; Visit Provider Internal Medicine Rheumatology
DX: L40.59 Other psoriatic arthropathy (principal); L40.9 Psoriasis, unspecified; M15.9 Polyosteoarthritis, unspecified; M21.40 Flat foot [pes planus] (acquired), unspecified foot; K76.0 Fatty (change of) liver, not elsewhere classified; L71.9 Rosacea, unspecified; Z85.3 Personal history of malignant neoplasm of breast
CPT/HCPCS: 36415; 80053; 85025

== ENCOUNTER → 2021-01-11 09:00 | Outpatient (CLI) | payer BC, SELFPAY | PROVIDERS: Referring Provider Nurse Practitioner Family; Visit Provider Nurse Practitioner Family | DX: I48.0 Paroxysmal atrial fibrillation (principal) | CPT/HCPCS: 93225; 93226 ==

== ENCOUNTER → 2021-01-13 14:13 | Outpatient (CLI) | payer BC, SELFPAY ==
[2021-01-13 17:37] LABS: Absolute Lymphocyte Count 1.21 X10^3/uL (0.83-4.51); Absolute Neutrophil Count 3.3 X10^3/uL (2.0-7.7); Basophil# 0.05 X10^3/uL; Eosinophil# 0.14 X10^3/uL; Eosinophils% 2.7 % (0-5); Hematocrit 40.2 % (37-47); Hemoglobin 12.9 g/dL (12.0-15.0); Lymphocyte # 1.21 X10^3/ul (0.83-4.51); Lymphocyte % 23.7 % (19-41); Mean Corp Hgb Conc 32.1 g/dL (32-36); Mean Corpuscular Hgb 28.5 pg (27.0-32.0); Mean Corpuscular Volume 88.9 fL (81-99); Mean Platelet Vol. 9.6 fl (6.2-12.0); Monocyte# 0.38 X10^3/uL; Monocyte% 7.5 % (0-10); NRBC Flagged by Analyzer 0 % (0-5); Neutrophil # 3.31 X10^3/uL (2.7-7.7); Neutrophil % 64.9 % (47-70); Platelet Count 194 K/mm3 (150-450); RBC Distribution Width CV 13.5 % (11.6-14.6); RBC Distribution Width SD 44.1 fl (35.1-43.9); Red Blood Count 4.52 M/mm3 (4.2-5.4); White Blood Count 5.1 K/mm3 (4.4-11.0)
[2021-01-13 17:54] LABS: AST(SGOT) 23 U/L (15-37); Alanine Aminotransfer ALT/SGPT 26 U/L (13-56); Albumin, Serum 3.6 g/dL (3.2-5.0); Alkaline Phosphatase 66 U/L (45-117); Anion Gap 6 (5-15); BUN 16 mg/dL (7-18); BUN/Creat Ratio 14.5 RATIO (10-20); Calcium,Total 9.4 mg/dL (8.5-10.1); Chloride 104 mmol/L (98-107); EST Glomerular Filtration Rate 53 mL/min (>60); Est Glom Filt Rate - Afr Amer 64 mL/min (>60); Globulin 3.7 g/dL (2.2-4.2); Glucose 92 mg/dL (74-106); Potassium 4.1 mmol/L (3.5-5.1); Protein, Total 7.3 g/dL (6.4-8.2); Sodium Level 141 mmol/L (136-145)
== END ==
PROVIDERS: Referring Provider Internal Medicine Rheumatology; Visit Provider Internal Medicine Rheumatology
DX: L40.59 Other psoriatic arthropathy (principal); L40.9 Psoriasis, unspecified; M15.9 Polyosteoarthritis, unspecified; M21.40 Flat foot [pes planus] (acquired), unspecified foot; K76.0 Fatty (change of) liver, not elsewhere classified; L71.9 Rosacea, unspecified; Z85.3 Personal history of malignant neoplasm of breast
CPT/HCPCS: 36415; 80053; 85025

== ENCOUNTER 2021-03-01 05:32 | Emergency (ER) | payer BC, SELFPAY ==
[2021-03-01 05:32] VITALS: BP 126/82; PULSE 75; RESP 16; TEMP 36.8; O2SAT 98; BMI 35.4
--- NOTE | 2021-03-01 05:49 | EDS_ITS ---
HPI History of Present Illness Chief Complaint: Dental Informant: patient Onset/Context/Timing Onset: Today and Hours Context: Gradual Onset Timing: Continuous Current Severity: Mild Maximum Severity: Mild Associated Symptoms Assocated Symptom - Dental: Negative for fever, jaw swelling, face swelling, cold sensitivity or hot sensitivity Narrative Narrative: 65-year-old fit female history of A. fib for which she is on Eliquis and history of breast cancer which she had lumpectomy. States she has had some dental discomfort after eating some tuna salad today. She denies any swelling of her gums, lips or tongue. She does have a history of TMJ. She denies any trauma. She denies any fever chills or any other symptoms. No chest pain, shortness of breath or nausea. Prior similar symptoms: No Recent Illness/Hospitalization: No PFSH PFS Medical History Arthritis Cancer of right breast Knee pain Liver disease Obesity Paroxysmal atrial fibrillation (11/12/18) Shoulder pain Home Medications Lactobacillus acidophilus 1 ea PO DAILY 07/25/13 [History Last Taken Unknown] atenolol 25 mg PO DAILY 07/25/13 [History Last Taken Unknown] omega-3 fatty acids 500 mg PO DAILY 07/25/13 [History Last Taken Unknown] apremilast 30 mg tablet 30 mg PO .daily #30 tab 11/13/18 [History Last Taken Unknown] meclizine 12.5 mg tablet 12.5 mg PO DAILY PRN tab 07/17/19 [History Last Taken Unknown] apixaban 5 mg tablet 5 mg PO BID #180 tab 11/23/20 [Rx Last Taken Unknown] pramipexole 0.25 mg tablet 0.25 mg PO QHS PRN 01/04/21 [History Last Taken Unknown] Allergy/AdvReac Type Severity Reaction Status Date / Time Penicillins AdvReac YEAST Verified 03/01/21 05:40 INFECTION tamoxifen AdvReac myalgias/joint Verified 03/01/21 05:40 pain Family History Mother Hypertension Heart disease /MVP CAD (coronary artery disease) Father Leukemia Brother Hypertension Brother Hypertension Surgical History History of hysterectomy History of knee replacement History of lumpectomy History of tonsillectomy Social History Smoking Status: Never smoker alcohol intake: never ROS ROS ED ROS Narrative Denies recent illness. Review of Systems ROS Unobtainable: Denies due to encephalopathy Constitutional Constitutional ED: Denies fever(s) Eyes Eyes: Denies change in vision ENT ENT ED: Denies ear pain Cardiovascular Cardiovascular: Denies chest pain Respiratory/Chest Respiratory/Chest: Denies cough or dyspnea Gastrointestinal Gastrointestinal: Denies abdominal pain, diarrhea, nausea or vomiting Genitourinary Genitourinary ED: Denies dysuria Musculoskeletal Musculoskeletal: Denies myalgias Integumentary Denies rash Neurologic Neurologic: Denies headache(s) Psychiatric Psychiatric: Denies depression Endocrine Endocrinology: Denies polyuria Hematologic/Lymphatic Hematologic/Lymphatic: Denies easy bruising Allergic/Immunologic Allergic/Immunologic ED: Denies urticaria EXAM Physical Exam Narrative Exam Narrative: 65-year-old female no acute distress. Vital signs stable afebrile. HEENT exam unremarkable. She has no swelling of her lips or tongue. Floor of her mouth is normal and nontender. Posterior pharynx normal. No erythema or exudate. Moist weakness membranes. Her teeth rash in very good condition. There is no signs of trauma. No gingivitis or abscess. She can easily open and close her mouth. I do not see any obvious cavity or foreign bodies. When she open and close her mouth she has a clicking consistent with TMJ on the left but she is able to do it easily and without difficulty. There is no reproducible tenderness to her mouth. She does have some fillings but they all appear to be in good shape. Neck nontender no lymphadenopathy. TMs are normal. Rest of exam normal. Lungs are clear. Heart regular rate and rhythm. Abdomen soft. Const Vital Signs: 03/01/21 05:32 Temperature 98.2 F Temperature Source Temporal Pulse Rate 75 Respiratory Rate 16 Blood Pressure 126/82 H Blood Pressure Mean 96 Pulse Ox 98 Oxygen Delivery Method Room Air Positive well nourished and well developed General Appearance ED: well developed and NAD; Negative for pallor HEENT Reports TM's clear HEENT Narrative: Well-appearing dentition. No abscess. Click consistent with TMJ. Negative for trauma or tenderness Face and Sinus: sinuses nontender Tympanic Membrane ED: Yes TM's clear Mouth ED: Yes oral and palatal mucosa normal, Yes lips normal, Yes tongue normal, Yes salivary gland normal, No mouth trauma, No oral and palatal mucosa abnormal and No salivary gland abnormal Mouth: oral and palatal mucosa normal, lips normal, tongue normal, salivary gland normal, No mouth trauma, No oral and palatal mucosa abnormal and No salivary gland abnormal Teeth and Gingiva: Negative for abnormal tooth and associated gingiva, caries, gingiva abnormal, poor dentition or teeth discoloration Throat: posterior oropharynx normal Eyes PERRL and EOMs intact bilaterally General Eye ED: Negative for pale conjunctiva or scleral icterus Neck no lymphadenopathy, supple and no JVD General: normal visual inspection; Negative for anterior neck swelling, tenderness or submandibular swelling Lymph Lymphatic: no lymphadenopathy noted; Negative for lymphadenopathy Chest Wall inspection of chest normal and palpation of chest normal Resp normal respiratory effort, No no retractions and clear to auscultation bilaterally Cardio regular rate, regular rhythm, S1 normal heart sound, S2 normal heart sound and no murmurs GI normal to inspection, nondistended, normoactive bowel sounds, non-tender, non- distended and no masses Palpation: soft Back/Spine no CVA tenderness General Back: Negative for CVA tenderness Thoracic Spine / Upper Back: Negative for thoracic spinal tenderness or paraspinal muscle tenderness Extremity normal to inspection and no joint enlargement General Extremety ED: Negative for edema General Extremity: Negative for edema Neuro oriented x3, moves all extremities and no focal motor deficits Sensorium / Orientation: alert, oriented to person, oriented to place and oriented to time; Negative for orientation impaired Psych mental status grossly normal Skin no rashes or lesions noted and no wounds General Skin Exam: Negative for pallor MDM MDM MDM Narrative Medical decision making narrative: Well-appearing female complaining of dental pain. Dental exam is unremarkable. She has no other symptoms. There is no abscess. No gingivitis. No mouth, lip or gum swelling. She will be given 1 [place] for pain to take at home since she drove. Otherwise Tylenol. Follow-up with her dentist. Discharge Plan Triage Chief Complaint: Dental ED Provider: Berhane Glynn Dx/Rx/DC Orders Clinical Impression: Pain, dental Instructions: ED Dental Pain Prescriptions: No Action Otezla 30 mg tablet 30 mg PO .daily Qty: 30 RF: 0 meclizine 12.5 mg tablet 12.5 mg PO DAILY PRN (Reason: Dizziness) RF: 0 atenolol 25 MG tablet 25 mg PO DAILY RF: 0 omega-3 fatty acids 500 MG capsule 500 mg PO DAILY RF: 0 Lactobacillus acidophilus 1 EACH tablet 1 ea PO DAILY RF: 0 Eliquis 5 mg tablet 5 mg PO BID Qty: 180 RF: 3 pramipexole [Mirapex] 0.25 mg tablet 0.25 mg PO QHS PRN (Reason: restless leg(s)) RF: 0 Primary Care Provider: Jhonatan Abbott Referrals: Jhonatan Abbott MD [Primary Care Provider] - Activity Restrictions/Additional Instructions: No obvious abnormality involving your dentition. Call and follow-up with your dentist. You can use the one [place] at home for pain. Disposition Disposition: Home, Self Care
[2021-03-01] MEDS: HYDROcodone Bitartrate/Apap 5/325 Tablet PO (05:52)
== END 2021-03-01 05:56 | disposition home or self-care (01) ==
PROVIDERS: Emergency Provider Emergency Medicine; PCP Family Medicine
DX: K08.89 Other specified disorders of teeth and supporting structures (principal); I48.0 Paroxysmal atrial fibrillation; Z85.3 Personal history of malignant neoplasm of breast; Z79.01 Long term (current) use of anticoagulants; Z79.899 Other long term (current) drug therapy
CPT/HCPCS: 99283

== ENCOUNTER → 2021-03-17 11:42 | Outpatient (CLI) | payer BC, SELFPAY ==
[2021-03-17 15:09] LABS: Absolute Lymphocyte Count 1.74 X10^3/uL (0.83-4.51); Absolute Neutrophil Count 4.3 X10^3/uL (2.0-7.7); Basophil# 0.04 X10^3/uL; Basophil% 0.6 % (0-1); Eosinophil# 0.11 X10^3/uL; Eosinophils% 1.7 % (0-5); Hematocrit 42.2 % (37-47); Hemoglobin 13.8 g/dL (12.0-15.0); Lymphocyte # 1.74 X10^3/ul (0.83-4.51); Lymphocyte % 26.2 % (19-41); Mean Corp Hgb Conc 32.7 g/dL (32-36); Mean Corpuscular Hgb 28.9 pg (27.0-32.0); Mean Corpuscular Volume 88.5 fL (81-99); Monocyte# 0.47 X10^3/uL; Monocyte% 7.1 % (0-10); NRBC Flagged by Analyzer 0 % (0-5); Neutrophil # 4.27 X10^3/uL (2.7-7.7); Neutrophil % 64.1 % (47-70); Platelet Count 217 K/mm3 (150-450); RBC Distribution Width CV 13.5 % (11.6-14.6); RBC Distribution Width SD 43.6 fl (35.1-43.9); Red Blood Count 4.77 M/mm3 (4.2-5.4); White Blood Count 6.7 K/mm3 (4.4-11.0)
[2021-03-17 15:24] LABS: Free T3 2.9 pg/mL (2.18-3.98); Magnesium 2.3 mg/dL (1.6-2.6); T4 Free Direct 1.15 ng/dL (0.76-1.46); Thyroid Stim Hormone (TSH) 1.69 uIU/mL (0.358-3.74)
[2021-03-17 15:28] LABS: AST(SGOT) 28 U/L (15-37); Alanine Aminotransfer ALT/SGPT 39 U/L (13-56); Albumin, Serum 3.9 g/dL (3.2-5.0); Alkaline Phosphatase 72 U/L (45-117); Anion Gap 10 (5-15); BUN 15 mg/dL (7-18); BUN/Creat Ratio 17.3 RATIO (10-20); Calcium,Total 9.8 mg/dL (8.5-10.1); Chloride 101 mmol/L (98-107); Creatinine, Serum 0.87 mg/dL (0.55-1.02); EST Glomerular Filtration Rate 69 mL/min (>60); Est Glom Filt Rate - Afr Amer 84 mL/min (>60); Globulin 3.8 g/dL (2.2-4.2); Glucose 73 mg/dL (74-106); Potassium 4.5 mmol/L (3.5-5.1); Protein, Total 7.7 g/dL (6.4-8.2); Sodium Level 141 mmol/L (136-145)
== END ==
PROVIDERS: PCP Family Medicine; Referring Provider Physician Assistant Medical; Visit Provider Physician Assistant Medical
DX: L40.59 Other psoriatic arthropathy (principal); L40.9 Psoriasis, unspecified; M15.9 Polyosteoarthritis, unspecified; M21.40 Flat foot [pes planus] (acquired), unspecified foot; K76.0 Fatty (change of) liver, not elsewhere classified; L71.9 Rosacea, unspecified; R00.2 Palpitations; I48.0 Paroxysmal atrial fibrillation; Z85.3 Personal history of malignant neoplasm of breast
CPT/HCPCS: 36415; 80053; 83735; 84439; 84443; 84481; 85025

== ENCOUNTER 2021-06-03 14:12 | Emergency (ER) | payer BC, SELFPAY ==
[2021-06-03 14:14] VITALS: BP 141/76; PULSE 73; RESP 14; TEMP 36.2; O2SAT 97; BMI 36.9
--- NOTE | 2021-06-03 14:37 | EX.ED.DYSGE1 ---
HPI <IRMA Moy - Last Filed: 06/03/21 14:58> History of Present Illness Chief Complaint: Foreign Body Narrative Narrative: 65-year-old female presents with concern for esophageal foreign body. Around noon she was eating real broccoli and felt like a piece got stuck in her throat. She was spitting up some clear phlegm and tried to induce vomiting and had a small episode of emesis. She feels like the broccoli probably passed but she still has a lot of soreness and fullness in her throat. No difficulty swallowing or breathing. No chest pain. She does report over the last 6 months she has had 4-5 similar episodes but was not evaluated. She has no odynophagia or dysphagia with liquids. She saw a GI doctor over a year ago and reports having a endoscopy and colonoscopy. She thinks there was some esophageal inflammation but is not sure of the results. [facility] <IRMA Moy - Last Filed: 06/03/21 14:58> [facility] Medical History Arthritis Cancer of right breast Knee pain Liver disease Obesity Paroxysmal atrial fibrillation (11/12/18) Shoulder pain Home Medications Lactobacillus acidophilus 1 ea PO DAILY 07/25/13 [History Last Taken Unknown] atenolol 25 mg PO DAILY 07/25/13 [History Last Taken Unknown] omega-3 fatty acids 500 mg PO DAILY 07/25/13 [History Last Taken Unknown] apremilast 30 mg tablet 30 mg PO .daily #30 tab 11/13/18 [History Last Taken Unknown] meclizine 12.5 mg tablet 12.5 mg PO DAILY PRN tab 07/17/19 [History Last Taken Unknown] apixaban 5 mg tablet 5 mg PO BID #180 tab 11/23/20 [Rx Last Taken Unknown] pramipexole 0.25 mg tablet 0.25 mg PO QHS PRN 01/04/21 [History Last Taken Unknown] doxycycline hyclate 06/03/21 [History Last Taken Unknown] omeprazole 40 mg PO DAILY 30 Days #30 cap 06/03/21 [Rx Last Taken Unknown] Allergy/AdvReac Type Severity Reaction Status Date / Time Penicillins AdvReac YEAST Verified 06/03/21 14:14 INFECTION tamoxifen AdvReac myalgias/joint Verified 06/03/21 14:14 pain Family History Mother Hypertension Heart disease /MVP CAD (coronary artery disease) Father Leukemia Brother Hypertension Brother Hypertension Surgical History History of hysterectomy History of knee replacement History of lumpectomy History of tonsillectomy Social History Smoking Status: Never smoker alcohol intake: never ROS <IRMA Moy - Last Filed: 06/03/21 14:58> ROS ED ROS Narrative Constitutional: Negative for fever, chills, malaise. Eyes: Negative for visual change. ENT: Positive for sore throat. Negative for ear pain, rhinorrhea. CVS: Negative for palpitations, chest pain, syncope. Respiratory: Negative for shortness of breath, cough, orthopnea. GI: Negative for abdominal pain, nausea, vomiting, diarrhea, constipation, melena, hematochezia. : Negative for dysuria, hematuria or frequency. Neuro: Negative for headache, motor/sensory dysfunction. Skin: Negative for rash, abscess, or wound. Musc: Negative for joint pain, swelling, trauma. Heme: Negative for easy bruising, bleeding, lymphadenopathy. EXAM <IRMA Moy - Last Filed: 06/03/21 14:58> Physical Exam Narrative Exam Narrative: CONST: Patient sitting in no acute distress. EYES: Normal inspection. ENT: Normal inspection, moist mucous membranes, normal oropharynx with midline uvula, airway patent. NECK: Normal inspection. Trachea midline, no masses or lymphadenopathy. RESP: No respiratory distress, CTAB. CVS: Regular rate and rhythm, no murmur, no gallop. SKIN: Color normal, no rash, warm, dry, intact. EXTREMITIES: Normal appearance, no pedal edema. NEURO: Oriented x4. PSYCH: Normal affect. Const Vital Signs: 06/03/21 14:14 06/03/21 14:30 Temperature 97.2 F L Temperature Source Temporal Pulse Rate 73 Respiratory Rate 14 Respiratory Pattern Normal Blood Pressure 141/76 H Blood Pressure Mean 97 Pulse Ox 97 Oxygen Delivery Method Room Air <Dr. Ji Robles MD - Last Filed: 06/03/21 15:21> Physical Exam Const Vital Signs: 06/03/21 14:14 06/03/21 14:30 Temperature 97.2 F L Temperature Source Temporal Pulse Rate 73 Respiratory Rate 14 Respiratory Pattern Normal Blood Pressure 141/76 H Blood Pressure Mean 97 Pulse Ox 97 Oxygen Delivery Method Room Air [facility] <IRMA Moy - Last Filed: 06/03/21 14:58> [facility] Narrative Medical decision making narrative: Patient felt like a piece of broccoli was stuck in her throat earlier in self-induced vomiting. She now has a sore throat. She appears well nontoxic. Vital signs within normal limits. She is sitting and in no respiratory distress?97% on room air. Airway appears normal with midline uvula. Trachea is midline. Neck is supple with no masses. Heart is regular and lungs fair to auscultation. She was able to drink fluids here with no vomiting. I did not find her prior endoscopy records here or on [facility]. She will be placed on a PPI and given a GI referral. She was counseled to thoroughly chew her food and return to the ER for any new or worsening symptoms. 1. Esophageal foreign body?resolved <Dr. Ji Robles MD - Last Filed: 06/03/21 15:21> [facility] Narrative Medical decision making narrative: Seen and evaluated independently and in conjunction with physician licensed nursing assistant. Agree with notes above unless documented otherwise. Exam: Patient speaking without any difficulty or hoarseness, she has no stridor, oropharynx clear, no hyper secretions. Comfortable and alert in no distress. Patient is indicating discomfort and possible foreign body sensation in the posterior distal oropharynx. I think this is less likely esophageal. She is able to pass fluids right now without any difficulty. Discussed with Dr. Beebe, with whom she has been seen before for other issues, he can scope her tomorrow in the office, and agrees that the patient is stable for discharge home until then. Discharge Plan Triage Chief Complaint: Foreign Body ED Provider: Kimberlee Browne Dx/Rx/DC Orders Clinical Impression: Dysphagia, oropharyngeal Instructions: ED Esophageal Foreign Body, Resolved Prescriptions: New omeprazole 40 mg capsule,delayed release(DR/EC) 40 mg PO DAILY 30 Days Qty: 30 RF: 0 No Action Otezla 30 mg tablet 30 mg PO .daily Qty: 30 RF: 0 meclizine 12.5 mg tablet 12.5 mg PO DAILY PRN (Reason: Dizziness) RF: 0 atenolol 25 MG tablet 25 mg PO DAILY RF: 0 omega-3 fatty acids 500 MG capsule 500 mg PO DAILY RF: 0 Lactobacillus acidophilus 1 EACH tablet 1 ea PO DAILY RF: 0 doxycycline hyclate 100 mg tablet RF: 0 Eliquis 5 mg tablet 5 mg PO BID Qty: 180 RF: 3 pramipexole [Mirapex] 0.25 mg tablet 0.25 mg PO QHS PRN (Reason: restless leg(s)) RF: 0 Primary Care Provider: Jhonatan Abbott Referrals: Waldemar Beebe MD [STAFF PHYSICIAN] - 1 Day (call for appt time for tomorrow) Jhonatan Abbott MD [Primary Care Provider] - Activity Restrictions/Additional Instructions: To see Dr. Beebe tomorrow. Call his office to make an appointment. Come back to the ER for new or worsening symptoms. Disposition Disposition: Home, Self Care
== END 2021-06-03 15:20 | disposition home or self-care (01) ==
PROVIDERS: Emergency Provider Physician Assistant; PCP Family Medicine; Visit Provider Physician Assistant
DX: R13.12 Dysphagia, oropharyngeal phase (principal)
CPT/HCPCS: 99282

== ENCOUNTER 2021-06-11 09:05 | Outpatient (CLI) | payer BC, SELFPAY ==
--- NOTE | 2021-06-11 09:11 | RAD_ITS ---
INDICATION: DYSPHAGIA EXAMINATION/TECHNIQUE: Oral oral contrast and gas bubbles were administered to the patient. Total Fluoroscopic Time: 49 seconds AND number of Fluoroscopic Images: 50 images OR Radiation dosage index: COMPARISON: None. FINDINGS: Initial AP images of the chest and upper abdomen were obtained demonstrating no radiopaque foreign bodies or surgical clips. On initial swallowing, there was normal motility with contrast passing freely into the stomach. On subsequent swallowing, there was delay in transit of liquid barium in the distal esophagus to the level of a hiatal hernia with a Schatzki''s ring. Liquid barium was able to empty into the stomach without significant delay. No reflux elicited. No masses identified. Mucosal pattern is otherwise unremarkable. A barium pill was then administered and was seen in-transit at the level of the Schatzki''s ring in the distal esophagus. A few fluoroscopic spot images were periodically obtained to check progress of transition. The pill was eventually passed into the stomach after approximately 20 minutes from initiation. RAD/Esophagus Single Contrast IMPRESSION: 1. Hiatal hernia with a Schatzki''s ring. 2. Mild delay in transit of liquid barium. 3. Approximately 20 minutes delay in passage of the solid barium pill into the stomach. Electronically Signed: Matt Tian, at 14:23 EDT ,
== END 2021-06-11 23:59 | disposition home or self-care (01) ==
LOC: RAD 09:06
PROVIDERS: PCP Family Medicine; Visit Provider Otolaryngology
DX: R13.10 Dysphagia, unspecified (principal)
CPT/HCPCS: 74220

== ENCOUNTER → 2021-09-13 | Outpatient (CLI) | payer BC, SELFPAY ==
[2021-09-13 15:23] LABS: Absolute Lymphocyte Count 1.14 X10^3/uL (0.83-4.51); Absolute Neutrophil Count 3.1 X10^3/uL (2.0-7.7); Basophil# 0.04 X10^3/uL; Basophil% 0.8 % (0-1); Eosinophil# 0.18 X10^3/uL; Eosinophils% 3.8 % (0-5); Hematocrit 39.9 % (37-47); Hemoglobin 12.8 g/dL (12.0-15.0); Lymphocyte # 1.14 X10^3/ul (0.83-4.51); Lymphocyte % 23.8 % (19-41); Mean Corp Hgb Conc 32.1 g/dL (32-36); Mean Corpuscular Hgb 28.3 pg (27.0-32.0); Mean Corpuscular Volume 88.3 fL (81-99); Monocyte# 0.29 X10^3/uL; Monocyte% 6.1 % (0-10); NRBC Flagged by Analyzer 0 % (0-5); Neutrophil # 3.12 X10^3/uL (2.7-7.7); Neutrophil % 65.3 % (47-70); Platelet Count 191 K/mm3 (150-450); RBC Distribution Width SD 41.6 fl (35.1-43.9); Red Blood Count 4.52 M/mm3 (4.2-5.4); White Blood Count 4.8 K/mm3 (4.4-11.0)
[2021-09-13 15:55] LABS: ALB/GLOB Ratio 1.1 RATIO (0.9-2.4); AST(SGOT) 22 U/L (15-37); Alanine Aminotransfer ALT/SGPT 21 U/L (13-56); Albumin, Serum 3.7 g/dL (3.2-5.0); Alkaline Phosphatase 68 U/L (45-117); Anion Gap 4 (5-15); BUN 12 mg/dL (7-18); BUN/Creat Ratio 12.2 RATIO (10-20); Calcium,Total 9.4 mg/dL (8.5-10.1); Chloride 105 mmol/L (98-107); Creatinine, Serum 0.98 mg/dL (0.55-1.02); EST Glomerular Filtration Rate 60 mL/min (>60); Est Glom Filt Rate - Afr Amer 72 mL/min (>60); Globulin 3.4 g/dL (2.2-4.2); Glucose 87 mg/dL (74-106); Potassium 4.2 mmol/L (3.5-5.1); Protein, Total 7.1 g/dL (6.4-8.2); Sodium Level 140 mmol/L (136-145)
== END | disposition home or self-care (01) ==
LOC: MTLAB 14:06
PROVIDERS: PCP Family Medicine; Referring Provider Internal Medicine Rheumatology; Visit Provider Internal Medicine Rheumatology
DX: L40.59 Other psoriatic arthropathy (principal); M15.9 Polyosteoarthritis, unspecified; M21.40 Flat foot [pes planus] (acquired), unspecified foot; K76.0 Fatty (change of) liver, not elsewhere classified; L71.9 Rosacea, unspecified; Z85.3 Personal history of malignant neoplasm of breast
CPT/HCPCS: 36415; 80053; 85025

== ENCOUNTER → 2022-03-01 | Outpatient (CLI) | payer BC, SELFPAY ==
[2022-03-01 17:43] LABS: Absolute Lymphocyte Count 1.35 X10^3/uL (0.83-4.51); Absolute Neutrophil Count 2.8 X10^3/uL (2.0-7.7); Basophil# 0.04 X10^3/uL; Basophil% 0.8 % (0-1); Eosinophil# 0.19 X10^3/uL; Hematocrit 42.6 % (37-47); Hemoglobin 13.7 g/dL (12.0-15.0); Lymphocyte # 1.35 X10^3/ul (0.83-4.51); Lymphocyte % 28.1 % (19-41); Mean Corp Hgb Conc 32.2 g/dL (32-36); Mean Corpuscular Hgb 28.6 pg (27.0-32.0); Mean Corpuscular Volume 88.9 fL (81-99); Mean Platelet Vol. 9.4 fl (6.2-12.0); Monocyte# 0.39 X10^3/uL; Monocyte% 8.1 % (0-10); NRBC Flagged by Analyzer 0 % (0-5); Neutrophil # 2.81 X10^3/uL (2.7-7.7); Neutrophil % 58.6 % (47-70); Platelet Count 177 K/mm3 (150-450); RBC Distribution Width CV 12.9 % (11.6-14.6); RBC Distribution Width SD 42.2 fl (35.1-43.9); Red Blood Count 4.79 M/mm3 (4.2-5.4); White Blood Count 4.8 K/mm3 (4.4-11.0)
[2022-03-01 17:58] LABS: ALB/GLOB Ratio 1.4 RATIO (0.9-2.4); AST(SGOT) 29 U/L (15-37); Alanine Aminotransfer ALT/SGPT 28 U/L (13-56); Albumin, Serum 4.1 g/dL (3.2-5.0); Alkaline Phosphatase 77 U/L (45-117); Anion Gap 8 (5-15); BUN 13 mg/dL (7-18); BUN/Creat Ratio 15.7 RATIO (10-20); Calcium,Total 9.3 mg/dL (8.5-10.1); Chloride 103 mmol/L (98-107); Creatinine, Serum 0.83 mg/dL (0.55-1.02); EST Glomerular Filtration Rate 73 mL/min (>60); Est Glom Filt Rate - Afr Amer 88 mL/min (>60); Glucose 83 mg/dL (74-106); Potassium 4.5 mmol/L (3.5-5.1); Protein, Total 7.1 g/dL (6.4-8.2); Sodium Level 138 mmol/L (136-145)
== END | disposition home or self-care (01) ==
LOC: MTLAB 14:42
PROVIDERS: PCP Family Medicine; Referring Provider Internal Medicine Rheumatology; Visit Provider Internal Medicine Rheumatology
DX: L40.59 Other psoriatic arthropathy (principal); M15.9 Polyosteoarthritis, unspecified; M21.40 Flat foot [pes planus] (acquired), unspecified foot; K76.0 Fatty (change of) liver, not elsewhere classified; L71.9 Rosacea, unspecified; Z85.3 Personal history of malignant neoplasm of breast
CPT/HCPCS: 36415; 80053; 85025

== ENCOUNTER → 2022-06-01 | Outpatient (CLI) | payer BC, SELFPAY ==
[2022-06-01 17:38] LABS: Absolute Lymphocyte Count 1.21 X10^3/uL (0.83-4.51); Absolute Neutrophil Count 3.2 X10^3/uL (2.0-7.7); Basophil# 0.06 X10^3/uL; Basophil% 1.2 % (0-1); Hematocrit 40.9 % (37-47); Hemoglobin 13.2 g/dL (12.0-15.0); Lymphocyte # 1.21 X10^3/ul (0.83-4.51); Lymphocyte % 24.5 % (19-41); Mean Corp Hgb Conc 32.3 g/dL (32-36); Mean Corpuscular Hgb 28.6 pg (27.0-32.0); Mean Corpuscular Volume 88.5 fL (81-99); Mean Platelet Vol. 9.3 fl (6.2-12.0); Monocyte# 0.31 X10^3/uL; Monocyte% 6.3 % (0-10); NRBC Flagged by Analyzer 0 % (0-5); Neutrophil # 3.15 X10^3/uL (2.7-7.7); Neutrophil % 63.8 % (47-70); Platelet Count 184 K/mm3 (150-450); RBC Distribution Width CV 13.1 % (11.6-14.6); Red Blood Count 4.62 M/mm3 (4.2-5.4); White Blood Count 4.9 K/mm3 (4.4-11.0)
[2022-06-01 18:02] LABS: ALB/GLOB Ratio 1.1 RATIO (0.9-2.4); AST(SGOT) 27 U/L (15-37); Alanine Aminotransfer ALT/SGPT 26 U/L (13-56); Albumin, Serum 3.9 g/dL (3.2-5.0); Alkaline Phosphatase 69 U/L (45-117); Anion Gap 6 (5-15); BUN 14 mg/dL (7-18); BUN/Creat Ratio 13.9 RATIO (10-20); Calcium,Total 9.6 mg/dL (8.5-10.1); Chloride 103 mmol/L (98-107); Creatinine, Serum 1.01 mg/dL (0.55-1.02); EST Glomerular Filtration Rate 58 mL/min (>60); Est Glom Filt Rate - Afr Amer 70 mL/min (>60); Globulin 3.4 g/dL (2.2-4.2); Glucose 102 mg/dL (74-106); Potassium 3.9 mmol/L (3.5-5.1); Protein, Total 7.3 g/dL (6.4-8.2); Sodium Level 139 mmol/L (136-145)
== END | disposition home or self-care (01) ==
LOC: MTLAB 15:38
PROVIDERS: PCP Family Medicine; Visit Provider Internal Medicine Rheumatology
DX: L40.59 Other psoriatic arthropathy (principal); M15.9 Polyosteoarthritis, unspecified
CPT/HCPCS: 36415; 80053; 85025

== ENCOUNTER → 2022-08-04 | Outpatient (CLI) | payer BC, SELFPAY ==
[2022-08-04 18:09] LABS: Absolute Lymphocyte Count 1.38 X10^3/uL (0.83-4.51); Absolute Neutrophil Count 4.2 X10^3/uL (2.0-7.7); Basophil# 0.04 X10^3/uL; Basophil% 0.6 % (0-1); Eosinophil# 0.13 X10^3/uL; Eosinophils% 2.1 % (0-5); Hematocrit 39.6 % (37-47); Hemoglobin 12.6 g/dL (12.0-15.0); Lymphocyte # 1.38 X10^3/ul (0.83-4.51); Mean Corp Hgb Conc 31.8 g/dL (32-36); Mean Platelet Vol. 9.7 fl (6.2-12.0); Monocyte# 0.46 X10^3/uL; Monocyte% 7.3 % (0-10); NRBC Flagged by Analyzer 0 % (0-5); Neutrophil # 4.24 X10^3/uL (2.7-7.7); Neutrophil % 67.7 % (47-70); Platelet Count 191 K/mm3 (150-450); RBC Distribution Width CV 14.3 % (11.6-14.6); RBC Distribution Width SD 47.8 fl (35.1-43.9); Red Blood Count 4.35 M/mm3 (4.2-5.4); White Blood Count 6.3 K/mm3 (4.4-11.0)
[2022-08-04 18:53] LABS: ALB/GLOB Ratio 1.3 RATIO (0.9-2.4); AST(SGOT) 25 U/L (15-37); Alanine Aminotransfer ALT/SGPT 28 U/L (13-56); Albumin, Serum 3.8 g/dL (3.2-5.0); Alkaline Phosphatase 76 U/L (45-117); Anion Gap 6 (5-15); BUN 15 mg/dL (7-18); BUN/Creat Ratio 16.2 RATIO (10-20); Calcium,Total 9.5 mg/dL (8.5-10.1); Chloride 107 mmol/L (98-107); Creatinine, Serum 0.93 mg/dL (0.55-1.02); EST Glomerular Filtration Rate 64 mL/min (>60); Est Glom Filt Rate - Afr Amer 77 mL/min (>60); Glucose 101 mg/dL (74-106); Potassium 4.1 mmol/L (3.5-5.1); Protein, Total 6.8 g/dL (6.4-8.2); Sodium Level 138 mmol/L (136-145)
== END | disposition home or self-care (01) ==
LOC: MTLAB 16:28
PROVIDERS: PCP Family Medicine; Referring Provider Internal Medicine Rheumatology; Visit Provider Internal Medicine Rheumatology
DX: L40.59 Other psoriatic arthropathy (principal)
CPT/HCPCS: 36415; 80053; 85025

== ENCOUNTER → 2022-09-01 | Outpatient (CLI) | payer BC, SELFPAY ==
[2022-09-01 18:26] LABS: Bacteria 0 SEEN /hpf (None Seen); Mucous, Urine 0 SEEN /hpf (<or=2+); Red Blood Cells-Urine 0 SEEN /hpf (0-5); White Blood Cells 0 SEEN /hpf (0-5)
[2022-09-01 18:38] LABS: Color, Urine Yellow (Yellow); Glucose, Dipstick Normal (Normal); Ketone-Dipstick 15 mg/dl (Negative); Leukocyte Esterase-Dipstick Negative /ul (Negative); Nitrite-Dipstick Negative (Negative); Occult Blood-Urine Negative /ul (Negative); Protein-Dipstick Negative (Negative); Urine Bilirubin Dipstick Negative (Negative); Urine Clarity Clear (Clear); Urine Urobilinogen Normal (Normal)
[2022-09-01 18:50] LABS: Squamous Epithelial Cells - UA 0-5 SEEN /hpf (5-10)
== END | disposition home or self-care (01) ==
PROVIDERS: PCP Family Medicine; Visit Provider Physician Assistant Surgical
DX: R30.0 Dysuria (principal)
CPT/HCPCS: 81001; 87086

== ENCOUNTER → 2022-10-04 | Outpatient (CLI) | payer BC, SELFPAY ==
[2022-10-04 17:40] LABS: Absolute Lymphocyte Count 1.34 X10^3/uL (0.83-4.51); Absolute Neutrophil Count 3.5 X10^3/uL (2.0-7.7); Basophil# 0.04 X10^3/uL; Basophil% 0.7 % (0-1); Eosinophil# 0.15 X10^3/uL; Eosinophils% 2.8 % (0-5); Hematocrit 41.5 % (37-47); Hemoglobin 13.1 g/dL (12.0-15.0); Lymphocyte # 1.34 X10^3/ul (0.83-4.51); Lymphocyte % 25.1 % (19-41); Mean Corp Hgb Conc 31.6 g/dL (32-36); Mean Corpuscular Hgb 29.2 pg (27.0-32.0); Mean Corpuscular Volume 92.6 fL (81-99); Mean Platelet Vol. 9.4 fl (6.2-12.0); Monocyte# 0.31 X10^3/uL; Monocyte% 5.8 % (0-10); NRBC Flagged by Analyzer 0 % (0-5); Neutrophil # 3.48 X10^3/uL (2.7-7.7); Neutrophil % 65.2 % (47-70); Platelet Count 204 K/mm3 (150-450); RBC Distribution Width CV 13.6 % (11.6-14.6); Red Blood Count 4.48 M/mm3 (4.2-5.4); White Blood Count 5.3 K/mm3 (4.4-11.0)
[2022-10-04 17:46] LABS: ALB/GLOB Ratio 1.1 RATIO (0.9-2.4); AST(SGOT) 33 U/L (15-37); Alanine Aminotransfer ALT/SGPT 29 U/L (13-56); Albumin, Serum 3.9 g/dL (3.2-5.0); Alkaline Phosphatase 75 U/L (45-117); Anion Gap 5 (5-15); BUN 11 mg/dL (7-18); BUN/Creat Ratio 11.7 RATIO (10-20); Calcium,Total 9.5 mg/dL (8.5-10.1); Chloride 104 mmol/L (98-107); Creatinine, Serum 0.94 mg/dL (0.55-1.02); EST Glomerular Filtration Rate 63 mL/min (>60); Est Glom Filt Rate - Afr Amer 76 mL/min (>60); Globulin 3.6 g/dL (2.2-4.2); Glucose 80 mg/dL (74-106); Potassium 3.9 mmol/L (3.5-5.1); Protein, Total 7.5 g/dL (6.4-8.2); Sodium Level 138 mmol/L (136-145)
== END | disposition home or self-care (01) ==
LOC: MTLAB 15:44
PROVIDERS: PCP Family Medicine; Referring Provider Internal Medicine Rheumatology; Visit Provider Internal Medicine Rheumatology
DX: L40.59 Other psoriatic arthropathy (principal); Z79.899 Other long term (current) drug therapy
CPT/HCPCS: 36415; 80053; 85025

== ENCOUNTER → 2022-12-06 | Outpatient (CLI) | payer BC, SELFPAY ==
[2022-12-06 15:15] LABS: Absolute Lymphocyte Count 0.96 X10^3/uL (0.83-4.51); Basophil# 0.05 X10^3/uL; Basophil% 1.1 % (0-1); Eosinophil# 0.17 X10^3/uL; Eosinophils% 3.8 % (0-5); Hematocrit 42.4 % (37-47); Hemoglobin 13.4 g/dL (12.0-15.0); Lymphocyte # 0.96 X10^3/ul (0.83-4.51); Lymphocyte % 21.3 % (19-41); Mean Corp Hgb Conc 31.6 g/dL (32-36); Mean Corpuscular Hgb 29.1 pg (27.0-32.0); Mean Platelet Vol. 9.8 fl (6.2-12.0); Monocyte# 0.31 X10^3/uL; Monocyte% 6.9 % (0-10); NRBC Flagged by Analyzer 0 % (0-5); Neutrophil # 3.01 X10^3/uL (2.7-7.7); Neutrophil % 66.7 % (47-70); Platelet Count 199 K/mm3 (150-450); RBC Distribution Width CV 13.5 % (11.6-14.6); RBC Distribution Width SD 45.6 fl (35.1-43.9); Red Blood Count 4.61 M/mm3 (4.2-5.4); White Blood Count 4.5 K/mm3 (4.4-11.0)
[2022-12-06 15:48] LABS: ALB/GLOB Ratio 1.1 RATIO (0.9-2.4); AST(SGOT) 32 U/L (15-37); Alanine Aminotransfer ALT/SGPT 32 U/L (13-56); Alkaline Phosphatase 74 U/L (45-117); Anion Gap 3 (5-15); BUN 10 mg/dL (7-18); BUN/Creat Ratio 11.1 RATIO (10-20); Calcium,Total 9.9 mg/dL (8.5-10.1); Chloride 105 mmol/L (98-107); EST Glomerular Filtration Rate 66 mL/min (>60); Est Glom Filt Rate - Afr Amer 80 mL/min (>60); Globulin 3.5 g/dL (2.2-4.2); Glucose 91 mg/dL (74-106); Potassium 4.2 mmol/L (3.5-5.1); Protein, Total 7.5 g/dL (6.4-8.2); Sodium Level 138 mmol/L (136-145)
== END | disposition home or self-care (01) ==
LOC: LAB 12:33
PROVIDERS: PCP Family Medicine; Visit Provider Internal Medicine Rheumatology
DX: L40.59 Other psoriatic arthropathy (principal); Z79.899 Other long term (current) drug therapy
CPT/HCPCS: 36415; 80053; 85025

== ENCOUNTER → 2023-03-03 | Outpatient (CLI) | payer BC, SELFPAY ==
[2023-03-03 17:40] LABS: Absolute Lymphocyte Count 1.16 X10^3/uL (0.83-4.51); Absolute Neutrophil Count 3.3 X10^3/uL (2.0-7.7); Basophil# 0.04 X10^3/uL; Basophil% 0.8 % (0-1); Eosinophil# 0.11 X10^3/uL; Eosinophils% 2.1 % (0-5); Hematocrit 37.8 % (37-47); Hemoglobin 12.5 g/dL (12.0-15.0); Lymphocyte # 1.16 X10^3/ul (0.83-4.51); Lymphocyte % 22.6 % (19-41); Mean Corp Hgb Conc 33.1 g/dL (32-36); Mean Corpuscular Hgb 29.8 pg (27.0-32.0); Mean Corpuscular Volume 90.2 fL (81-99); Mean Platelet Vol. 9.3 fl (6.2-12.0); Monocyte# 0.47 X10^3/uL; Monocyte% 9.1 % (0-10); NRBC Flagged by Analyzer 0 % (0-5); Neutrophil # 3.32 X10^3/uL (2.7-7.7); Neutrophil % 64.6 % (47-70); Platelet Count 171 K/mm3 (150-450); RBC Distribution Width CV 14.5 % (11.6-14.6); RBC Distribution Width SD 46.5 fl (35.1-43.9); Red Blood Count 4.19 M/mm3 (4.2-5.4); White Blood Count 5.1 K/mm3 (4.4-11.0)
[2023-03-03 18:36] LABS: ALB/GLOB Ratio 1.1 RATIO (0.9-2.4); AST(SGOT) 20 U/L (15-37); Alanine Aminotransfer ALT/SGPT 24 U/L (13-56); Albumin, Serum 3.6 g/dL (3.2-5.0); Alkaline Phosphatase 68 U/L (45-117); Anion Gap 3 (5-15); BUN 15 mg/dL (7-18); BUN/Creat Ratio 17.8 RATIO (10-20); Calcium,Total 9.7 mg/dL (8.5-10.1); Chloride 104 mmol/L (98-107); Creatinine, Serum 0.84 mg/dL (0.55-1.02); EST Glomerular Filtration Rate 71 mL/min (>60); Est Glom Filt Rate - Afr Amer 86 mL/min (>60); Globulin 3.3 g/dL (2.2-4.2); Glucose 80 mg/dL (74-106); Potassium 4.2 mmol/L (3.5-5.1); Protein, Total 6.9 g/dL (6.4-8.2); Sodium Level 137 mmol/L (136-145)
== END | disposition home or self-care (01) ==
LOC: MTLAB 16:32
PROVIDERS: PCP Family Medicine; Referring Provider Internal Medicine Rheumatology; Visit Provider Internal Medicine Rheumatology
DX: L40.59 Other psoriatic arthropathy (principal); K76.0 Fatty (change of) liver, not elsewhere classified; Z79.899 Other long term (current) drug therapy
CPT/HCPCS: 36415; 80053; 85025

== ENCOUNTER → 2023-04-06 | Outpatient (CLI) | payer MEDICARE, SELFPAY | END | disposition home or self-care (01) | LOC: LABSPEC 15:03 | PROVIDERS: PCP Family Medicine; Visit Provider Physician Assistant Surgical | DX: N39.0 Urinary tract infection, site not specified (principal) | CPT/HCPCS: 87086; 87088 ==

== ENCOUNTER → 2023-05-11 | Outpatient (CLI) | payer MEDICARE, OTHER, SELFPAY ==
--- NOTE | 2023-05-11 09:45 | ECHOD_ITS ---
Reason For Study: ATRIAL FIBRILLATION Procedure This was a 2D Doppler, Color Flow transthoracic echocardiogram. Myocardial strain analysis was performed in this exam to aid in the assessment of cardiac function. Exam performed in department. Left Ventricle Normal LV size. Left ventricular systolic function is normal. The estimated ejection fraction is 65 %. No regional wall motion abnormalities noted. Right Ventricle Normal RV size. Normal systolic function. Atria Normal left atrium. Normal right atrium. Mitral Valve Normal mitral valve. Tricuspid Valve Normal tricuspid valve. Mild tricuspid valve insufficiency. Pulmonary artery systolic pressure is 24 mmHg. Aortic Valve Trisinus/trileaflet aortic valve. Pulmonic Valve Normal pulmonic valve. Great Vessels Normal aortic root. The pulmonary artery is normal size. Normal inferior vena cava. Pericardium/Pleural No pericardial effusion. MMode/2D Measurements & Calculations LVIDd: 4.0 cm IVSd: 1.0 cm Ao root diam: 2.8 cm LVIDs: 2.6 cm LVPWd: 1.1 cm RVDd: 3.0 cm FS: 35.3 % LAV(MOD-bp): 45.3 ml LVAd ap4: 26.4 cm2 LVAd ap2: 22.6 cm2 LAV(MOD-bp) Indexed: 21.9 ml/m2 LVLd ap4: 7.4 cm LVLd ap2: 7.1 cm LAV(MOD-sp2): 54.1 ml EDV(MOD-sp4): 77.3 ml EDV(MOD-sp2): 63.0 ml LAV(MOD-sp4): 38.8 ml EDV(sp4-el): 79.6 ml EDV(sp2-el): 61.2 ml LVAs ap4: 14.1 cm2 LVAs ap2: 12.0 cm2 LVLs ap4: 6.4 cm LVLs ap2: 5.9 cm ESV(MOD-sp4): 26.0 ml ESV(MOD-sp2): 21.0 ml ESV(sp4-el): 26.4 ml ESV(sp2-el): 20.5 ml EF(MOD-sp4): 66.4 % EF(MOD-sp2): 66.7 % EF(sp4-el): 66.8 % SV(MOD-sp4): 51.3 ml SV(MOD-sp2): 42.0 ml SV(sp4-el): 53.2 ml LA dimension(2D): 3.9 cm LA A4 area: 15.1 cm2 RA A4 area: 15.6 cm2 TAPSE: 1.9 cm Time Measurements MV dec time: 0.16 sec Doppler Measurements & Calculations MV E max marvin: 94.9 cm/sec Lat Peak E' Marvin: 8.0 cm/sec Med Peak E' Marvin: 7.3 cm/sec MV A max marvin: 64.1 cm/sec E/E' lat: 11.8 E/E' med: 13.1 MV E/A: 1.5 MV dec slope: 593.0 cm/sec2 Ao V2 max: 112.2 cm/sec LV V1 max: 98.6 cm/sec Ao max P.1 mmHg LV V1 max P.9 mmHg Ao V2 mean: 78.8 cm/sec LV V1 mean P.3 mmHg Ao mean P.8 mmHg LV V1 mean: 70.9 cm/sec Ao V2 VTI: 31.0 cm LV V1 VTI: 25.3 cm AV (velocity ratio): 0.82 PA V2 max: 104.9 cm/sec TR max marvin: 233.1 cm/sec PA V2 mean: 69.8 cm/sec TR max P.7 mmHg ECHO/Echo Complete Interpretation Summary Normal LV size. Left ventricular systolic function is normal. The estimated ejection fraction is 65 %. The global longitudinal strain is normal. The global longitudinal strain = -17 % (normal). Ordering Physician: Aly Paz Referring Physician: Jhonatan Abbott Performed By: Ct Anders, VU, RVT
--- OUTSIDE RECORDS SUMMARY | 2023-05-11 10:46 | XMS RPT_ITS | CCD ---
Author Name Unknown Address [address] [place] [address] Organization [facility] Care Team Providers Care Supervisor Advice Name Role Phone Alessio De La Cruz MD Unavailable [phone] STEER, EVAN Unavailable Unavailable STEER, EVAN Unavailable Unavailable NO REFERRING Unavailable Unavailable STEER, EVAN H Unavailable Unavailable STEER, EVAN H Unavailable Unavailable Alessio Gomez MD Primary Care Provider Alessio Gomez MD Primary Care Provider Alessio Gomez MD Primary Care Provider Alessio Gomez MD Primary Care Provider MICHELLE ISAAC Attending Unavailable TON NI Referring Unavailable ALESSIO GOMEZ Primary Care Unavailable ALESSIO GOMEZ Primary Care Unavailable TON NI Attending Unavailable ALESSIO GOMEZ Primary Care Unavailable BENJAMÍN BARRIOS Attending Unavailable BENJAMÍN BARRIOS Referring Unavailable ALESSIO GOMEZ Primary Care Unavailable BENJAMÍN BARRIOS Attending Unavailable COREY MORRISON Referring Unava ilable ALESSIO GOMEZ Primary Care Unavailable DANIA, FREEMAN Referring Unavailable ELDERALESSIO BOCANEGRA Primary Care Unavailable DANIA, FREEMAN Referring Unavailable ALESSIO GOMEZ Primary Care Unavailable DANIA FREEMAN Attending Unavailable ALESSIO GOMEZ Primary Care Unavailable ALESSIO GOMEZ Referring Unavailable ALESSIO GOMEZ Primary Care Unavailable ALESSIO GOMEZ Referring Unavailable ALESSIO GOMEZ Primary Care Unavailable TON NI Referring Unavailable ALESSIO GOMEZ Primary Care Unavailable Allergies Allergy Classification Reported Allergen(s) Allergy Type Date of Onset Reaction(s) Facility (1 source) penicillin drug allergy 6 [facility] Work Phone: (20 sources) Penicillins; Translations: [PENICILLINS] Propensity to adverse reactions to drug (disorder) 5 [facility] Other [place] [facility] Medications Current Medications Medication Drug Class(es) Dates Sig (Normalized) Sig (Original) azithromycin 250 mg oral tablet (2 sources) Macrolide Antimicrobial Start: 11-10-2021 End: 11-15-2021 azithromycin (ZITHROMAX Z-SURINDER) 250 mg tablet Indications: URI, acute Take 2 tablets day one, then, 1 tablet daily until gone. 6 tablet 0 11/10/2021 11/15/2021 Active Completed/Discontinued Medications Medication Drug Class(es) Dates Sig (Normalized) Sig (Original) apixaban (20 sources) Factor Xa Inhibitor apixaban (EL IQUIS ORAL) Take by mouth. Per office visit note 02/14/2019 0 Active Problems Active Problems Problem Classification Problem Date Documented Da te Episodic/Chronic Acquired foot deformities (3 sources) Acquired hallux rigidus; Translations: [Hallux valgus AND bunion] Onset: 02-01-2016 02-01-2016 Chronic Acute bronchitis (1 source) Acute bronchitis; Translations: [Acute bronchitis, unspecified] Episodic Adjustment disorders (20 sources) Insomnia disorder related to another mental disorder; Translations: [Adjustment disorder with depressed mood] Onset: 10-21-2014 10-21-2014 Chronic Anxiety disorders (20 sources) Anxiety; Translations: [Other specified anxiety disorders] Onset: 05-05-2017 05-05-2017 Chronic Cancer of breast (20 sources) Intraductal carcinoma in situ of breast; Translations: [Intraductal carcinoma in situ of unspecified breast] Onset: 07-23-2013 07-23-2013 Chronic Cardiac dysrhythmias (20 sources) Atrial fibrillation; Translations: [Unspecified atrial fibrillation] Onset: 11-12-2018 11-12-2018 Chronic Disorders of lipid metabolism (20 sources) Hyperlipidemia; Translations: [Hyperlipidemia, unspecified] Onset: 02-03-2011 10-21-2016 Chronic Disorders of teeth and jaw (1 source) Toothache; Translations: [Other specified disorders of teeth and supporting structures] 12-10-2022 Episodic E Codes: Fall (1 source) Fall; Translations: [Unspecified fall, initial encounter] Episodic Esophageal disorders (1 source) Stricture of esophagus; Translations: [Esophageal obstruction] Chronic Joint disorders and dislocations; trauma-related (20 sources) Degenerative rupture of medial meniscus of right knee; Translations: [Derangement of unspecified medial meniscus due to old tear or injury, right knee] Onset: 03-11-2015 03-11-2015 Chronic Menopausal disorders (20 sources) Atrophic vaginitis; Translations: [Postmenopausal atrophic vaginitis] Onset: 05-02-2008 05-02-2008 Chronic Miscellaneous mental health disorders (1 source) Insomnia due to other mental disorder; Translations: [Insomnia secondary to situational depression] Onset: 10-21-2014 Chronic Mycoses (1 source) Opportunistic mycosis; Translations: [Candidiasis, unspecified] Episodic Nonmalignant breast conditions (1 source) Inflammatory disorder of breast; Translations: [Mastitis without abscess] Episodic Osteoarthritis (20 sources) Unilateral primary osteoarthritis, left knee; Translations: [Unilateral primary osteoarthritis, right knee] Onset: 03-11-2015 08-18-2017 Chronic Other congenital anomalies (1 source) Other congenital malformations of lower limb(s), including pelvic girdle; Translations: [Other congenital malformations of lower limb(s), including pelvic girdle] Onset: 02-01-2016 02-01-2016 Chronic Other connective tissue disease (2 sources) History of total knee arthroplasty; Translations: [Presence of right artificial knee joint] Onset: 11-30-2016 03-24-2017 Chronic Other gastrointestinal disorders (1 source) Dysphagia; Translations: [Dysphagia, unspecified] Episodic Other gastrointestinal disorders (1 source) Constipation; Translations: [Constipation, unspecified] Episodic Other hereditary and degenerative nervous system conditions (20 sources) Restless legs; Translations: [Restless legs syndrome] Onset: 10-21-2014 10-21-2014 Chronic Other hereditary and degenerative nervous system conditions (1 source) Restless legs syndrome; Translations: [Restless legs syndrome] Onset: 10-21-2014 Chronic Other inflammatory condition of skin (20 sources) Psoriasis; Translations: [Psoriasis, unspecified] 02-02-2010 Chronic Other inflammatory condition of skin (20 sources) Psoriatic arthritis; Translations: [Arthropathic psoriasis, unspecified] Onset: 03-08-2010 03-08-2010 Chronic Other inflammatory condition of skin (1 source) Arthropathic psoriasis, unspecified; Translations: [Psoriatic arthritis (HCC)] Onset: 03-08-2010 Chronic Other liver diseases (11 sources) Non-alcoholic fatty liver; Translations: [Fatty (change of) liver, not elsewhere classified] Onset: 02-03-2011 02-03-2011 Chronic Other liver diseases (13 sources) Fatty (change of) liver, not elsewhere classified; Translations: [Other chronic nonalcoholic liver disease] Onset: 02-03-2011 02-03-2011 Chronic Other lower respiratory disease (3 sources) Cough; Translations: [Acute cough] Episodic Other nervous system disorders (1 source) Paresthesia of foot ; Translations: [Anesthesia of skin] Episodic Other non-traumatic joint disorders (1 source) Pain in right knee; Translations: [Pain in joint, lower leg] Episodic Other nutritional; endocrine; and metabolic disorders (20 sources) Metabolic syndrome X; Translations: [Metabolic syndrome] Onset: 12-18-2007 12-18-2007 Chronic Other nutritional; endocrine; and metabolic disorders (20 sources) Obesity; Translations: [Obesity, unspecified] Onset: 04-06-2012 04-06-2012 Chronic Other screening for suspected conditions (not mental disorders or infectious disease) (9 sources) Patient encounter status; Translations: [Encounter for screening mammogram for malignant neoplasm of breast] Onset: 01-11-2022 Episodic Other skin disorders (1 source) Disorder of skin color; Translations: [Disorder of pigmentation, unspecified] Episodic Other upper respiratory disease (1 source) Loss of voice; Translations: [Aphonia] 05-10-2023 Episodic Other upper respiratory infections (2 sources) Acute upper respiratory infection; Translations: [Acute upper respiratory infection, unspecified] Episodic Superficial injury; contusion (1 source) Contusion of right breast; Translations: [Contusion of right breast, initial encounter] Episodic Unclassified (1 source) Other specified postprocedural states; Translations: [OTH SPECIFIED POSTPROCED] Onset: 11-30-2016 Past or Other Problems Problem Classification Problem Date Documented Da te Episodic/Chronic Acquired foot deformities (2 sources) Other acquired deformities of right foot; Translations: [Other acquired deformities of left foot] Onset: 02-01-2016 02-01-2016 Episodic Joint disorders and dislocations; trauma-related (1 source) Acute meniscal tear, medial; Translations: [Other tear of medial meniscus, current injury, unspecified knee, initial encounter] Onset: 07-03-2015 07-03-2015 Episodic Other aftercare (2 sources) technician terminal and repeater (current) use of aspirin; Translations: [Other care home (current) drug therapy] Onset: 11-30-2016 Episodic Other bone disease and musculoskeletal deformities (20 sources) Costal chondritis; Translations: [Chondrocostal junction syndrome [Tietze]] Onset: 03-06-2009 03-06-2009 Episodic Other bone disease and musculoskeletal deformities (20 sources) Senile osteopenia; Translations: [Other specified disorders of bone density and structure, unspecified site] Onset: 02-26-2021 02-26-2021 Episodic Other connective tissue disease (1 source) Tenosynovitis of foot; Translations: [Synovitis and tenosynovitis, unspecified] Onset: 02-01-2016 02-01-2016 Episodic Other gastrointestinal disorders (3 sources) Constipation, unspecified; Translations: [CONSTIPATION UNSPECIFIED] Onset: 11-30-2016 Episodic Other gastrointestinal disorders (20 sources) Oropharyngeal dysphagia; Translations: [Dysphagia, oropharyngeal phase] Onset: 07-15-2021 Episodic Other gastrointestinal disorders (1 source) Dysphagia, unspecified; Translations: [Dysphagia, unspecified type] Onset: 07-19-2022 Episodic Other gastrointestinal disorders (1 source) Dysphagia, oropharyngeal phase; Translations: [Oropharyngeal dysphagia] Onset: 07-15-2021 Episodic Other injuries and conditions due to external causes (2 sources) Injury of foot; Translations: [Unspecified injury of left lower leg, initial encounter] Onset: 02-01-2016 02-01-2016 Episodic Other nervous system disorders (1 source) Anesthesia of skin; Translations: [Numbness and tingling of foot] Onset: 04-22-2022 Episodic Other nervous system disorders (1 source) Paresthesia of skin; Translations: [Numbness and tingling of foot] Onset: 04-22-2022 Episodic Other skin disorders (1 source) Disorder of pigmentation, unspecified; Translations: [Discoloration of skin of finger] Onset: 04-22-2022 Episodic Skin and subcutaneous tissue infections (1 source) Cellulitis of lower leg; Translations: [Cellulitis of right lower limb] Onset: 12-05-2016 12-05-2016 Episodic Unclassified (1 source) Problem Results Test Name Value Interpretation Reference Range Facil ity Vital Signs Date Time Vital Sign Value Performing Clinician Facility 05-10-2023 15:19-0500 Body temperature 98.4 [degF] Ton Tannhof OVEN LOADER.WILDLIFE ECOLOGY PROFESSOR Work Phone: [facility] 05-10-2023 15:19-0500 Body weight 99.79 kg Ton Tannhof OVEN LOADER.WILDLIFE ECOLOGY PROFESSOR Work Phone: [facility] 05-10-2023 15:19-0500 Diastolic blood pressure 70 mm[Hg] Ton Tannhof OVEN LOADER.WILDLIFE ECOLOGY PROFESSOR Work Phone: [facility] 05-10-2023 15:19-0500 Heart rate 70 /min Ton Tannhof OVEN LOADER.WILDLIFE ECOLOGY PROFESSOR Work Phone: [facility] 05-10-2023 15:19-0500 Respiratory rate 16 /min Ton Tannhof OVEN LOADER.WILDLIFE ECOLOGY PROFESSOR Work Phone: [facility] 05-10-2023 15:19-0500 SaO2% (BldA) [Mass fraction] 97 % Ton Tannhof OVEN LOADER.WILDLIFE ECOLOGY PROFESSOR Work Phone: [facility] 05-10-2023 15:19-0500 Systolic blood pressure 116 mm[Hg] Ton Tannhof OVEN LOADER.WILDLIFE ECOLOGY PROFESSOR Work Phone: [facility] 12-10-2022 10:50-0400 Body temperature 97.59 [degF] Lisa Praisler-Wood OVEN LOADER.WILDLIFE ECOLOGY PROFESSOR Work Phone: [facility] 12-10-2022 10:50-0400 Body weight 98.43 kg Lisa Praisler-Wood OVEN LOADER.WILDLIFE ECOLOGY PROFESSOR Work Phone: [facility] 12-10-2022 10:50-0400 Diastolic blood pressure 78 mm[Hg] Lisa Praisler-Wood OVEN LOADER.WILDLIFE ECOLOGY PROFESSOR Work Phone: [facility] 12-10-2022 10:50-0400 Heart rate 74 /min Lisa Praisler-Wood OVEN LOADER.WILDLIFE ECOLOGY PROFESSOR Work Phone: [facility] 12-10-2022 10:50-0400 Respiratory rate 16 /min Lisa Praisler-Wood OVEN LOADER.WILDLIFE ECOLOGY PROFESSOR Work Phone: [facility] 12-10-2022 10:50-0400 Systolic blood pressure 122 mm[Hg] Lisa Praisler-Wood OVEN LOADER.WILDLIFE ECOLOGY PROFESSOR Work Phone: [facility] 11-30-2022 15:59-0400 Body height 163.5 cm Ton Tannhof OVEN LOADER.WILDLIFE ECOLOGY PROFESSOR Work Phone: [facility] 11-30-2022 15:59-0400 Body weight 96.62 kg Ton Tannhof OVEN LOADER.WILDLIFE ECOLOGY PROFESSOR Work Phone: [facility] 11-30-2022 15:59-0400 Diastolic blood pressure 64 mm[Hg] Ton Tannhof OVEN LOADER.WILDLIFE ECOLOGY PROFESSOR Work Phone: [facility] 11-30-2022 15:59-0400 Heart rate 79 /min Ton Tannhof OVEN LOADER.WILDLIFE ECOLOGY PROFESSOR Work Phone: [facility] 11-30-2022 15:59-0400 Respiratory rate 16 /min Ton Tannhof OVEN LOADER.WILDLIFE ECOLOGY PROFESSOR Work Phone: [facility] 11-30-2022 15:59-0400 SaO2% (BldA) [Mass fraction] 100 % Ton Tannhof OVEN LOADER.WILDLIFE ECOLOGY PROFESSOR Work Phone: [facility] 11-30-2022 15:59-0400 Systolic blood pressure 100 mm[Hg] Ton Tannhof OVEN LOADER.WILDLIFE ECOLOGY PROFESSOR Work Phone: [facility] 05-30-2022 14:15-0500 Body weight 99.79 kg Benjamín Barrios MD Work Phone: [facility] 05-30-2022 14:15-0500 Diastolic blood pressure 64 mm[Hg] Benjamín Barrios MD Work Phone: [facility] 05-30-2022 14:15-0500 Heart rate 76 /min Benjamín Barrios MD Work Phone: [facility] 05-30-2022 14:15-0500 Systolic blood pressure 133 mm[Hg] Benjamín Barrios MD Work Phone: [facility] 04-22-2022 10:06-0500 Body temperature 98.1 [degF] Freeman Dania OVEN LOADER.WILDLIFE ECOLOGY PROFESSOR Work Phone: [facility] 04-22-2022 10:06-0500 Body weight 101.15 kg Freeman Dania OVEN LOADER.WILDLIFE ECOLOGY PROFESSOR Work Phone: [facility] 04-22-2022 10:06-0500 Diastolic blood pressure 77 mm[Hg] Freeman Dania OVEN LOADER.WILDLIFE ECOLOGY PROFESSOR Work Phone: [facility] 04-22-2022 10:06-0500 Heart rate 79 /min Freeman Dania OVEN LOADER.WILDLIFE ECOLOGY PROFESSOR Work Phone: [facility] 04-22-2022 10:06-0500 Respiratory rate 16 /min Freeman Dania OVEN LOADER.WILDLIFE ECOLOGY PROFESSOR Work Phone: [facility] 04-22-2022 10:06-0500 SaO2% (BldA) [Mass fraction] 99 % Freeman Dania OVEN LOADER.WILDLIFE ECOLOGY PROFESSOR Work Phone: [facility] 04-22-2022 10:06-0500 Systolic blood pressure 122 mm[Hg] Freeman Dania OVEN LOADER.WILDLIFE ECOLOGY PROFESSOR Work Phone: [facility] 12-09-2021 14:32-0400 Body weight 102.51 kg Ton Dahlhof OVEN LOADER.WILDLIFE ECOLOGY PROFESSOR Work Phone: [facility] 12-09-2021 14:32-0400 Diastolic blood pressure 68 mm[Hg] Ton Tannhof OVEN LOADER.WILDLIFE ECOLOGY PROFESSOR Work Phone: [facility] 12-09-2021 14:32-0400 Heart rate 97 /min Ton Tannhof OVEN LOADER.WILDLIFE ECOLOGY PROFESSOR Work Phone: [facility] 12-09-2021 14:32-0400 Respiratory rate 16 /min Ton Tannhof OVEN LOADER.WILDLIFE ECOLOGY PROFESSOR Work Phone: [facility] 12-09-2021 14:32-0400 SaO2% (BldA) [Mass fraction] 98 % Ton Tannhof OVEN LOADER.WILDLIFE ECOLOGY PROFESSOR Work Phone: [facility] 12-09-2021 14:32-0400 Systolic blood pressure 118 mm[Hg] Ton Tannhof OVEN LOADER.WILDLIFE ECOLOGY PROFESSOR Work Phone: [facility] 11-22-2021 10:50-0400 Diastolic blood pressure 80 mm[Hg] Ton Tannhof OVEN LOADER.WILDLIFE ECOLOGY PROFESSOR Work Phone: [facility] 11-22-2021 10:50-0400 Heart rate 59 /min Ton Tannhof OVEN LOADER.WILDLIFE ECOLOGY PROFESSOR Work Phone: [facility] 11-22-2021 10:50-0400 Respiratory rate 16 /min Ton Tannhof OVEN LOADER.WILDLIFE ECOLOGY PROFESSOR Work Phone: [facility] 11-22-2021 10:50-0400 SaO2% (BldA) [Mass fraction] 100 % Ton Tannhof OVEN LOADER.WILDLIFE ECOLOGY PROFESSOR Work Phone: [facility] 11-22-2021 10:50-0400 Systolic blood pressure 118 mm[Hg] Ton Tannhof OVEN LOADER.WILDLIFE ECOLOGY PROFESSOR Work Phone: [facility] 11-12-2021 15:50-0400 Body temperature 98.1 [degF] Leia Tatum OVEN LOADER.WILDLIFE ECOLOGY PROFESSOR Work Phone: [facility] 11-12-2021 15:50-0400 Body weight 100.15 kg Leia Tatum OVEN LOADER.WILDLIFE ECOLOGY PROFESSOR Work Phone: [facility] 11-12-2021 15:50-0400 Diastolic blood pressure 76 mm[Hg] Leia Tatum OVEN LOADER.WILDLIFE ECOLOGY PROFESSOR Work Phone: [facility] 11-12-2021 15:50-0400 Heart rate 88 /min Leia Tatum OVEN LOADER.WILDLIFE ECOLOGY PROFESSOR Work Phone: [facility] 11-12-2021 15:50-0400 Respiratory rate 18 /min Leia Tatum OVEN LOADER.WILDLIFE ECOLOGY PROFESSOR Work Phone: [facility] 11-12-2021 15:50-0400 SaO2% (BldA) [Mass fraction] 97 % Leia Tatum OVEN LOADER.WILDLIFE ECOLOGY PROFESSOR Work Phone: [facility] 11-12-2021 15:50-0400 Systolic blood pressure 118 mm[Hg] Leia Tatum OVEN LOADER.WILDLIFE ECOLOGY PROFESSOR Work Phone: [facility] 11-10-2021 17:47-0400 Body weight 101.15 kg Tonshankar Dahlhof OVEN LOADER.WILDLIFE ECOLOGY PROFESSOR Work Phone: [facility] 11-10-2021 17:47-0400 Diastolic blood pressure 80 mm[Hg] Ton Tannhof OVEN LOADER.WILDLIFE ECOLOGY PROFESSOR Work Phone: [facility] 11-10-2021 17:47-0400 Heart rate 84 /min Ton Tannhof OVEN LOADER.WILDLIFE ECOLOGY PROFESSOR Work Phone: [facility] 11-10-2021 17:47-0400 Respiratory rate 20 /min Ton Tannhof OVEN LOADER.WILDLIFE ECOLOGY PROFESSOR Work Phone: [facility] 11-10-2021 17:47-0400 SaO2% (BldA) [Mass fraction] 98 % Ton Tannhof OVEN LOADER.WILDLIFE ECOLOGY PROFESSOR Work Phone: [facility] 11-10-2021 17:47-0400 Systolic blood pressure 122 mm[Hg] Ton Tannhof OVEN LOADER.WILDLIFE ECOLOGY PROFESSOR Work Phone: [facility] 07-15-2021 13:53-0400 Body height 165.7 cm Corey Morrison MD Work Phone: [facility] 07-15-2021 13:53-0400 Body temperature 97.81 [degF] Corey Morrison MD Work Phone: [facility] 07-15-2021 13:53-0400 Body weight 102.11 kg Corey Morrison MD Work Phone: [facility] 07-15-2021 13:53-0400 Diastolic blood pressure 58 mm[Hg] Corey Morrison MD Work Phone: [facility] 07-15-2021 13:53-0400 Heart rate 57 /min Corey Morrison MD Work Phone: [facility] 07-15-2021 13:53-0400 Systolic blood pressure 127 mm[Hg] Corey Morrison MD Work Phone: [facility] NEGATED: Highlighted [id number] 08:55-0400 BMI (Body Mass Index) 37.26 kg/m2 Kimberly Reese BETTY [facility] Work Phone: NEGATED: Highlighted [id number] 08:55-0400 BP Diastolic 63 mm[Hg] Kimberly Reese BETTY [facility] Work Phone: NEGATED: Highlighted [id number] 08:55-0400 BP Systolic 102 mm[Hg] Kimberly Reese PERSONAL FINANCIAL PLANNER [facility] Work Phone: NEGATED: Highlighted [id number] 08:55-0400 Height 167.64 cm Kimberly Reese LPN [facility] Work Phone: NEGATED: Highlighted [id number] 08:55-0400 Height 168 cm Kimberly Reese LPN [facility] Work Phone: NEGATED: Highlighted [id number] 08:55-0400 Pulse (Heart Rate) 52 /min Kimberly Reese LPN [facility] Work Phone: NEGATED: Highlighted [id number] 08:55-0400 Weight 104.33 kg Kimberly Reese LPN [facility] Work Phone: NEGATED: Highlighted [id number] 08:55-0400 Weight 105 kg Kimberly Reese LPN [facility] Work Phone: Encounters Encounter Date Encounter Type Care Provider Facility Start: 05-10-2023 End: 05-10-2023 Patient encounter procedure Ton Ni APRN.WILDLIFE ECOLOGY PROFESSOR Work Phone: [facility] [place] Procedures Date Procedure Procedure Detail Performing Clinician Start: 12-28-2022 Screening mammograph y bi 2-view breast inc cad Ton Last BRISENO.WILDLIFE ECOLOGY PROFESSOR Work Phone: Start: 02-23-2022 End: 02-23-2022 Mammography Alessio Gomez MD Work Phone: Start: 01-11-2022 Mammography Alessio bocanegra MD Work Phone: Start: 01-01-2021 Mammography Corey reo MD Work Phone: Start: 09-19-2019 Colonoscopy Corey roe MD Work Phone: Start: 08-18-2017 End: 08-18-2017 Blood pressure within normal parameters - no follow-up required Alessio De La Cruz MD Work Phone: Start: 08-18-2017 End: 08-18-2017 BMI documented as above normal parameters - follow-up documented Alessio De La Cruz MD Work Phone: Start: 08-18-2017 End: 08-18-2017 Current medications documented Alessio De La Cruz MD Work Phone: Start: 08-18-2017 End: 08-18-2017 Drain/inject, joint/bursa Alessio alejandra MD Work Phone: Start: 08-18-2017 End: 08-18-2017 Osteoarthritis assess Alessio De La Cruz MD Work Phone: Start: 08-18-2017 End: 08-18-2017 Pain assessment documented as positive - follow-up documented Alessio De La Cruz MD Work Phone: Start: 08-18-2017 End: 08-18-2017 Tobacco non-user Alessio De La Cruz MD Work Phone: Start: 08-18-2017 End: 08-18-2017 X-ray exam of knee, 3 Alesiso De La Cruz MD Work Phone: Start: 11-07-2016 Lipid 1996 panel - S ria or Plasma Lisa Villarreal APRN.WILDLIFE ECOLOGY PROFESSOR Work Phone: Plan of Treatment Date Care Activity Detail Author Start: 09-18-2029 Colonoscopy COLONOSCOPY [facility] Start: 09-18-2029 COLORECTAL CANCER SCREENING COLORECTAL CANCER SCREENING [facility] Start: 09-18-2029 Screening for malign ant neoplasm of colon [facility] Start: 04-22-2025 DIABETES SCREEN DIABETES SCREEN [facility] Start: 04-22-2025 Diabetes Screening Diabetes Screenin g [facility] Start: 12-29-2023 Mammography Mammogram Screening [facility] Start: 12-29-2023 Screening for malign ant neoplasm of breast Mammogram Screening [facility] Start: 12-01-2023 COVID-19 VACCINE (#1) COVID-19 VACCI NE (#1) [facility] Immunizations Immunization Date Immunization Notes Care Provider Fa suellenty 02-14-2019 pneumococcal conjuga te vaccine, 13 valent Corey Morrison MD Work Phone: [facility] 12-24-2018 influenza virus vaccine, unspecified formulation Lisa Villarreal APRN.WILDLIFE ECOLOGY PROFESSOR Work Phone: [facility] 04-16-2013 tetanus toxoid, reduced diphtheria toxoid, and acellular pertussis vaccine, adsorbed Corey Morrison MD Work Phone: [facility] No information available. Kimberly Reese LPN [facility] Work Phone: Payers Date Payer Category Payer Unknown [employer] PPO [id number] 2019-Present [phone] [address] [place] [id number] PPO [id number] 2019 Unknown [employer] PPO [id number] 2019-Present [phone] [address] [place] [address] PPO [id number] 2019 Unknown [id number] 2018 Medicare MEDICARE MEDICAR E A AND B [id number] 2018-Present [phone] [place] [address] Medicare [id number] Unknown [id number] Social History Date Type Detail Facility Start: 08-18-2017 End: 08-18-2017 Assertion Unknown if ever smoked [facility] Work Phone: Start: 11-10-2021 Tobacco smoking status NHIS Never smoked tobacco [facility] Start: 07-15-2021 End: 05-10-2023 Alcohol intake Current non-drinker of alcohol (finding) [facility] Start: 1955 Sex Assigned At Female [facility] Start: 07-05-2021 End: 01-11-2022 Exposure to SARS-CoV-2 (event) Not sure [facility] Start: 11-10-2021 Tobacco use and exposure Smokeless tobacco non-user [facility] Start: 03-01-2020 End: 11-30-2022 History of Social function [facility] Start: 03-01-2020 End: 11-30-2022 Tobacco use panel [facility] Adult Depression Screening Assessment 0 [facility] Start: 10-01-2019 Gender identity Identifies as female gender (finding) [facility] Start: 10-01-2019 Sexual orientation Heterosexual (finding) [facility] Clinical Notes 02-11-2010 to 05-10-2023 Patient InstructionsTon Ni APRN.[facility] - 05/10/2023 3:20 PM ESTTelephone Encounter - Freeman Coyle APRN.WILDLIFE ECOLOGY PROFESSOR - 02/27/2023 2:28 PM ESTLetter - Coordinator, Mammography - 12/29/2022 1:43 PM EDT Note Date & Type Note Facility 05-10-2023 Instructions Ton Ni APRN.WILDLIFE ECOLOGY PROFESSOR - 05/10/2023 3:34 PM EST Covid/Flu/RSV pending May use Tessalon Perles as needed for cough Start Prednisone 20 mg daily for 5 days, take with food. Continue supportive care at home and stay well hydrated. Follow pending test results or sooner as needed. documented in this encounter [facility] 05-10-2023 History of Presen t illness Narrative This is a 67 year old female who presents today with: Patient presents with: Acute Visit: cold, cough, green mucous HISTORY OF PRESENT ILLNESS: Pily Emery is a 67 year old female. Patient presents with: Acute Visit: cold, cough, green mucous Here in the office for cough, runny nose, and sneezing sneezing. Symptoms started last Monday. Cough has been dry, keeping her up at night. On going headaches. Loss of voice. Has not tried any OTC cold and cough medications. Taking zinc and vitamin C. No sore throat,SOB, or fevers. PAST MEDICAL HISTORY: PAST MEDICAL HISTORY Diagnosis Date Abdominal pain, right lower quadrant 2008 intermittant Alopecia Anxiety state, unspecified Arrhythmia Breast cancer (HCC) Diverticulosis of colon (without mention of hemorrhage) Fatty liver disease, non-alcoholic 02/02/2010 Hyperlipidemia LDL goal < 130 02/03/2011 Internal hemorrhoids without mention of complication Obesity 04/06/2012 Osteopenia, senile 02/26/2021 Repeat in 2-4 years from 02/2021 Psoriasis 2009 Psoriatic arthritis (HCC) 03/08/2010 Restless legs syndrome 10/21/2014 Stricture and stenosis of esophagus Unilateral primary osteoarthritis, left knee 2018 PAST SURGICAL HISTORY Procedure Laterality Date ARTHRP KNE CONDYLE&PLATU MEDIAL&LAT COMPARTMENTS Right 2017 BREAST LUMPECTOMY HX 06/2013 BX BREAST W/DEVICE 1ST LESION STEREOTACTIC GUID 07-11-13 DELIVERY ONLY , low cervical X3 COLONOSCOPY FLX DX W/COLLJ SPEC WHEN PFRMD 03/04/09 COLONOSCOPY FLX DX W/COLLJ SPEC WHEN PFRMD 09/19/2019 Colonoscopy ESOPHAGOGASTRODUODENOSCOPY TRANSORAL DIAGNOSTIC 02/11/2010 EGD EXC BREAST LES PREOP PLMT RAD MARKER OPEN 1 LES 5-614 RIGHT LIG/TRNSXJ FLP TUBE ABDL/VAG APPR UNI/BI Tubal ligation TONSILLECTOMY PRIMARY/SECONDARY <AGE 12 Tonsillectomy TOTAL ABDOMINAL HYSTERECT W/WO RMVL TUBE OVARY 2002 GREGORIO and BSO Atypical hyperplasia ALLERGIES Penicillins MEDICATIONS Current Outpatient Medications Medication Sig meclizine (ANTIVERT) 12.5 mg tab take 1 tablet by mouth three times daily as needed for dizziness omeprazole (PRILOSEC) 20 mg capsule Take 1 capsule by mouth once daily. Take 30-60 minutes before a meal on an empty stomach. folic acid 1 mg tablet Take 1 mg by mouth once daily. pramipexole (MIRAPEX) 0.25 mg tablet 1-2 tablets three times/day as needed for restless legs cyclobenzaprine (FLEXERIL) 10 mg tablet Take 1 tablet by mouth three times daily as needed for muscle spasm. atenolol (TENORMIN) 25 mg tablet Take 1 tablet by mouth once daily. omega-3s/dha/epa/fish oil (OMEGA 3 ORAL) Take 500 mg by mouth once daily. apixaban (ELIQUIS ORAL) Take by mouth. Per office visit note 02/14/2019 apremilast (OTEZLA) 30 mg tablet Take 30 mg by mouth once daily. Acidophilus-Pectin, [place] 25 million cell -100 mg tab Take 1 tablet by mouth once daily. No current facility-administered medications for this visit. Facility-Administered Medications Ordered in Other Visits Medication Dose Route Frequency lactated ringers iv infusion 5-30 mL/hr INTRAVENOUS CONTINUOUS acetaminophen 650 mg tab(s) (TYLENOL) 650 mg ORAL PRN ondansetron (PF) 4 mg injection (ZOFRAN) 4 mg INTRAVENOUS PRN metoclopramide HCl 10 mg injection (REGLAN) 10 mg INTRAVENOUS PRN FAMILY HISTORY Problem Relation Age of Onset Hypertension Mother Heart Failure Mother other (Other) Father aplastic anemia pancytopenia other (leukemia) Father 10/2010 Hypertension Sister Diabetes Brother Diabetes Brother None Brother Heart Maternal Grandmother Diabetes Maternal Grandmother Heart Paternal Grandmother Colon Cancer Paternal Uncle Social History Tobacco Use Smoking status: Never Smokeless tobacco: Never Vaping Use Vaping Use: Never used Substance Use Topics Alcohol use: No Drug use: No REVIEW OF SYSTEMS GENERAL: No weight loss, malaise or fevers/chills HEENT:+ Rhinorrhea/sneezing NECK: Negative for lumps, goiter, pain and significant neck swelling RESPIRATORY: + Cough CARDIOVASCULAR: Negative for chest pain, leg swelling, orthopnea, or palpitations GI: No nausea, vomiting, or diarrhea/constipation. No hematochezia/melena. No heartburn or reflux symptoms. : No history of dysuria, frequency or incontinence MUSCULOSKELETAL: Negative for joint pain or swelling. SKIN: Negative for lesions, rash, and itching ENDOCRINE: Negative for cold or heat intolerance, polyuria, polydipsia and goiter NEURO: No history of headaches, syncope, paralysis, seizures or tremors MOOD: Negative for depression, anxiety, or suicidal ideation. EXAM: BP 116/70 Pulse 70 Temp 36.9 C (98.4 F) Resp 16 Wt 99.8 kg (220 lb) SpO2 97% BMI 37.76 kg/m PHYSICAL EXAM: General Appearance: Well appearing, alert, in no acute distress, well-hydrated, well nourished. Skin: Skin color, texture, turgor normal, no suspicious rashes or lesions. Head: Normocephalic, no masses, lesions, tenderness or abnormalities. Eyes: Anicteric sclera. Extraocular movements are intact. Ears: External ears normal, canals clear. TMs pearly garcia. Nose/Sinuses: Positive findings: mucosa erythematous and swollen. Oropharynx: Lips, mucosa, and tongue normal, teeth and gums normal, oropharynx normal. Neck: Supple, no adenopathy; thyroid symmetric, normal size, no bruits. Lungs: Lungs clear to auscultation. No wheezing, rhonchi, rales. Cough. Heart: RRR without murmur, gallop, or rubs. No ectopy. Extremities: No deformities, edema, skin discoloration, clubbing or cyanosis. Good capillary refill. Peripheral Pulses: Normal, Capillary refill <2secs, strong peripheral pulses, Pulses palpable. Neurologic: Gait normal. Sensation grossly intact. ASSESSMENT/PLAN: 1. Viral URI - ICD9: 465.9, ICD10: J06.9 (primary diagnosis) - Discussed viral etiology and rationale for treatment. - Symptomatic treatment with prn analgesia - Supportive care with fluids and rest 2. Acute cough - ICD9: 786.2, ICD10: R05.1 - May use Tessalon Perles as needed for cough. - COVID & INFLUENZA A/B & RSV NAAT, ROUTINE - BENZONATATE 100 MG CAPSULE 3. Loss of voice - ICD9: 784.41, ICD10: R49.1 - Start prednisone burst, 20 mg daily for 5 days. - PREDNISONE 20 MG TABLET Follow-up pending test results or sooner as needed. Discussed treatment plan and patient voices understanding. Patient's questions answered appropriately. Medications and potential side effects were discussed and patient voices understanding. Ton Ni APRN.CNP This note was partially generated using [email or web address] voice recognition system. Note was reviewed for accuracy. There may be minor misspellings or grammar miscues with [employer] voice recognition. documented in this encounter [facility] 02-27-2023 Miscellaneous Notes The following approved medication requests have been transmitted electronically. Requested Prescriptions Pending Prescriptions Disp Refills meclizine (ANTIVERT) 12.5 mg tab [Pharmacy Med Name: Meclizine HCl 12.5 MG Oral Tablet] 24 tablet 0 Sig: take 1 tablet by mouth three times daily as needed for dizziness Freeman Coyle APRN.CNP documented in this encounter [facility] 12-29-2022 Miscellaneous Notes December 30, 2022 PID: [id number] Pily Emery [address] [place] [address] Dear Ms. Emery, We are pleased to inform you that the results of your recent breast imaging exam on 12/28/2022 are normal. Early detection of cancer is very important. We also understand recommendations regarding breast cancer screening are controversial. Please discuss with your primary care provider which strategy is best for you and whether a mammogram is right for you. Your imaging studies and report will be kept on file at [facility] as part of your permanent medical record and are available for your continuing care. Thank you for allowing us to help in meeting your health care needs. Sincerely, Dr. Vazquez Interpreting Radiologist [facility] (Normal over 40) documented in this encounter [facility] 12-28-2022 Note HNO ID: [id number] Author: Fany Pickett Mammo Tech Service: ? Author Type: Clinical Nutrition Manager Type: Progress Notes Filed: 12/28/2022 1:39 PM Note Text: Radiology Service Progress Note PATIENT NAME: Pily Emery DATE OF SERVICE: December 28, 2022 TIME: 1:19 PM PATIENT IDENTITY VERIFICATION COMPLETED USING TWO (2) IDENTIFIERS: Name and Date of confirmed by patient verbally. FALL SCREENING: Has the patient had 2 falls in the last year or 1 fall with injury or currently using an Ambulatory Assistive Device (Walker, Cane, Wheelchair, Crutches, etc.)? No PATIENT GENDER DATA: Female. status: : No status: NO. PATIENT RELEVANT IMPLANT DATA REVIEWED: Not Applicable RADIOLOGY DEPARTMENT: Mammography PERIPHERAL IV DATA: Not applicable SIGNED BY: William Daugherty December 28, 2022 1:19 PM [facility] 12-28-2022 History of Presen t illness Narrative Radiology Service Progress Note PATIENT NAME: Pily Emery DATE OF SERVICE: December 28, 2022 TIME: 1:19 PM PATIENT IDENTITY VERIFICATION COMPLETED USING TWO (2) IDENTIFIERS: Name and Date of confirmed by patient verbally. FALL SCREENING: Has the patient had 2 falls in the last year or 1 fall with injury or currently using an Ambulatory Assistive Device (Walker, Cane, Wheelchair, Crutches, etc.)? No PATIENT GENDER DATA: Female. status: : No status: NO. PATIENT RELEVANT IMPLANT DATA REVIEWED: Not Applicable RADIOLOGY DEPARTMENT: Mammography PERIPHERAL IV DATA: Not applicable SIGNED BY: William Daugherty December 28, 2022 1:19 PM documented in this encounter [facility] 12-20-2022 Note HNO ID: [id number] Author: Michelle Isaac APRN.WILDLIFE ECOLOGY PROFESSOR Service: ? Author Type: Nurse Practitioner Type: Progress Notes Filed: 12/20/2022 10:16 AM Note Text: Costume Design Teacher offered: Patient declinesGene Nascimento is a 67 year old who presents for an annual gynecologic exam with complaints, possible prolapse . Postmenopausal: Yes since age 2002 s/p Hysterectomy of EM Hyperplasia HRT use: Yes, Estrace . Last Pap: 2009 normal History of abnormal pap: Yes, prior to hysterectomy (no surgery on cervix per patient ) Last mammogram: 2021 abnormal, follow up normal History of abnormal mammogram: Yes Sexually active: No Vaginal dryness: some OB History T0 L3 SAB1 IAB0 Ectopic0 Multiple0 Live Births0 [employer] Work[employer] History LMP: Hysterectomy Age at Menarche: Age at First : Age at Menopause: [employer] History Comments: Sexual Activity: Not Currently; Male; hysterectomy Contraception: Surgical PAST MEDICAL HISTORY Diagnosis Date Abdominal pain, right lower quadrant 2008 intermittant Alopecia Anxiety state, unspecified Arrhythmia Breast cancer (HCC) Diverticulosis of colon (without mention of hemorrhage) Fatty liver disease, non-alcoholic 02/02/2010 Hyperlipidemia LDL goal < 130 02/03/2011 Internal hemorrhoids without mention of complication Obesity 04/06/2012 Osteopenia, senile 02/26/2021 Repeat in 2-4 years from 02/2021 Psoriasis 2009 Psoriatic arthritis (HCC) 03/08/2010 Restless legs syndrome 10/21/2014 Stricture and stenosis of esophagus Unilateral primary osteoarthritis, left knee 2018 PAST SURGICAL HISTORY Procedure Laterality Date ARTHRP KNE CONDYLEANDPLATU MEDIALANDLAT COMPARTMENTS Right 2017 BREAST LUMPECTOMY HX 06/2013 BX BREAST W/DEVICE 1ST LESION STEREOTACTIC GUID 07-11-13 DELIVERY ONLY , low cervical X3 COLONOSCOPY FLX DX W/COLLJ SPEC WHEN PFRMD 03/04/09 COLONOSCOPY FLX DX W/COLLJ SPEC WHEN PFRMD 09/19/2019 Colonoscopy ESOPHAGOGASTRODUODENOSCOPY TRANSORAL DIAGNOSTIC 02/11/2010 EGD EXC BREAST LES PREOP PLMT RAD MARKER OPEN 1 LES 14 RIGHT LIG/TRNSXJ FLP TUBE ABDL/VAG APPR UNI/BI Tubal ligation TONSILLECTOMY PRIMARY/SECONDARY Tonsillectomy TOTAL ABDOMINAL HYSTERECT W/WO RMVL TUBE OVARY 2002 GREGORIO and BSO Atypical hyperplasia FAMILY HISTORY Problem Relation Age of Onset Hypertension Mother Heart Failure Mother other (Other) Father aplastic anemia pancytopenia other (leukemia) Father 10/2010 Hypertension Sister Diabetes Brother Diabetes Brother None Brother Heart Maternal Grandmother Diabetes Maternal Grandmother Heart Paternal Grandmother Colon Cancer Paternal Uncle SOCIAL HISTORY Social History Tobacco Use Smoking status: Never Smokeless tobacco: Never Vaping Use Vaping Use: Never used Substance Use Topics Alcohol use: No Drug use: No REVIEW OF SYSTEMS Abdomen: No abdominal pain, nausea, vomiting, diarrhea, or constipation. No bloating, early satiety, indigestion, or increased flatulence. Bladder: No dysuria, gross hematuria, urinary frequency, urinary urgency, or incontinence Breast: No breast lumps, nipple d/c, overlying skin changes, redness or skin retraction Allergies and current medication updated:Yes EXAM: BP 120/80 Ht 5' 4 (1.63m) Wt 216 lb 9.6 oz (98.2kg) BMI 37.16 kg/(m2). GENERAL: pleasant, female in no apparent distress HEENT: Normocephalic, atraumatic, mucus membranes moist, and no lesions NECK: Supple, full range of motion, no adenopathy, and thyroid normal DERMATOLOGY: Normal, without lesions, non-icteric, and non-hirsute BREAST: soft, non-tender, no dominant mass, normal nipple-areolar complex, no lymphadenopathy, and no nipple discharge CHEST: Normal inspiratory effort ABDOMEN: soft, non-tender, and no masses PELVIC: external genitalia normal, normal Bartholin's glands, urethra, Dimock's glands, no vulvar lesions, physiologic discharge present, normal appearing perineal body and perianal region, cervix surgically absent, cystocele 2nd degree BIMANUAL: no adnexal masses, non-tender, and uterus surgically absent RECTOVAGINAL: deferred. NEURO: alert and oriented x3,exam grossly non-focal EXTREMITIES: normal ASSESSMENT/PLAN: 1) Health maintenance: Pap/HPV screening no longer needed Mammogram ordered Nutrition, exercise and routine health maintenance exams reviewed. Calcium/Vitamin D supplementation information provided. Colon cancer screening: up to date with screening BMD: up to date 2) Follow up one year or sooner as needed Michelle Isaac APRN.CNP [facility] 12-10-2022 Note HNO ID: [id number] Author: Lisa Villarreal APRN.CNP Service: ? Author Type: Nurse Practitioner Type: Progress Notes Filed: 12/10/2022 11:12 AM Note Text: Subjective HPI Pily Emery is a 67 year old female who presents with pain in her right face and sinuses. She had a dental procedure done yesterday. She had a broken tooth and dentist numbed her with lidocaine. She had a lot of pain on awakening and describes the pain as throbbing. States her face feels swollen. She is concerned she may be getting an infection. States she typically gets an antibiotic prior to dental procedures but did not this time. She has not had a fever. She denies sinus congestion or drainage. She has not taken any medication at home today. Review of Systems Constitutional: Negative for chills and fever. HENT: See HPI Musculoskeletal: Negative for neck pain. Skin: Negative for itching and rash. BP 122/78 Pulse 74 Temp 36.4 ?C (97.6 ?F) Resp 16 Wt 98.4 kg (217 lb) BMI 36.82 kg/m? PAST MEDICAL HISTORY Diagnosis Date Abdominal pain, right lower quadrant 2008 intermittant Alopecia Anxiety state, unspecified Arrhythmia Breast cancer (HCC) Diverticulosis of colon (without mention of hemorrhage) Fatty liver disease, non-alcoholic 02/02/2010 Hyperlipidemia LDL goal < 130 02/03/2011 Internal hemorrhoids without mention of complication Obesity 04/06/2012 Osteopenia, senile 02/26/2021 Repeat in 2-4 years from 02/2021 Psoriasis 2009 Psoriatic arthritis (HCC) 03/08/2010 Restless legs syndrome 10/21/2014 Stricture and stenosis of esophagus Unilateral primary osteoarthritis, left knee 2018 PAST SURGICAL HISTORY Procedure Laterality Date ARTHRP KNE CONDYLEANDPLATU MEDIALANDLAT COMPARTMENTS Right 2017 BREAST LUMPECTOMY HX 06/2013 BX BREAST W/DEVICE 1ST LESION STEREOTACTIC GUID 07-11-13 DELIVERY ONLY , low cervical X3 COLONOSCOPY FLX DX W/COLLJ SPEC WHEN PFRMD 03/04/09 COLONOSCOPY FLX DX W/COLLJ SPEC WHEN PFRMD 09/19/2019 Colonoscopy ESOPHAGOGASTRODUODENOSCOPY TRANSORAL DIAGNOSTIC 02/11/2010 EGD EXC BREAST LES PREOP PLMT RAD MARKER OPEN 1 LES 07-30-13 RIGHT LIG/TRNSXJ FLP TUBE ABDL/VAG APPR UNI/BI Tubal ligation TONSILLECTOMY PRIMARY/SECONDARY Tonsillectomy TOTAL ABDOMINAL HYSTERECT W/WO RMVL TUBE OVARY 2002 GREGORIO and BSO Atypical hyperplasia ALLERGIES Penicillins MEDICATIONS folic acid 1 mg tabletTake 1 mg by mouth once daily.Disp: Rfl: pramipexole (MIRAPEX) 0.25 mg tablet1-2 tablets three times/day as needed for restless legsDisp: 100 tabletRfl: 6 meclizine (ANTIVERT) 12.5 mg tabTAKE ONE TABLET BY MOUTH THREE TIMES DAILY NEEDED FOR DIZZINESSDisp: 24 tabletRfl: 0 cyclobenzaprine (FLEXERIL) 10 mg tabletTake 1 tablet by mouth three times daily as needed for muscle spasm.Disp: 30 tabletRfl: 3 omeprazole (PRILOSEC) 20 mg capsuleTake 1 capsule by mouth once daily. Take 30-60 minutes before breakfast on an empty stomach.Disp: 30 capsuleRfl: 2 atenolol (TENORMIN) 25 mg tabletTake 1 tablet by mouth once daily.Disp: 30 tabletRfl: 11 omega-3s/dha/epa/fish oil (OMEGA 3 ORAL)Take 500 mg by mouth once daily.Disp: Rfl: apixaban (ELIQUIS ORAL)Take by mouth. Per office visit note 02/14/2019 Disp: Rfl: apremilast (OTEZLA) 30 mg tabletTake 30 mg by mouth once daily.Disp: Rfl: Acidophilus-Pectin, [place] 25 million cell -100 mg tabTake 1 tablet by mouth once daily.Disp: Rfl: clindamycin (CLEOCIN) 150 mg capsuleTake 3 capsules by mouth three times daily for 5 days.Disp: 45 capsuleRfl: 0 psyllium husk, bulk, 100 % powd2 teaspoonsful once daily.Disp: Rfl: (Patient not taking: Reported on 12/10/2022) naproxen (NAPROSYN) 500 mg tabletTake 1 tablet by mouth twice daily as needed (for pain/inflammation). Take with food.Disp: 60 tabletRfl: 11 (Patient not taking: Reported on 12/10/2022) FAMILY HISTORY Problem Relation Age of Onset Hypertension Mother Heart Failure Mother other (Other) Father aplastic anemia pancytopenia other (leukemia) Father 10/2010 Hypertension Sister Diabetes Brother Diabetes Brother None Brother Heart Maternal Grandmother Diabetes Maternal Grandmother Heart Paternal Grandmother Colon Cancer Paternal Uncle Social History Tobacco Use Smoking status: Never Smokeless tobacco: Never Vaping Use Vaping Use: Never used Substance Use Topics Alcohol use: No Drug use: No Objective Physical Exam Vitals and nursing note reviewed. Constitutional: Appearance: Normal appearance. HENT: Head: Nose: No congestion or rhinorrhea. Mouth/Throat: Lips: [place]. Mouth: Mucous membranes are moist. Dentition: Normal dentition. No dental tenderness, gingival swelling or dental abscesses. Pharynx: Oropharynx is clear. No pharyngeal swelling or posterior oropharyngeal erythema. Skin: General: Skin is warm and dry. Findings: No erythema or rash. Neurological: Mental St (more content not included)... [facility] 12-10-2022 Instructions Lisa Villarreal APRN.WILDLIFE ECOLOGY PROFESSOR - 12/10/2022 11:12 AM EDT ASSESSMENT/PLAN: 1. Pain, dental - ICD9: 525.9, ICD10: K08.89 - CLINDAMYCIN HCL 150 MG CAPSULE - ice packs to painful area. - Follow-up with your PCP in 3-5 days if symptoms have not improved or sooner if symptoms worsen - Discussed red flags and need for immediate medical evaluation if any occur. - Discussed supportive care treatment with fluids, rest and analgesia. - Discussed expected course of illness Lisa Villarreal APRN.WILDLIFE ECOLOGY PROFESSOR documented in this encounter [facility] 12-10-2022 History of Presen t illness Narrative Images from the original note were not included. Subjective HPI Pily Emery is a 67 year old female who presents with pain in her right face and sinuses. She had a dental procedure done yesterday. She had a broken tooth and dentist numbed her with lidocaine. She had a lot of pain on awakening and describes the pain as throbbing. States her face feels swollen. She is concerned she may be getting an infection. States she typically gets an antibiotic prior to dental procedures but did not this time. She has not had a fever. She denies sinus congestion or drainage. She has not taken any medication at home today. Review of Systems Constitutional: Negative for chills and fever. HENT: See HPI Musculoskeletal: Negative for neck pain. Skin: Negative for itching and rash. BP 122/78 Pulse 74 Temp 36.4 C (97.6 F) Resp 16 Wt 98.4 kg (217 lb) BMI 36.82 kg/m PAST MEDICAL HISTORY Diagnosis Date Abdominal pain, right lower quadrant 2008 intermittant Alopecia Anxiety state, unspecified Arrhythmia Breast cancer (HCC) Diverticulosis of colon (without mention of hemorrhage) Fatty liver disease, non-alcoholic 02/02/2010 Hyperlipidemia LDL goal < 130 02/03/2011 Internal hemorrhoids without mention of complication Obesity 04/06/2012 Osteopenia, senile 02/26/2021 Repeat in 2-4 years from 02/2021 Psoriasis 2009 Psoriatic arthritis (HCC) 03/08/2010 Restless legs syndrome 10/21/2014 Stricture and stenosis of esophagus Unilateral primary osteoarthritis, left knee 2018 PAST SURGICAL HISTORY Procedure Laterality Date ARTHRP KNE CONDYLE&PLATU MEDIAL&LAT COMPARTMENTS Right 2017 BREAST LUMPECTOMY HX 06/2013 BX BREAST W/DEVICE 1ST LESION STEREOTACTIC GUID 07-11-13 DELIVERY ONLY , low cervical X3 COLONOSCOPY FLX DX W/COLLJ SPEC WHEN PFRMD 03/04/09 COLONOSCOPY FLX DX W/COLLJ SPEC WHEN PFRMD 09/19/2019 Colonoscopy ESOPHAGOGASTRODUODENOSCOPY TRANSORAL DIAGNOSTIC 02/11/2010 EGD EXC BREAST LES PREOP PLMT RAD MARKER OPEN 1 LES 14 RIGHT LIG/TRNSXJ FLP TUBE ABDL/VAG APPR UNI/BI Tubal ligation TONSILLECTOMY PRIMARY/SECONDARY <AGE 10 Tonsillectomy TOTAL ABDOMINAL HYSTERECT W/WO RMVL TUBE OVARY 2002 GREGORIO and BSO Atypical hyperplasia ALLERGIES Penicillins MEDICATIONS folic acid 1 mg tablet^Take 1 mg by mouth once daily.^Disp: ^Rfl: pramipexole (MIRAPEX) 0.25 mg tablet^1-2 tablets three times/day as needed for restless legs^Disp: 100 tablet^Rfl: 6 meclizine (ANTIVERT) 12.5 mg tab^TAKE ONE TABLET BY MOUTH THREE TIMES DAILY NEEDED FOR DIZZINESS^Disp: 24 tablet^Rfl: 0 cyclobenzaprine (FLEXERIL) 10 mg tablet^Take 1 tablet by mouth three times daily as needed for muscle spasm.^Disp: 30 tablet^Rfl: 3 omeprazole (PRILOSEC) 20 mg capsule^Take 1 capsule by mouth once daily. Take 30-60 minutes before breakfast on an empty stomach.^Disp: 30 capsule^Rfl: 2 atenolol (TENORMIN) 25 mg tablet^Take 1 tablet by mouth once daily.^Disp: 30 tablet^Rfl: 11 omega-3s/dha/epa/fish oil (OMEGA 3 ORAL)^Take 500 mg by mouth once daily.^Disp: ^Rfl: apixaban (ELIQUIS ORAL)^Take by mouth. Per office visit note 02/14/2019 ^Disp: ^Rfl: apremilast (OTEZLA) 30 mg tablet^Take 30 mg by mouth once daily.^Disp: ^Rfl: Acidophilus-Pectin, [place] 25 million cell -100 mg tab^Take 1 tablet by mouth once daily.^Disp: ^Rfl: clindamycin (CLEOCIN) 150 mg capsule^Take 3 capsules by mouth three times daily for 5 days.^Disp: 45 capsule^Rfl: 0 psyllium husk, bulk, 100 % powd^2 teaspoonsful once daily.^Disp: ^Rfl: (Patient not taking: Reported on 12/10/2022) naproxen (NAPROSYN) 500 mg tablet^Take 1 tablet by mouth twice daily as needed (for pain/inflammation). Take with food.^Disp: 60 tablet^Rfl: 11 (Patient not taking: Reported on 12/10/2022) FAMILY HISTORY Problem Relation Age of Onset Hypertension Mother Heart Failure Mother other (Other) Father aplastic anemia pancytopenia other (leukemia) Father 10/2010 Hypertension Sister Diabetes Brother Diabetes Brother None Brother Heart Maternal Grandmother Diabetes Maternal Grandmother Heart Paternal Grandmother Colon Cancer Paternal Uncle Social History Tobacco Use Smoking status: Never Smokeless tobacco: Never Vaping Use Vaping Use: Never used Substance Use Topics Alcohol use: No Drug use: No Objective Physical Exam Vitals and nursing note reviewed. Constitutional: Appearance: Normal appearance. HENT: Head: Nose: No congestion or rhinorrhea. Mouth/Throat: Lips: [place]. Mouth: Mucous membranes are moist. Dentition: Normal dentition. No dental tenderness, gingival swelling or dental abscesses. Pharynx: Oropharynx is clear. No pharyngeal swelling or posterior oropharyngeal erythema. Skin: General: Skin is warm and dry. Findings: No erythema or rash. Neurological: Mental Status: She is alert. ASSESSMENT/PLAN: 1. Pain, dental - ICD9: 525.9, ICD10: K08.89 - CLINDAMYCIN HCL 150 MG CAPSULE - ice packs to painful area. - Follow-up with your PCP in 3-5 days if symptoms have not improved or sooner if symptoms worsen - Discussed red flags and need for immediate medical evaluation if any occur. - Discussed supportive care treatment with fluids, rest and analgesia. - Discussed expected course of illness Lisa Villarreal APRN.DONNIE documented in this encounter [facility] 11-30-2022 Note HNO ID: [id number] Author: Ton Ni APRN.DONNIE Service: ? Author Type: Nurse Practitioner Type: Progress Notes Filed: 11/30/2022 4:43 PM Note Text: This is a 67 year old female who presents today with: Patient presents with: Physical HISTORY OF PRESENT ILLNESS: Pily Emery is a 67 year old female. Patient presents with: Physical Wellness exam. Diet: Trying to get in more vegetables for more balanced diet Exercise: Does online fitness class on Mondays and walks 3 times a week Vision: Had routine eye exam earlier in the year Dental: Has dentist appointment next week Sleep: 6-8 hours a night Mood: Mild anxiety due to recent move but otherwise ok Psoriatic arthritis: Following with dermatology Taking Otezla 30 mg daily. Pt weaning off Otezla due to velazquez, Methotrexate w/ folic acid will be her new medication GERD: Taking omeprazole 20 mg daily, trying to decrease frequency. Symptoms well controlled medication. Following with gastroenterology, just had an EGD completed due to difficulty swallowing, improved after procedure A-fib: Taking atenolol 25 mg daily and Eliquis 5 mg twice daily. Following with cardiology, [facility] Colonoscopy: Last completed in August 2019, due in 2029. Mammogram: Due in January [place] Worker: Full hyster Vaccines: Denies wanting at this time. PAST MEDICAL HISTORY: PAST MEDICAL HISTORY Diagnosis Date Abdominal pain, right lower quadrant 2008 intermittant Alopecia Anxiety state, unspecified Arrhythmia Breast cancer (HCC) Diverticulosis of colon (without mention of hemorrhage) Fatty liver disease, non-alcoholic 02/02/2010 Hyperlipidemia LDL goal < 130 02/03/2011 Internal hemorrhoids without mention of complication Obesity 04/06/2012 Osteopenia, senile 02/26/2021 Repeat in 2-4 years from 02/2021 Psoriasis 2009 Psoriatic arthritis (HCC) 03/08/2010 Restless legs syndrome 10/21/2014 Stricture and stenosis of esophagus Unilateral primary osteoarthritis, left knee 2017 PAST SURGICAL HISTORY Procedure Laterality Date ARTHRP KNE CONDYLEANDPLATU MEDIALANDLAT COMPARTMENTS Right 2017 BREAST LUMPECTOMY HX 06/2013 BX BREAST W/DEVICE 1ST LESION STEREOTACTIC GUID 07-11-13 DELIVERY ONLY , low cervical X3 COLONOSCOPY FLX DX W/COLLJ SPEC WHEN PFRMD 03/04/09 COLONOSCOPY FLX DX W/COLLJ SPEC WHEN PFRMD 09/19/2019 Colonoscopy ESOPHAGOGASTRODUODENOSCOPY TRANSORAL DIAGNOSTIC 02/11/2010 EGD EXC BREAST LES PREOP PLMT RAD MARKER OPEN 1 LES 07-30-13 RIGHT LIG/TRNSXJ FLP TUBE ABDL/VAG APPR UNI/BI Tubal ligation TONSILLECTOMY PRIMARY/SECONDARY Tonsillectomy TOTAL ABDOMINAL HYSTERECT W/WO RMVL TUBE OVARY 2002 GREGORIO and BSO Atypical hyperplasia ALLERGIES Penicillins MEDICATIONS Current Outpatient Medications Medication Sig omeprazole (PRILOSEC) 20 mg capsule Take 1 capsule by mouth once daily. Take 30-60 minutes before breakfast on an empty stomach. atenolol (TENORMIN) 25 mg tablet Take 1 tablet by mouth once daily. psyllium husk, bulk, 100 % powd 2 teaspoonsful once daily. omega-3s/dha/epa/fish oil (OMEGA 3 ORAL) Take 500 mg by mouth once daily. cyclobenzaprine (FLEXERIL) 10 mg tablet Take 1 tablet by mouth three times daily as needed for muscle spasm. naproxen (NAPROSYN) 500 mg tablet Take 1 tablet by mouth twice daily as needed (for pain/inflammation). Take with food. meclizine (ANTIVERT) 12.5 mg tab TAKE ONE TABLET BY MOUTH THREE TIMES DAILY NEEDED FOR DIZZINESS pramipexole (MIRAPEX) 0.25 mg tablet 1-2 tablets three times/day as needed for restless legs apixaban (ELIQUIS ORAL) Take by mouth. Per office visit note 02/14/2019 apremilast (OTEZLA) 30 mg tablet Take 30 mg by mouth once daily. Acidophilus-Pectin, [place] 25 million cell -100 mg tab Take 1 tablet by mouth once daily. No current facility-administered medications for this visit. Facility-Administered Medications Ordered in Other Visits Medication Dose Route Frequency lactated ringers iv infusion 5-30 mL/hr INTRAVENOUS CONTINUOUS acetaminophen 650 mg tab(s) (TYLENOL) 650 mg ORAL PRN ondansetron (PF) 4 mg injection (ZOFRAN) 4 mg INTRAVENOUS PRN metoclopramide HCl 10 mg injection (REGLAN) 10 mg INTRAVENOUS PRN FAMILY HISTORY Problem Relation Age of Onset Hypertension Mother Heart Failure Mother other (Other) Father aplastic anemia pancytopenia other (leukemia) Father 10/2010 Hypertension Sister Diabetes Brother Diabetes Brother None Brother Heart Maternal Grandmother Diabetes Maternal Grandmother Heart Paternal Grandmother Colon Cancer Paternal Uncle Social History Tobacco Use Smoking status: Never Smokeless tobacco: Never Vaping Use Vaping Use: Never used Substance Use Topics Alcohol use: No Drug use: No REVIEW OF SYSTEMS GENERAL: No weight loss, malaise or fevers/chills HEENT: Negative for frequent or significant headaches, No changes in hearing or vision. NEC (more content not included)... [facility] 11-30-2022 History of Presen t illness Narrative This is a 67 year old female who presents today with: Patient presents with: Physical HISTORY OF PRESENT ILLNESS: Pily Emery is a 67 year old female. Patient presents with: Physical Wellness exam. Diet: Trying to get in more vegetables for more balanced diet Exercise: Does online fitness class on Mondays and walks 3 times a week Vision: Had routine eye exam earlier in the year Dental: Has dentist appointment next week Sleep: 6-8 hours a night Mood: Mild anxiety due to recent move but otherwise ok Psoriatic arthritis: Following with dermatology Taking Otezla 30 mg daily. Pt weaning off Otezla due to velazquez, Methotrexate w/ folic acid will be her new medication GERD: Taking omeprazole 20 mg daily, trying to decrease frequency. Symptoms well controlled medication. Following with gastroenterology, just had an EGD completed due to difficulty swallowing, improved after procedure A-fib: Taking atenolol 25 mg daily and Eliquis 5 mg twice daily. Following with cardiology, [facility] Colonoscopy: Last completed in August 2019, due in 2029. Mammogram: Due in January [place] Worker: Full hyster Vaccines: Denies wanting at this time. PAST MEDICAL HISTORY: PAST MEDICAL HISTORY Diagnosis Date Abdominal pain, right lower quadrant 2008 intermittant Alopecia Anxiety state, unspecified Arrhythmia Breast cancer (HCC) Diverticulosis of colon (without mention of hemorrhage) Fatty liver disease, non-alcoholic 02/02/2010 Hyperlipidemia LDL goal < 130 02/03/2011 Internal hemorrhoids without mention of complication Obesity 04/06/2012 Osteopenia, senile 02/26/2021 Repeat in 2-4 years from 02/2021 Psoriasis 2009 Psoriatic arthritis (HCC) 03/08/2010 Restless legs syndrome 10/21/2014 Stricture and stenosis of esophagus Unilateral primary osteoarthritis, left knee 2018 PAST SURGICAL HISTORY Procedure Laterality Date ARTHRP KNE CONDYLE&PLATU MEDIAL&LAT COMPARTMENTS Right 2017 BREAST LUMPECTOMY HX 06/2013 BX BREAST W/DEVICE 1ST LESION STEREOTACTIC GUID 07-11-13 DELIVERY ONLY , low cervical X3 COLONOSCOPY FLX DX W/COLLJ SPEC WHEN PFRMD 03/04/09 COLONOSCOPY FLX DX W/COLLJ SPEC WHEN PFRMD 09/19/2019 Colonoscopy ESOPHAGOGASTRODUODENOSCOPY TRANSORAL DIAGNOSTIC 02/11/2010 EGD EXC BREAST LES PREOP PLMT RAD MARKER OPEN 1 LES -14 RIGHT LIG/TRNSXJ FLP TUBE ABDL/VAG APPR UNI/BI Tubal ligation TONSILLECTOMY PRIMARY/SECONDARY <AGE 12 Tonsillectomy TOTAL ABDOMINAL HYSTERECT W/WO RMVL TUBE OVARY 2002 GREGORIO and BSO Atypical hyperplasia ALLERGIES Penicillins MEDICATIONS Current Outpatient Medications Medication Sig omeprazole (PRILOSEC) 20 mg capsule Take 1 capsule by mouth once daily. Take 30-60 minutes before breakfast on an empty stomach. atenolol (TENORMIN) 25 mg tablet Take 1 tablet by mouth once daily. psyllium husk, bulk, 100 % powd 2 teaspoonsful once daily. omega-3s/dha/epa/fish oil (OMEGA 3 ORAL) Take 500 mg by mouth once daily. cyclobenzaprine (FLEXERIL) 10 mg tablet Take 1 tablet by mouth three times daily as needed for muscle spasm. naproxen (NAPROSYN) 500 mg tablet Take 1 tablet by mouth twice daily as needed (for pain/inflammation). Take with food. magruder hospitallizine (ANTIVERT) 12.5 mg tab TAKE ONE TABLET BY MOUTH THREE TIMES DAILY NEEDED FOR DIZZINESS pramipexole (MIRAPEX) 0.25 mg tablet 1-2 tablets three times/day as needed for restless legs apixaban (ELIQUIS ORAL) Take by mouth. Per office visit note 02/14/2019 apremilast (OTEZLA) 30 mg tablet Take 30 mg by mouth once daily. Acidophilus-Pectin, [place] 25 million cell -100 mg tab Take 1 tablet by mouth once daily. No current facility-administered medications for this visit. Facility-Administered Medications Ordered in Other Visits Medication Dose Route Frequency lactated ringers iv infusion 5-30 mL/hr INTRAVENOUS CONTINUOUS acetaminophen 650 mg tab(s) (TYLENOL) 650 mg ORAL PRN ondansetron (PF) 4 mg injection (ZOFRAN) 4 mg INTRAVENOUS PRN metoclopramide HCl 10 mg injection (REGLAN) 10 mg INTRAVENOUS PRN FAMILY HISTORY Problem Relation Age of Onset Hypertension Mother Heart Failure Mother other (Other) Father aplastic anemia pancytopenia other (leukemia) Father 10/2010 Hypertension Sister Diabetes Brother Diabetes Brother None Brother Heart Maternal Grandmother Diabetes Maternal Grandmother Heart Paternal Grandmother Colon Cancer Paternal Uncle Social History Tobacco Use Smoking status: Never Smokeless tobacco: Never Vaping Use Vaping Use: Never used Substance Use Topics Alcohol use: No Drug use: No REVIEW OF SYSTEMS GENERAL: No weight loss, malaise or fevers/chills HEENT: Negative for frequent or significant headaches, No changes in hearing or vision. NECK: Negative for lumps, goiter, pain and significant neck swelling RESPIRATORY: Negative for cough, hemoptysis, wheezing, dyspnea or shortness of breath CARDIOVASCULAR: Negative for chest pain, leg swelling, orthopnea, or palpitations GI: No nausea, vomiting, or diarrhea/constipation. No hematochezia/melena. No heartburn or reflux symptoms. : No history of dysuria, frequency or incontinence MUSCULOSKELETAL: Negative for joint pain or swelling. SKIN: Negative for lesions, rash, and itching ENDOCRINE: Negative for cold or heat intolerance, polyuria, polydipsia and goiter NEURO: No history of headaches, syncope, paralysis, seizures or tremors MOOD: Negative for depression, anxiety, or suicidal ideation. EXAM: BP 100/64 Pulse 79 Resp 16 Ht 163.5 cm (5' 4.37 ) Wt 96.6 kg (213 lb) SpO2 100% BMI 36.14 kg/m PHYSICAL EXAM: General Appearance: Well appearing, alert, in no acute distress, well-hydrated, well nourished.. Skin: Skin color, texture, turgor normal, no suspicious rashes or lesions. Head: Normocephalic, no masses, lesions, tenderness or abnormalities. Eyes: Anicteric sclera. Pupils are equally round and reactive to light. Extraocular movements are intact. . Ears: External ears normal, canals clear. Neck: Supple, no adenopathy; thyroid symmetric, normal size, no bruits. Lungs: Lungs clear to auscultation. No wheezing, rhonchi, rales.. Heart: RRR without murmur, gallop, or rubs. No ectopy. Abdomen: Normal abdominal exam, Abdomen soft, non-tender. Bowel sounds normal. No masses, organomegaly. Extremities: No deformities, edema, skin discoloration, clubbing or cyanosis. Good capillary refill. . Musculoskeletal: No joint swelling, deformity, or tenderness. Peripheral Pulses: Normal. Neurologic: Gait normal. Reflexes normal and symmetric. Sensation grossly intact.. Mood: Pt pleasant, good eye contact ASSESSMENT/PLAN: 1. Wellness examination - ICD9: V70.0, ICD10: Z00.00 (primary diagnosis) - Counseled on healthy diet and regular exercise - Denied wanting cholesterol labs at this time. Getting CMP completed with rheumatology 2. Psoriatic arthritis (HCC) - ICD9: 696.0, ICD10: L40.50 - Continue to follow up with dermatology 3. Atrial fibrillation, new onset (HCC) - ICD9: 427.31, ICD10: I48.91 - Stable, Keep scheduled appointments with cardiology 4. Situational anxiety - ICD9: 300.09, ICD10: F41.8 - Stable, Refill provided - MECLIZINE 12.5 MG TABLET 5. Insomnia secondary to situational depression - ICD9: 309.0, 327.02, ICD10: F43.21, F51.05 - Stable, Refill provided - MECLIZINE 12.5 MG TABLET 6. Restless legs syndrome - ICD9: 333.94, ICD10: G25.81 - Increase Mirapex 0.5 mg at bedtime 7. Encounter for screening mammogram for breast cancer - ICD9: V76.12, ICD10: Z12.31 - OMAR SCREENING 8. Women's annual routine gynecological examination - ICD9: V72.31, ICD10: Z01.419 - CONSULT TO GYNECOLOGY Follow up in 1 year as needed Discussed treatment plan and patient voices understanding. Patient's questions answered appropriately. Medications and potential side effects were discussed and patient voices understanding. Ton Ni APRN.CNP This note was partially generated using [employer] voice recognition system. Note was reviewed for accuracy. There may be minor misspellings or grammar miscues with [employer] voice recognition. documented in this encounter [facility] 11-30-2022 Instructions Ton Ni APRN.CNP - 11/30/2022 4:19 PM EDT Schedule mammogram Make follow up appointment with gynecology for routine visit Try doubling Mirapex to improve symptoms Keep scheduled appointments with rheumatology May get flu vaccine at any time Continue to eat well balanced diet Follow up in 1 year or sooner as needed Health Promotion: - Eat healthy -- go to [email or web address] to get started - Have a yearly physical - Mammogram yearly after age 40 - Get at least 30 minutes of physical activity daily - Get at least 7 to 8 hours of sleep each night - Reach and maintain a healthy weight - Get help to quit or don't start smoking - Limit alcohol use to one drink or less - Do not use illegal drugs or misuse prescription drugs - Wear a helmet when riding a bike and wear protective gear for sports - Wear a seatbelt in cars and not text and drive - Wear sunscreen documented in this encounter [facility] 07-19-2022 Note HNO ID: [id number] Author: Lea Urrutia RN Service: Nursing Author Type: Registered Nurse Type: Nursing Progress Note Filed: 07/19/2022 1:20 PM Note Text: [id number] Pt here for EGD. Denies pain. [facility] 07-18-2022 Miscellaneous Notes Sent The following approved medication requests have been transmitted electronically. Requested Prescriptions Pending Prescriptions Disp Refills atenolol (TENORMIN) 25 mg tablet 30 tablet 11 Sig: Take 1 tablet by mouth once daily. Freeman Coyle APRN.DONNIE Patient said she only has 1 pill left. Wants to know if this can be sent renetta. Patient has been identified by name and date of : Yes Requested Prescriptions Pending Prescriptions Disp Refills atenolol (TENORMIN) 25 mg tablet 30 tablet 11 Sig: Take 1 tablet by mouth once daily. FITO-04/22/22 Labs-04/22/22 NOV-none RX INSTRUCTIONS: Patient aware RX will be sent to pharmacy. No need to notify patient. Estela Gooden Pss documented in this encounter [facility] 05-30-2022 Instructions Benjamín Barrios MD - 05/30/2022 2:38 PM EST Thank you for seeing me in clinic today. It was very nice to meet you! As we discussed, my recommendations are as follows: Please schedule an EGD (upper endoscopy) at your earliest convenience. I recommend holding Eliquis for 2 days before your procedure. Please confirm if this is okay to hold with your prescribing provider. In the meantime, chew your food completely and slowly to avoid any food impactions. Begin using 2 teaspoons of soluble fiber (e.g. Metamucil, Benefiber or Citrucel) in 12 oz of water every day. Stir until fiber has dissolved. Try this for at least 2 weeks consistently before adjusting your dose or deciding to stop it. If fiber is well-tolerated but does not completely regulate bowel movements after 2 weeks, add another teaspoon of fiber for a total of 3 teaspoons per day. Fiber works best if you are hydrated. Be sure to drink at least 64 oz of water every day. Please make a follow up visit with me in 4 months If you have any questions about the above treatment plan, please do not hesitate to send me a [employer] message or call the [facility] at [phone] to route me a message. documented in this encounter [facility] 05-30-2022 History and physical note FOLLOW UP OFFICE VISIT REASON FOR FOLLOW UP: Dysphagia PATIENT SUMMARY: Pily Emery is a 66 year old female with a history of obesity, Afib (on Eliquis), DCIS, anxiety, psoriatic arthritis, esophageal stricture and NAFLD who is referred to the GI clinic for evaluation and management of chronic intermittent dysphagia. Dysphagia dates back >10 years. EGD in 2009 showed a mild stenosis in the distal esophagus that was stretched with an 18 mm Savary dilator. No visible stenosis was seen on her most recent EGD in 2019. Biopsies during this exam were negative for EoE. Pily was last seen in the GI clinic in 09/2019 by Irina Jennings CNP after bidirectional endoscopy (results summarized below). She was having some left-sided discomfort, for which Levsin was prescribed. Omeprazole was also recommended. INTERVAL HISTORY: She started experiencing recurrent intermittent dysphagia 3 years ago. Closer to onset of this recurrent dysphagia, she presented to the [place] ER after feeling like a piece of broccoli got stuck at the level of her sternal notch. She was not scoped, but the sensation of this being stuck passed after several hours. She could not induce regurgitation. Drinking water was not helpful. She cannot recall whether her current dysphagia feels similar to dysphagia experienced back in 2009. She does recall that dilation helped. Currently, dysphagia is restricted to solid foods. No issues with liquids. She was seen by ENT. Flexible laryngoscopy was unremarkable. Esophagram (05/2021) showed a Schatzki ring and hiatal hernia with some delay in transit of liquid barium in the distal esophagus. She is no longer having acid reflux and does not take any regularly scheduled acid suppressants. She denies early satiety, nausea, vomiting, abdominal pain, changes in appetite, change in bowel habits, unintentional weight loss or GI bleeding. She averages 1 BM every other day, but frequency can be intermittently variable. Hard stools are passed when she doesn't stay hydrated. She takes Calm supplement every other day and miralax PRN, but use is infrequent. She uses naproxen PRN once or twice monthly. Otherwise, no NSAIDs. Past Clinical Work-up: Esophagram: 06/11/21: (scanned): Hiatal hernia with a Schatzki ring Mild delay in the transit of liquid barium in the distal esophagus. Upper enteroscopy: 09/19/19: Dr. Kelley: for dysphagia: - Normal examined jejunum. - Erythematous duodenopathy. - Gastritis. Biopsied. - Small hiatal hernia. - Normal lower third of esophagus. Biopsied. - Normal middle third of esophagus. Biopsied. Path: 1. Antrum, biopsy (A) - Fundic mucosa with minimal chronic inflammation. No evidence of H. pylori. 2. Distal esophagus, biopsy (B) - Squamous mucosa with reactive changes. No evidence of intestinal metaplasia or dysplasia 3. Mid esophagus, biopsy (C) - Squamous mucosa with no diagnostic alteration. No evidence of eosinophilic esophagitis. Colon: 09/19/19: Dr. Kelley: for screening - Diverticulosis in the entire examined colon. - The examination was otherwise normal. - The distal rectum and anal verge are normal on retroflexion view. - No specimens collected. Repeat exam recommended in 10 years for screening. EGD: 02/11/10: Dr. Shirin Mullins: for dysphagia: The posterior pharynx is normal. The Z-line is slightly erratic but there are no erosions or nodules. There is a mild circumferential narrowing noted. The 9 mm instrument easily passes through this area. After the EGD was completed the instrument was then repostioned in the distal esophagus and dilatation was carried out using the graduated balloon dilator. Dilatation to a maximum of 18 mm was done without difficulty. There is an erosive gastritis noted in the distal stomach. Acute and chronic changes are noted. Bxs for HP have been taken. There is a small hiatal hernia. Bxs for HP have been taken. There are mild erosive changes seen in the bulb as well. Path: No report available for review. ALLERGIES Allergen Reactions Penicillins YEAST INFECTION PAST MEDICAL HISTORY Diagnosis Date Abdominal pain, right lower quadrant 2008 intermittant Alopecia Anxiety state, unspecified Arrhythmia Breast cancer (HCC) Diverticulosis of colon (without mention of hemorrhage) Fatty liver disease, non-alcoholic 02/02/2010 Hyperlipidemia LDL goal < 130 02/03/2011 Internal hemorrhoids without mention of complication Obesity 04/06/2012 Osteopenia, senile 02/26/2021 Repeat in 2-4 years from 02/2021 Psoriasis 2009 Psoriatic arthritis (HCC) 03/08/2010 Restless legs syndrome 10/21/2014 Stricture and stenosis of esophagus Unilateral primary osteoarthritis, left knee 2018 PAST SURGICAL HISTORY Procedure Laterality Date ARTHRP KNE CONDYLE&PLATU MEDIAL&LAT COMPARTMENTS Right 2017 BREAST LUMPECTOMY HX 06/2013 BX BREAST W/DEVICE 1ST LESION STEREOTACTIC GUID 07-11-13 DELIVERY ONLY , low cervical X3 COLONOSCOPY FLX DX W/COLLJ SPEC WHEN PFRMD 03/04/09 COLONOSCOPY FLX DX W/COLLJ SPEC WHEN PFRMD 09/19/2019 Colonoscopy ESOPHAGOGASTRODUODENOSCOPY TRANSORAL DIAGNOSTIC 02/11/2010 EGD EXC BREAST LES PREOP PLMT RAD MARKER OPEN 1 LES 07-30-13 RIGHT LIG/TRNSXJ FLP TUBE ABDL/VAG APPR UNI/BI Tubal ligation TONSILLECTOMY PRIMARY/SECONDARY <AGE 10 Tonsillectomy TOTAL ABDOMINAL HYSTERECT W/WO RMVL TUBE OVARY 2002 GREGORIO and BSO Atypical hyperplasia FAMILY HISTORY Problem Relation Age of Onset Hypertension Mother Heart Failure Mother other (Other) Father aplastic anemia pancytopenia other (leukemia) Father 10/2010 Hypertension Sister Diabetes Brother Diabetes Brother None Brother Heart Maternal Grandmother Diabetes Maternal Grandmother Heart Paternal Grandmother Colon Cancer Paternal Uncle Social History Tobacco Use Smoking status: Never Smokeless tobacco: Never Vaping Use Vaping Use: Never used Substance Use Topics Alcohol use: No Drug use: No Current Outpatient Medications Medication Sig cyclobenzaprine (FLEXERIL) 10 mg tablet Take 1 tablet by mouth three times daily as needed for muscle spasm. atenolol (TENORMIN) 25 mg tablet Take 1 tablet by mouth once daily. naproxen (NAPROSYN) 500 mg tablet Take 1 tablet by mouth twice daily as needed (for pain/inflammation). Take with food. meclizine (ANTIVERT) 12.5 mg tab TAKE ONE TABLET BY MOUTH THREE TIMES DAILY NEEDED FOR DIZZINESS pramipexole (MIRAPEX) 0.25 mg tablet 1-2 tablets three times/day as needed for restless legs apixaban (ELIQUIS ORAL) Take by mouth. Per office visit note 02/14/2019 apremilast (OTEZLA) 30 mg tablet Take 30 mg by mouth once daily. Acidophilus-Pectin, [place] 25 million cell -100 mg tab Take 1 tablet by mouth once daily. No current facility-administered medications for this visit. I have confirmed and edited, if necessary, the PFSH obtained by others. REVIEW OF SYSTEMS CONSTITUTIONAL: Negative for unintentional weight loss, malaise or fevers HEENT: Negative for frequent/significant headaches, changes in hearing/vision, nose bleeds or other nasal problems RESPIRATORY: Negative for cough, hemoptysis, wheezing or dyspnea CARDIOVASCULAR: Negative for chest pain, palpitations, syncope or lightheadedness GI: See HPI : Negative for dysuria, polyuria, incontinence or hematuria MUSCULOSKELETAL: Negative for arthralgia or myalgia INTEGUMENTARY/SKIN: Negative for rash or skin lesion HEMATOLOGY/LYMPHOLOGY: Negative for prolonged bleeding, easy bruising or swollen nodes ENDOCRINE: Negative for cold/heat intolerance, polydipsia or goiter NEURO: Negative for encephalopathy, tremor or gait abnormality PSYCH: Negative for new changes in mood or affect PHYSICAL EXAM: BP 133/64 (BP Cuff Size: Large Adult) Pulse 76 Wt 99.8 kg (220 lb) BMI 36.33 kg/m Gen: Comfortable female in NAD Head: Normocephalic, atraumatic Skin: No jaundice, rashes or skin lesions Eyes: Sclera anicteric, conjunctiva pink Mouth: No thrush Neck: Supple, no palpable lymphadenopathy or goiter Heart: RRR, no murmurs, rubs or gallops Lungs: CTAB, non-labored breathing Abd: Soft, non-distended, non-tender, bowel sounds present, no palpable masses or organomegaly Ext: No lower extremity edema, clubbing or cyanosis. Extremities are warm and well-perfused Neuro: Alert and oriented, no tremor or gross focal motor deficits Psych: Congruent mood and affect, appropriate insight and judgement ASSESSMENT/PLAN: Pily Emery is a 66 year old female with a history of obesity, Afib (on Eliquis), DCIS, anxiety, psoriatic arthritis, distal esophageal stricture (s/p TTS dilation to 18 mm with subsequent improvement) and NAFLD who is referred to the GI clinic for evaluation and management of chronic intermittent dysphagia. 1) Dysphagia to solids After her last dilation in 2009, she had relief for 8 years. Solid food dysphagia recurred 3 years ago. Hx of one self-limiting food impaction. Upper enteroscopy (2019) was negative for visible strictures. Eosinophilic esophagitis was ruled out with normal esophageal biopsies. No empiric dilation performed. --Repeat EGD with empiric dilation --Hold Eliquis 2 days prior to procedure --Chew food slowly and completely --If this is not helpful, trial of PPI and esophageal manometry will be advised 2) Mild intermittent constipation --Start metamucil 2-3 tsp/day --Drink at least 64 oz water every day Procedure risks were discussed with the patient in great detail, including but not limited to, the risk of sedation, bleeding, perforation, infection and missed lesions. Patient is agreeable with proceeding. Follow up in 4 months Benjamín Barrios MD Associate Staff, Department of Gastroenterology and Hepatology [facility] [place] documented in this encounter [facility] 04-22-2022 Note HNO ID: [id number] Author: RT Corey(R) Service: ? Author Type: Technologist Type: Progress Notes Filed: 04/22/2022 11:03 AM Note Text: Radiology Service Progress Note PATIENT NAME: Pily Emery DATE OF SERVICE: April 22, 2022 TIME: 11:03 AM PATIENT IDENTITY VERIFICATION COMPLETED USING TWO (2) IDENTIFIERS: Name and Date of confirmed by patient verbally. FALL SCREENING: Has the patient had 2 falls in the last year or 1 fall with injury or currently using an Ambulatory Assistive Device (Walker, Cane, Wheelchair, Crutches, etc.)? No PATIENT GENDER DATA: Female. status: : No status: NO. PATIENT RELEVANT IMPLANT DATA REVIEWED: Not Applicable RADIOLOGY DEPARTMENT: General X-ray: Exam(s) Completed: Spine X-Ray(s): Lumbar AP / LAT / L5-S1 PERIPHERAL IV DATA: Not applicable SIGNED BY: RT Corey(R) April 22, 2022 11:03 AM [facility] 04-22-2022 Note HNO ID: [id number] Author: rFeeman Coyle APRN.WILDLIFE ECOLOGY PROFESSOR Service: ? Author Type: Nurse Practitioner Type: Progress Notes Filed: 04/22/2022 10:41 AM Note Text: Chief Complaint Patient presents with: Acute Visit: LEFT ring finger AND SHILOH toes tingling, numbness intermittent HPI Pily Emery is a 66 year old female who presents here today for Above Complaints Patient stating that her ring finger on her left hand has developed discoloration. Also complaints of tingling in that sole digit. Ongoing for 1 day. Purple in color in the mid section of the digit. She shows me a picture on her phone. No other fingers were involved. No known trauma to the finger or hand. Admits to shoveling the snow the days prior but did not have any problems. No pain in the finger. No loss of ROM. Also mentioning that her bilateral toes. Intermittent. No history of diabetes. History of bunions. Sometimes her toes feel cold. Soaking. Can be both feet at the same time. Cannot tell me if all of the toes are involved. She does have a history of psoriatic arthritis. Patient also stating that she has some right breast pain. She has a prothesis in the breast. Some pressure in her area around the nipple. Does have a history of mastitis. Had a normal diagnostic mammogram in 02/23/2022. She states that she fell in December and had some pain in the area. She feels like it is now. Past medical history, appointments, medications, allergies reviewed. EXAM: BP 122/77 Pulse 79 Temp 36.7 ?C (98.1 ?F) (Left Tympanic) Resp 16 Wt 101.2 kg (223 lb) SpO2 99% BMI 36.83 kg/m? General Appearance: Well appearing, alert, in no acute distress, well-hydrated, well nourished.. Skin: Left hand: Ring Finger has minimal pigmentation changes. Not warm to touch. Breast: Positive findings: Right breast: Swelling and moderate tenderness of the areola. No nipple discharge, implant palpated Costume Design Teacher offered:Patient accepts, visit chaperoned by Vanna Melara MA. Peripheral Pulses: Normal, Pulses: radial=4/4 of left hand. ASSESSMENT/PLAN: 1. Numbness and tingling of foot - ICD9: 782.0, ICD10: R20.0, R20.2 (primary diagnosis) - Lower back disease vs foot disease. Can follow up with podiatry if xray and blood work is normal. - XR LUMBAR GENERAL 3V AP/LAT/L5-S1 - TSH BLD - CBC + DIFF - COMP METABOLIC PANEL - HGB A1C - VITAMIN B12 BLOOD 2. Discoloration of skin of finger - ICD9: 709.00, ICD10: L81.9 - Self limiting. Not following classic Reynaulds vs Blue finger. - TSH BLD - CBC + DIFF - COMP METABOLIC PANEL - HGB A1C - COTY BLOOD - C-REACTIVE PROTEIN (CRP) - SED RATE WESTERGREN 3. Mastitis - ICD9: 611.0, ICD10: N61.0 - Cover for mastitis given history. Start Keflex. - CEPHALEXIN 500 MG CAPSULE 4. Antibiotic-induced yeast infection - ICD9: 112.9, E930.9, ICD10: B37.9, T36.95XA - As needed - FLUCONAZOLE 150 MG TABLET Freeman Coyle APRN.WILDLIFE ECOLOGY PROFESSOR RTO as needed This note was partly generated using Tri[employer] voice recognition dictation and may contain some misspelled or inaccurate words missed on review. [facility] 04-22-2022 Instructions Freeman Coyle APRN.CNP - 04/22/2022 10:31 AM EST Get blood work Get xray completed Start Keflex for mastits I sent a prescription for Diflucan incase you develop a yeast infection. Freeman Coyle APRN.CNP documented in this encounter [facility] 04-22-2022 History of Presen t illness Narrative Chief Complaint Patient presents with: Acute Visit: LEFT ring finger & SHILOH toes tingling, numbness intermittent HPI Pily Emery is a 66 year old female who presents here today for Above Complaints Patient stating that her ring finger on her left hand has developed discoloration. Also complaints of tingling in that sole digit. Ongoing for 1 day. Purple in color in the mid section of the digit. She shows me a picture on her phone. No other fingers were involved. No known trauma to the finger or hand. Admits to shoveling the snow the days prior but did not have any problems. No pain in the finger. No loss of ROM. Also mentioning that her bilateral toes. Intermittent. No history of diabetes. History of bunions. Sometimes her toes feel cold. Soaking. Can be both feet at the same time. Cannot tell me if all of the toes are involved. She does have a history of psoriatic arthritis. Patient also stating that she has some right breast pain. She has a prothesis in the breast. Some pressure in her area around the nipple. Does have a history of mastitis. Had a normal diagnostic mammogram in 02/23/2022. She states that she fell in December and had some pain in the area. She feels like it is now. Past medical history, appointments, medications, allergies reviewed. EXAM: BP 122/77 Pulse 79 Temp 36.7 C (98.1 F) (Left Tympanic) Resp 16 Wt 101.2 kg (223 lb) SpO2 99% BMI 36.83 kg/m General Appearance: Well appearing, alert, in no acute distress, well-hydrated, well nourished.. Skin: Left hand: Ring Finger has minimal pigmentation changes. Not warm to touch. Breast: Positive findings: Right breast: Swelling and moderate tenderness of the areola. No nipple discharge, implant palpated Costume Design Teacher offered:Patient accepts, visit chaperoned by Vanna Melara MA. Peripheral Pulses: Normal, Pulses: radial=4/4 of left hand. ASSESSMENT/PLAN: 1. Numbness and tingling of foot - ICD9: 782.0, ICD10: R20.0, R20.2 (primary diagnosis) - Lower back disease vs foot disease. Can follow up with podiatry if xray and blood work is normal. - XR LUMBAR GENERAL 3V AP/LAT/L5-S1 - TSH BLD - CBC + DIFF - COMP METABOLIC PANEL - HGB A1C - VITAMIN B12 BLOOD 2. Discoloration of skin of finger - ICD9: 709.00, ICD10: L81.9 - Self limiting. Not following classic Reynaulds vs Blue finger. - TSH BLD - CBC + DIFF - COMP METABOLIC PANEL - HGB A1C - COTY BLOOD - C-REACTIVE PROTEIN (CRP) - SED RATE WESTERGREN 3. Mastitis - ICD9: 611.0, ICD10: N61.0 - Cover for mastitis given history. Start Keflex. - CEPHALEXIN 500 MG CAPSULE 4. Antibiotic-induced yeast infection - ICD9: 112.9, E930.9, ICD10: B37.9, T36.95XA - As needed - FLUCONAZOLE 150 MG TABLET Freeman Coyle APRN.WILDLIFE ECOLOGY PROFESSOR RTO as needed This note was partly generated using Triporation voice recognition dictation and may contain some misspelled or inaccurate words missed on review. documented in this encounter [facility] 03-24-2022 Miscellaneous Notes Faxed. Mary Ann Campoverde Ma Form done Alessio Gomez MD Type of form: Rx for Mastectomy Products. [facility]. Form received via fax When form is completed, Fax form to [phone]. Form has been forwarded to Physician Desk: Dr. Gomez. Printed most recent OV and last wellness from 12/30/20. Chaya Argueta Ma documented in this encounter [facility] 03-08-2022 Miscellaneous Notes Orders faxed to [employer] at [phone]. Mary Ann Campoverde Ma Routed to PCP to sign. Will call and fax tomorrow. Chaya Argueta Ma Orders printed Alessio Gomez MD Phone number given below. I ordered the two orders that were done previously. Not sure which one it needs to be. Chaya Argueta Ma Phone number [phone]. Gabi Jolly LPN Order was placed at 12/30/20 [facility]. I do not see a phone number/fax number for [employer]. Please place order, will have to call pt for P#. Chaya Argueta Ma Pt called and states she would like an order for bras 4 to 6 bras and prosthesis sent to [employer] . She has to have this done once a year. Please call pt when this order has been sent above. She has to make apt with [employer] to get the above. Gabi Jolly LPN documented in this encounter [facility] 02-23-2022 Note HNO ID: [id number] Author: RT Mirna(R) Service: ? Author Type: Clinical Nutrition Manager Type: Progress Notes Filed: 02/23/2022 1:04 PM Note Text: Radiology Service Progress Note PATIENT NAME: Pily Emery DATE OF SERVICE: February 23, 2022 TIME: 1:04 PM PATIENT IDENTITY VERIFICATION COMPLETED USING TWO (2) IDENTIFIERS: Name and Date of confirmed by patient verbally. FALL SCREENING: Has the patient had 2 falls in the last year or 1 fall with injury or currently using an Ambulatory Assistive Device (Walker, Cane, Wheelchair, Crutches, etc.)? No PATIENT GENDER DATA: Female. status: : No status: NO. PATIENT RELEVANT IMPLANT DATA REVIEWED: Not Applicable RADIOLOGY DEPARTMENT: Mammography PERIPHERAL IV DATA: Not applicable SIGNED BY: RT Mirna(R) February 23, 2022 1:04 PM [facility] 02-23-2022 History of Presen t illness Narrative Radiology Service Progress Note PATIENT NAME: Pily Emery DATE OF SERVICE: February 23, 2022 TIME: 1:04 PM PATIENT IDENTITY VERIFICATION COMPLETED USING TWO (2) IDENTIFIERS: Name and Date of confirmed by patient verbally. FALL SCREENING: Has the patient had 2 falls in the last year or 1 fall with injury or currently using an Ambulatory Assistive Device (Walker, Cane, Wheelchair, Crutches, etc.)? No PATIENT GENDER DATA: Female. status: : No status: NO. PATIENT RELEVANT IMPLANT DATA REVIEWED: Not Applicable RADIOLOGY DEPARTMENT: Mammography PERIPHERAL IV DATA: Not applicable SIGNED BY: RT Mirna(R) February 23, 2022 1:04 PM documented in this encounter [facility] 01-12-2022 Miscellaneous Notes Call to pt and notified her of results. Pt given Diagnostic Mamm call back number. Made aware to call to schedule. Verbalized understanding. Chaya Argueta Ma Please notify patient that her mammogram showed some indeterminate areas so the radiologist recommended additional views; diagnostic mammograms and ultrasounds ordered Alessio Gomez MD documented in this encounter [facility] 01-12-2022 Miscellaneous Notes January 12, 2022 PID: [id number] Pily Emery [address] [place] [address] Dear Ms. Emery, Your recent breast imaging exam on 01/11/2022 showed a possible finding that requires additional imaging studies for a complete evaluation. Most such findings are probably benign (not cancer). If you have a healthcare provider who ordered/prescribed your screening mammogram: Please call [phone] or [phone]: [phone] to schedule an appointment for your additional imaging (if you have not already done so). If you DO NOT have a healthcare provider (ie you did not have an order/prescription for your screening mammogram): Please call to schedule an appointment for your additional imaging (if you have not already done so). You must have an order/prescription from your physician when calling to schedule your appointment. If your order/prescription is not electronic, you must bring the hard copy with you on the day of your exam to avoid delays. Your imaging studies and reports are kept on file at [facility] as part of your permanent medical record, and are available for your continuing care. Thank you for allowing us to help in meeting your health care needs. Sincerely, Dr. Segal Interpreting Radiologist [facility] (Additional imaging) documented in this encounter [facility] 01-11-2022 Note HNO ID: [id number] Author: RT Jan(R) Service: ? Author Type: Technologist Type: Progress Notes Filed: 01/11/2022 2:42 PM Note Text: Radiology Service Progress Note PATIENT NAME: Pily Emery DATE OF SERVICE: January 11, 2022 TIME: 2:28 PM PATIENT IDENTITY VERIFICATION COMPLETED USING TWO (2) IDENTIFIERS: Name and Date of confirmed by patient verbally. FALL SCREENING: Has the patient had 2 falls in the last year or 1 fall with injury or currently using an Ambulatory Assistive Device (Walker, Cane, Wheelchair, Crutches, etc.)? No PATIENT GENDER DATA: Female. status: : No status: NO. PATIENT RELEVANT IMPLANT DATA REVIEWED: Not Applicable RADIOLOGY DEPARTMENT: Mammography PERIPHERAL IV DATA: Not applicable SIGNED BY: RT Jan(R) January 11, 2022 2:28 PM [facility] 01-11-2022 History of Presen t illness Narrative Radiology Service Progress Note PATIENT NAME: Pily Emery DATE OF SERVICE: January 11, 2022 TIME: 2:28 PM PATIENT IDENTITY VERIFICATION COMPLETED USING TWO (2) IDENTIFIERS: Name and Date of confirmed by patient verbally. FALL SCREENING: Has the patient had 2 falls in the last year or 1 fall with injury or currently using an Ambulatory Assistive Device (Walker, Cane, Wheelchair, Crutches, etc.)? No PATIENT GENDER DATA: Female. status: : No status: NO. PATIENT RELEVANT IMPLANT DATA REVIEWED: Not Applicable RADIOLOGY DEPARTMENT: Mammography PERIPHERAL IV DATA: Not applicable SIGNED BY: RT Jan(R) January 11, 2022 2:28 PM documented in this encounter [facility] 12-28-2021 Miscellaneous Notes Pt sent [employer] message notifying her that Mammogram order has been placed and to call main number to have them assist her in scheduling. Chaya Argueta Ma Mammogram order filed Alessio Gomez MD Patient requesting new order for mammogram screening. Current order expires this week and no available appts until after order expires. Please call patient with update, and assist with warm transfer to scheduling, if able. Thank you. documented in this encounter [facility] 12-15-2021 Miscellaneous Notes Patient notified of results, verbalizes understanding of instructions. Shoshana Padilla LPN Can you please call the patient and let her know that I reviewed her x-ray results. Postsurgical changes right knee without interval complication. No acute fracture or evidence for prosthetic loosening. Small amount of joint fluid. Degenerative change and chondrocalcinosis visualized left knee. I would recommend a follow-up with her orthopedist if the pain does not improve with rest, ice and elevation. She can continue to use Tylenol as needed for pain. Please let me know if she has any questions. Thank you. Ton Ni APRN.DONNIE documented in this encounter [facility] 12-09-2021 Instructions Ton Ni APRN.DONNIE - 12/09/2021 2:49 PM EDT 1.) Get xray of the right knee. 2.) Continue to supportive care at home for injuries. May apply ice to the areas that are tender. May use tylenol as needed. 3.) Follow up pending test results or sooner as needed. documented in this encounter [facility] 12-09-2021 History of Presen t illness Narrative This is a 66 year old female who presents today with: Patient presents with: Acute Visit: Tripped over puppy HISTORY OF PRESENT ILLNESS: Pily Emery is a 66 year old female. Patient presents with: Acute Visit: Tripped over puppy Here in the office after a fall over the weekend. Tripped over her sisters puppy, fell onto right side hitting breast, elbow, and knee. Has knee implant , pain has been ongoing. Knee is stiff and uncomfortable at night. Bruising on the breast. Currently taking Eliquis for Afib. Did not hit head. Able to ambulate. PAST MEDICAL HISTORY: PAST MEDICAL HISTORY Diagnosis Date Abdominal pain, right lower quadrant 2009 intermittant Alopecia Anxiety state, unspecified Arrhythmia Breast cancer (HCC) Diverticulosis of colon (without mention of hemorrhage) Fatty liver disease, non-alcoholic 02/02/2010 Hyperlipidemia LDL goal < 130 02/03/2011 Internal hemorrhoids without mention of complication Obesity 04/06/2012 Osteopenia, senile 02/26/2021 Repeat in 2-4 years from 02/2021 Psoriasis 2009 Psoriatic arthritis (HCC) 03/08/2010 Restless legs syndrome 10/21/2014 Stricture and stenosis of esophagus Unilateral primary osteoarthritis, left knee 2018 PAST SURGICAL HISTORY Procedure Laterality Date ARTHRP KNE CONDYLE&PLATU MEDIAL&LAT COMPARTMENTS Right 2017 BREAST LUMPECTOMY HX 06/2013 BX BREAST W/DEVICE 1ST LESION STEREOTACTIC GUID 07-11-13 DELIVERY ONLY , low cervical X3 COLONOSCOPY FLX DX W/COLLJ SPEC WHEN PFRMD 03/04/09 COLONOSCOPY FLX DX W/COLLJ SPEC WHEN PFRMD 09/19/2019 Colonoscopy ESOPHAGOGASTRODUODENOSCOPY TRANSORAL DIAGNOSTIC 02/11/2010 EGD EXC BREAST LES PREOP PLMT RAD MARKER OPEN 1 LES 07-30-13 RIGHT LIG/TRNSXJ FLP TUBE ABDL/VAG APPR UNI/BI Tubal ligation TONSILLECTOMY PRIMARY/SECONDARY <AGE 12 Tonsillectomy TOTAL ABDOMINAL HYSTERECT W/WO RMVL TUBE OVARY 2002 GREGORIO and BSO Atypical hyperplasia ALLERGIES Penicillins MEDICATIONS Current Outpatient Medications Medication Sig atenolol (TENORMIN) 25 mg tablet Take 1 tablet by mouth once daily. benzonatate (TESSALON PERLES) 100 mg capsule Take 2 capsules by mouth three times daily as needed. (Patient not taking: Reported on 11/10/2021) hyoscyamine (LEVSIN) 0.125 mg tablet Take one tablet 30 minutes before meals, when needed. cyclobenzaprine (FLEXERIL) 10 mg tablet Take 1 tablet by mouth three times daily as needed for muscle spasm. naproxen (NAPROSYN) 500 mg tablet Take 1 tablet by mouth twice daily as needed (for pain/inflammation). Take with food. meclizine (ANTIVERT) 12.5 mg tab TAKE ONE TABLET BY MOUTH THREE TIMES DAILY NEEDED FOR DIZZINESS pramipexole (MIRAPEX) 0.25 mg tablet 1-2 tablets three times/day as needed for restless legs apixaban (ELIQUIS ORAL) Take by mouth. Per office visit note 02/14/2019 apremilast (OTEZLA) 30 mg tablet Take 30 mg by mouth once daily. Acidophilus-Pectin, [place] 25 million cell -100 mg tab Take 1 tablet by mouth once daily. No current facility-administered medications for this visit. FAMILY HISTORY Problem Relation Age of Onset Hypertension Mother Heart Failure Mother other (Other) Father aplastic anemia pancytopenia other (leukemia) Father 10/2010 Hypertension Sister Diabetes Brother Diabetes Brother None Brother Heart Maternal Grandmother Diabetes Maternal Grandmother Heart Paternal Grandmother Colon Cancer Paternal Uncle Social History Tobacco Use Smoking status: Never Smokeless tobacco: Never Vaping Use Vaping Use: Never used Substance Use Topics Alcohol use: No Drug use: No REVIEW OF SYSTEMS GENERAL: No weight loss, malaise or fevers/chills HEENT: Negative for frequent or significant headaches, No changes in hearing or vision. NECK: Negative for lumps, goiter, pain and significant neck swelling RESPIRATORY: Negative for cough, hemoptysis, wheezing, dyspnea or shortness of breath CARDIOVASCULAR: Negative for chest pain, leg swelling, orthopnea, or palpitations GI: No nausea, vomiting, or diarrhea/constipation. No hematochezia/melena. No heartburn or reflux symptoms. : No history of dysuria, frequency or incontinence MUSCULOSKELETAL: + Right elbow, breast, and knee pain SKIN: Negative for lesions, rash, and itching ENDOCRINE: Negative for cold or heat intolerance, polyuria, polydipsia and goiter NEURO: No history of headaches, syncope, paralysis, seizures or tremors MOOD: Negative for depression, anxiety, or suicidal ideation. EXAM: BP 118/68 Pulse 97 Resp 16 Wt 102.5 kg (226 lb) SpO2 98% BMI 37.32 kg/m PHYSICAL EXAM: General Appearance: Well appearing, alert, in no acute distress, well-hydrated, well nourished. Skin: Skin color, texture, turgor normal, no suspicious rashes or lesions. Head: Normocephalic, no masses, lesions, tenderness or abnormalities. Eyes: Anicteric sclera. Extraocular movements are intact. Lungs: Lungs clear to auscultation. No wheezing, rhonchi, rales. Heart: RRR without murmur, gallop, or rubs. No ectopy. Breast: Right breast severely bruised due to fall. No nodules palpated or nipple discharge. Extremities: No deformities, edema, skin discoloration, clubbing or cyanosis. Good capillary refill. Musculoskeletal: Right elbow non-tender, full ROM. Right knee ecchymosis noted in various stages of healing, tender on distal aspect of hardware. Full ROM. Peripheral Pulses: Normal, Capillary refill <2secs, strong peripheral pulses, Pulses palpable. Neurologic: Gait normal. Sensation grossly intact. ASSESSMENT/PLAN: 1. Fall, initial encounter - ICD9: E888.9, ICD10: W19.XXXA (primary diagnosis) - Continue supportive care at home. May use Tylenol as needed for pain and apply ice to injuries. 2. Acute pain of right knee - ICD9: 719.46, ICD10: M25.561 - Get xray of right knee to evaluate knee hardware. - XR KNEE GENERAL 4V AP BOTH/PA BOTH/LAT/MERC RIGHT 3. Contusion of right breast, initial encounter - ICD9: 922.0, ICD10: S20.01XA - Denied wanting any imaging at this time, will be having mammogram completed soon. Follow-up pending test results or sooner as needed. Discussed treatment plan and patient voices understanding. Patient's questions answered appropriately. Medications and potential side effects were discussed and patient voices understanding. Ton Ni APRN.DONNIE This note was partially generated using [employer] voice recognition system. Note was reviewed for accuracy. There may be minor misspellings or grammar miscues with [employer] voice recognition. documented in this encounter [facility] 12-08-2021 Miscellaneous Notes Protocol recommends see provider in 24 hours. Pt scheduled with Ton Ni [employer] tomorrow at 240 pm. Care plan reviewed with patient. Patient voices understanding. Advised patient that if symptoms get worse to be evaluated in Urgent Care or ER. Reason for Disposition [1] No prior tetanus shots (or is not fully vaccinated) AND [2] any wound (e.g., cut or scrape) Answer Assessment - Initial Assessment Questions 1. MECHANISM: Puppy wrapped around her feet and she fell. 2. DOMESTIC VIOLENCE AND ELDER ABUSE SCREENING: Pt denies. 3. ONSET: When did the fall happen? Monday afternoon 4. LOCATION: R breast, R elbow, and R knee all hit the ground. 5. INJURY: Yes she hurt herself when you fell. Injured R breast and R knee, they are black and blue. States breast is all different colors. R knee had some scrapes. Sister cleaned with Saline and covered with Neosporin and covered with bandages. Pt reports pain when laying down. States knee is stiff, but that comes with her knee replacement. 6. PAIN: - NONE (0): no pain - MILD (1-3): doesn't interfere with normal activities - MODERATE (4-7): interferes with normal activities or awakens from sleep - SEVERE (8-10): excruciating pain, unable to do any normal activities Knee pain is 5-6/10 right now, walking is stiff. If she touches her knee it hurts. Her breast if it's touched or she rolls over on it's a 5-6/10, otherwise it doesn't hurt. 7. SIZE: For cuts, bruises, or swelling, ask: How large is it? (e.g., inches or centimeters) Knee the scrapes are about an inch. The bruising isn't bad just on the kneecap area on top. The bruising around breast is the whole bottom and sides of breast, only the top rib hurts. 8. : Postmenopausal 9. OTHER SYMPTOMS: Pt states last night she felt palpitations in her chest. Pt reports she is on Eliquis. 10. CAUSE: Pt tripped over a puppy. Protocols used: Falls and Xvresnu-BDOGA-ND documented in this encounter [facility] 11-22-2021 Instructions Ton Ni APRN.[facility] - 11/22/2021 11:07 AM EDT 1.) Covid flu test will be back by tomorrow. 2.) May use tessalon Perles for cough as needed. 3.) Started Doxycyline, take as directed. 4.) May use OTC cold and cough medication as needed for symptoms management. 5.) Follow up as needed. documented in this encounter [facility] 11-22-2021 History of Presen t illness Narrative This is a 66 year old female who presents today with: Patient presents with: Acute Visit: cough, chest congetlion HISTORY OF PRESENT ILLNESS: Pily Emery is a 66 year old female. Patient presents with: Acute Visit: cough, chest congetlion Here in the office for ongoing symptoms. Was seen on 11/10/2021 by myself for URI symptoms. denied wanting covid testing at that time. Had rapid at work which was negative.Chest xray was negative and finished zpack. Refers that the medication helped but never completelty resolved her symptoms. Using Mucinex. Having ongoing cough and post nasal drip. No fever or chills. PAST MEDICAL HISTORY: PAST MEDICAL HISTORY Diagnosis Date Abdominal pain, right lower quadrant 2008 intermittant Alopecia Anxiety state, unspecified Arrhythmia Breast cancer (HCC) Diverticulosis of colon (without mention of hemorrhage) Fatty liver disease, non-alcoholic 02/02/2010 Hyperlipidemia LDL goal < 130 02/03/2011 Internal hemorrhoids without mention of complication Obesity 04/06/2012 Osteopenia, senile 02/26/2021 Repeat in 2-4 years from 02/2021 Psoriasis 2009 Psoriatic arthritis (HCC) 03/08/2010 Restless legs syndrome 10/21/2014 Stricture and stenosis of esophagus Unilateral primary osteoarthritis, left knee 2018 PAST SURGICAL HISTORY Procedure Laterality Date ARTHRP KNE CONDYLE&PLATU MEDIAL&LAT COMPARTMENTS Right 2017 BREAST LUMPECTOMY HX 06/2013 BX BREAST W/DEVICE 1ST LESION STEREOTACTIC GUID 07-11-13 DELIVERY ONLY , low cervical X3 COLONOSCOPY FLX DX W/COLLJ SPEC WHEN PFRMD 03/04/09 COLONOSCOPY FLX DX W/COLLJ SPEC WHEN PFRMD 09/19/2019 Colonoscopy ESOPHAGOGASTRODUODENOSCOPY TRANSORAL DIAGNOSTIC 02/11/2010 EGD EXC BREAST LES PREOP PLMT RAD MARKER OPEN 1 LES 5-14 RIGHT LIG/TRNSXJ FLP TUBE ABDL/VAG APPR UNI/BI Tubal ligation TONSILLECTOMY PRIMARY/SECONDARY <AGE 12 Tonsillectomy TOTAL ABDOMINAL HYSTERECT W/WO RMVL TUBE OVARY 2002 GREGORIO and BSO Atypical hyperplasia ALLERGIES Penicillins MEDICATIONS Current Outpatient Medications Medication Sig atenolol (TENORMIN) 25 mg tablet Take 1 tablet by mouth once daily. hyoscyamine (LEVSIN) 0.125 mg tablet Take one tablet 30 minutes before meals, when needed. cyclobenzaprine (FLEXERIL) 10 mg tablet Take 1 tablet by mouth three times daily as needed for muscle spasm. naproxen (NAPROSYN) 500 mg tablet Take 1 tablet by mouth twice daily as needed (for pain/inflammation). Take with food. meclizine (ANTIVERT) 12.5 mg tab TAKE ONE TABLET BY MOUTH THREE TIMES DAILY NEEDED FOR DIZZINESS pramipexole (MIRAPEX) 0.25 mg tablet 1-2 tablets three times/day as needed for restless legs apixaban (ELIQUIS ORAL) Take by mouth. Per office visit note 02/14/2019 apremilast (OTEZLA) 30 mg tablet Take 30 mg by mouth once daily. Acidophilus-Pectin, [place] 25 million cell -100 mg tab Take 1 tablet by mouth once daily. benzonatate (TESSALON PERLES) 100 mg capsule Take 2 capsules by mouth three times daily as needed. (Patient not taking: Reported on 11/10/2021) No current facility-administered medications for this visit. FAMILY HISTORY Problem Relation Age of Onset Hypertension Mother Heart Failure Mother other (Other) Father aplastic anemia pancytopenia other (leukemia) Father 10/2010 Hypertension Sister Diabetes Brother Diabetes Brother None Brother Heart Maternal Grandmother Diabetes Maternal Grandmother Heart Paternal Grandmother Colon Cancer Paternal Uncle Social History Tobacco Use Smoking status: Never Smokeless tobacco: Never Vaping Use Vaping Use: Never used Substance Use Topics Alcohol use: No Drug use: No REVIEW OF SYSTEMS GENERAL: No weight loss, malaise or fevers/chills HEENT: Negative for frequent or significant headaches, No changes in hearing or vision. NECK: Negative for lumps, goiter, pain and significant neck swelling RESPIRATORY: + cough CARDIOVASCULAR: Negative for chest pain, leg swelling, orthopnea, or palpitations GI: No nausea, vomiting, or diarrhea/constipation. No hematochezia/melena. No heartburn or reflux symptoms. : No history of dysuria, frequency or incontinence MUSCULOSKELETAL: Negative for joint pain or swelling. SKIN: Negative for lesions, rash, and itching ENDOCRINE: Negative for cold or heat intolerance, polyuria, polydipsia and goiter NEURO: No history of headaches, syncope, paralysis, seizures or tremors MOOD: Negative for depression, anxiety, or suicidal ideation. EXAM: BP 118/80 Pulse (!) 59 Resp 16 SpO2 100% PHYSICAL EXAM: General Appearance: Well appearing, alert, in no acute distress, well-hydrated, well nourished. Skin: Skin color, texture, turgor normal, no suspicious rashes or lesions. Head: Normocephalic, no masses, lesions, tenderness or abnormalities. Eyes: Anicteric sclera. Extraocular movements are intact. Neck: Supple, no adenopathy; thyroid symmetric, normal size, no bruits. Lungs: Lungs clear to auscultation. No wheezing, rhonchi, rales. Heart: RRR without murmur, gallop, or rubs. No ectopy. Extremities: No deformities, edema, skin discoloration, clubbing or cyanosis. Good capillary refill. Peripheral Pulses: Normal, Capillary refill <2secs, strong peripheral pulses, Pulses palpable. Neurologic: Gait normal. Sensation grossly intact. ASSESSMENT/PLAN: 1. Acute bronchitis, unspecified organism - ICD9: 466.0, ICD10: J20.9 (primary diagnosis) - Due to length of symptoms, start Doxycyline. - May use Tessalon Perles as needed for cough. - COVID WITH FLUA+B, ROUTINE - BENZONATATE 100 MG CAPSULE - DOXYCYCLINE HYCLATE 100 MG TABLET 2. Acute cough - ICD9: 786.2, ICD10: R05.1 - Same plan as #1. Follow-up pending test results or sooner as needed. Discussed treatment plan and patient voices understanding. Patient's questions answered appropriately. Medications and potential side effects were discussed and patient voices understanding. Ton Ni APRN.DONNIE The patient indicates understanding of these issues and agrees with the plan. documented in this encounter [facility] 11-12-2021 History of Presen t illness Narrative CC: Patient presents with: Cough: Pt seen 11/10/2021 Zpack day 3, reported increased coughing, fever, chills, denied SOB, chest pain. Patient was seen by PCP, is currently on zpak only taken two doses did not take today's does yet because she did not want to drive on medication. Patient has an xray order but has not gotten it taken yet. HPI: Pily Emery is a 66 year old female who presents to the office with complaint of cough, nonproductive, fever, and chills for a week. Symptoms are worsening Associated symptoms includes cough. Denies nausea, vomiting , and diarrhea. Treatments tried include z surinder with no relief of symptoms. Sick contacts: unknown. History of asthma, frequent episodes of bronchitis, chronic bronchitis, bronchiectasis or COPD: No Smoker: No Seasonal/environmental allergies: No The ROS is otherwise negative. The patient's pmh, medications, allergies, and past visits are reviewed. PHYSICAL EXAM: BP 118/76 Pulse 88 Temp 36.7 C (98.1 F) Resp 18 Wt 100.2 kg (220 lb 12.8 oz) SpO2 97% BMI 36.46 kg/m General appearance: alert, cooperative, pleasant, in no acute distress Head: Normocephalic Eyes: EOM's intact, conjunctiva pink and moist, no icterus, sclera white, non-injected Ears: Right ear: External ear/canal- Normal, TM - clear with good landmarks. Left ear: External ear/canal- Normal, TM - clear with good landmarks Oropharynx:moist without lesions, No erythema, exudates or tonsillar hypertrophy. Heart: Negative. RRR without obvious murmur, gallop, or rubs. No ectopy. Lungs: clear to auscultation, without rales or wheeze, good air exchange PAST MEDICAL HISTORY Diagnosis Date Abdominal pain, right lower quadrant 2008 intermittant Alopecia Anxiety state, unspecified Arrhythmia Breast cancer (HCC) Diverticulosis of colon (without mention of hemorrhage) Fatty liver disease, non-alcoholic 02/02/2010 Hyperlipidemia LDL goal < 130 02/03/2011 Internal hemorrhoids without mention of complication Obesity 04/06/2012 Osteopenia, senile 02/26/2021 Repeat in 2-4 years from 02/2021 Psoriasis 2009 Psoriatic arthritis (HCC) 03/08/2010 Restless legs syndrome 10/21/2014 Stricture and stenosis of esophagus Unilateral primary osteoarthritis, left knee 2018 PAST SURGICAL HISTORY Procedure Laterality Date ARTHRP KNE CONDYLE&PLATU MEDIAL&LAT COMPARTMENTS Right 2017 BREAST LUMPECTOMY HX 06/2013 BX BREAST W/DEVICE 1ST LESION STEREOTACTIC GUID 07-11-13 DELIVERY ONLY , low cervical X3 COLONOSCOPY FLX DX W/COLLJ SPEC WHEN PFRMD 03/04/09 COLONOSCOPY FLX DX W/COLLJ SPEC WHEN PFRMD 09/19/2019 Colonoscopy ESOPHAGOGASTRODUODENOSCOPY TRANSORAL DIAGNOSTIC 02/11/2010 EGD EXC BREAST LES PREOP PLMT RAD MARKER OPEN 1 LES 07-30-13 RIGHT LIG/TRNSXJ FLP TUBE ABDL/VAG APPR UNI/BI Tubal ligation TONSILLECTOMY PRIMARY/SECONDARY <AGE 12 Tonsillectomy TOTAL ABDOMINAL HYSTERECT W/WO RMVL TUBE OVARY 2002 GREGORIO and BSO Atypical hyperplasia ALLERGIES Penicillins MEDICATIONS azithromycin (ZITHROMAX Z-SURINDER) 250 mg tablet Take 2 tablets day one, then, 1 tablet daily until gone. atenolol (TENORMIN) 25 mg tablet Take 1 tablet by mouth once daily. hyoscyamine (LEVSIN) 0.125 mg tablet Take one tablet 30 minutes before meals, when needed. cyclobenzaprine (FLEXERIL) 10 mg tablet Take 1 tablet by mouth three times daily as needed for muscle spasm. naproxen (NAPROSYN) 500 mg tablet Take 1 tablet by mouth twice daily as needed (for pain/inflammation). Take with food. meclizine (ANTIVERT) 12.5 mg tab TAKE ONE TABLET BY MOUTH THREE TIMES DAILY NEEDED FOR DIZZINESS pramipexole (MIRAPEX) 0.25 mg tablet 1-2 tablets three times/day as needed for restless legs apixaban (ELIQUIS ORAL) Take by mouth. Per office visit note 02/14/2019 apremilast (OTEZLA) 30 mg tablet Take 30 mg by mouth once daily. Acidophilus-Pectin, [place] 25 million cell -100 mg tab Take 1 tablet by mouth once daily. benzonatate (TESSALON PERLES) 100 mg capsule Take 2 capsules by mouth three times daily as needed. (Patient not taking: Reported on 11/10/2021) FAMILY HISTORY Problem Relation Age of Onset Hypertension Mother Heart Failure Mother other (Other) Father aplastic anemia pancytopenia other (leukemia) Father 10/2010 Hypertension Sister Diabetes Brother Diabetes Brother None Brother Heart Maternal Grandmother Diabetes Maternal Grandmother Heart Paternal Grandmother Colon Cancer Paternal Uncle Social History Tobacco Use Smoking status: Never Smokeless tobacco: Never Vaping Use Vaping Use: Never used Substance Use Topics Alcohol use: No Drug use: No ASSESSMENT/PLAN: 1. Acute cough - ICD9: 786.2, ICD10: R05.1 - XR CHEST 2V FRONTAL/LAT At this time reordered the x-ray to get the stat read for urgent care. Patient does not want any steroids, inhalers, or cough medication. RESULT: Lines, tubes, and devices: None. Lungs and pleura: No consolidation. No lung mass. No pleural effusion. No pneumothorax. Cardiomediastinal silhouette: Normal cardiomediastinal silhouette. Bones and soft tissues: There are degenerative changes in the spine. IMPRESSION IMPRESSION: No acute radiographic abnormality. Judicial Clerk: BARBARA Transcribe Date/Time: Nov 12 2021 4:39P Dictated by : PREETI ELIZABETH MD At this time instructed to continue her zpak. Potential red flag symptoms discussed with the patient. Reviewed appropriate action plan to take if red flag symptoms occur. Patient agreeable to treatment plan. Leia Tatum APRN.DONNIE documented in this encounter [facility] 11-10-2021 Instructions Ton Ni APRN.CNP - 11/10/2021 6:03 PM EDT 1.) Start Zpack, take as directed. 2.) Recommend using OTC cold and cough medication as needed for symptom management. Mucinex works well for chest congestion. Stay well hydrated. May use Tylenol or Ibuprofen for fever. 3.) If symptoms do not improve recommend completing chest xray or consider repeat Covid/Flu Testing. 4.) Follow up as needed. documented in this encounter [facility] 11-10-2021 History of Presen t illness Narrative This is a 66 year old female who presents today with: Patient presents with: Acute Visit: cough, chest congestion, runny nose, fatique, temp HISTORY OF PRESENT ILLNESS: Pily Emery is a 66 year old female. Patient presents with: Acute Visit: cough, chest congestion, runny nose, fatique, temp Here in the office for muscle aches, cough, chest congestion, and runny nose. Symptoms started about 1 week. Productive cough, thick white mucus. Feels like she is runny at temp at home but has not checked. No SOB. Not tried any [id number] medications at this time. Took rapid covid test today at work and was negative. PAST MEDICAL HISTORY: PAST MEDICAL HISTORY Diagnosis Date Abdominal pain, right lower quadrant 2008 intermittant Alopecia Anxiety state, unspecified Arrhythmia Breast cancer (HCC) Diverticulosis of colon (without mention of hemorrhage) Fatty liver disease, non-alcoholic 02/02/2010 Hyperlipidemia LDL goal < 130 02/03/2011 Internal hemorrhoids without mention of complication Obesity 04/06/2012 Osteopenia, senile 02/26/2021 Repeat in 2-4 years from 02/2021 Psoriasis 2009 Psoriatic arthritis (HCC) 03/08/2010 Restless legs syndrome 10/21/2014 Stricture and stenosis of esophagus Unilateral primary osteoarthritis, left knee 2018 PAST SURGICAL HISTORY Procedure Laterality Date ARTHRP KNE CONDYLE&PLATU MEDIAL&LAT COMPARTMENTS Right 2017 BREAST LUMPECTOMY HX 06/2013 BX BREAST W/DEVICE 1ST LESION STEREOTACTIC GUID 07-11-13 DELIVERY ONLY , low cervical X3 COLONOSCOPY FLX DX W/COLLJ SPEC WHEN PFRMD 03/04/09 COLONOSCOPY FLX DX W/COLLJ SPEC WHEN PFRMD 09/19/2019 Colonoscopy ESOPHAGOGASTRODUODENOSCOPY TRANSORAL DIAGNOSTIC 02/11/2010 EGD EXC BREAST LES PREOP PLMT RAD MARKER OPEN 1 LES 5-614 RIGHT LIG/TRNSXJ FLP TUBE ABDL/VAG APPR UNI/BI Tubal ligation TONSILLECTOMY PRIMARY/SECONDARY <AGE 12 Tonsillectomy TOTAL ABDOMINAL HYSTERECT W/WO RMVL TUBE OVARY 2002 GREGORIO and BSO Atypical hyperplasia ALLERGIES Penicillins MEDICATIONS Current Outpatient Medications Medication Sig atenolol (TENORMIN) 25 mg tablet Take 1 tablet by mouth once daily. benzonatate (TESSALON PERLES) 100 mg capsule Take 2 capsules by mouth three times daily as needed. hyoscyamine (LEVSIN) 0.125 mg tablet Take one tablet 30 minutes before meals, when needed. cyclobenzaprine (FLEXERIL) 10 mg tablet Take 1 tablet by mouth three times daily as needed for muscle spasm. naproxen (NAPROSYN) 500 mg tablet Take 1 tablet by mouth twice daily as needed (for pain/inflammation). Take with food. meclizine (ANTIVERT) 12.5 mg tab TAKE ONE TABLET BY MOUTH THREE TIMES DAILY NEEDED FOR DIZZINESS pramipexole (MIRAPEX) 0.25 mg tablet 1-2 tablets three times/day as needed for restless legs apixaban (ELIQUIS ORAL) Take by mouth. Per office visit note 02/14/2019 apremilast (OTEZLA) 30 mg tablet Take 30 mg by mouth once daily. Acidophilus-Pectin, [place] (ACIDOPHILUS EXTRA STRENGTH) 25 million-100 cell-mg tab Take 1 tablet by mouth once daily. No current facility-administered medications for this visit. FAMILY HISTORY Problem Relation Age of Onset Hypertension Mother Heart Failure Mother other (Other) Father aplastic anemia pancytopenia other (leukemia) Father 10/2010 Hypertension Sister Diabetes Brother Diabetes Brother None Brother Heart Maternal Grandmother Diabetes Maternal Grandmother Heart Paternal Grandmother Colon Cancer Paternal Uncle Social History Tobacco Use Smoking status: Never Smokeless tobacco: Never Vaping Use Vaping Use: Never used Substance Use Topics Alcohol use: No Drug use: No REVIEW OF SYSTEMS GENERAL: + Fatigue HEENT: + Runny Nose NECK: Negative for lumps, goiter, pain and significant neck swelling RESPIRATORY: + Cough/chest congestion CARDIOVASCULAR: Negative for chest pain, leg swelling, orthopnea, or palpitations GI: No nausea, vomiting, or diarrhea/constipation. No hematochezia/melena. No heartburn or reflux symptoms. : No history of dysuria, frequency or incontinence MUSCULOSKELETAL: Negative for joint pain or swelling. SKIN: Negative for lesions, rash, and itching ENDOCRINE: Negative for cold or heat intolerance, polyuria, polydipsia and goiter NEURO: No history of headaches, syncope, paralysis, seizures or tremors MOOD: Negative for depression, anxiety, or suicidal ideation. EXAM: BP 122/80 Pulse 84 Resp 20 Wt 101.2 kg (223 lb) SpO2 98% BMI 36.83 kg/m PHYSICAL EXAM: General Appearance: Well appearing, alert, in no acute distress, well-hydrated, well nourished. Skin: Skin color, texture, turgor normal, no suspicious rashes or lesions. Head: Normocephalic, no masses, lesions, tenderness or abnormalities. Eyes: Anicteric sclera. Extraocular movements are intact. Ears: External ears normal, canals clear. TM's pearly garcia Nose/Sinuses: Nares normal, septum midline, mucosa normal, no drainage or sinus tenderness. Oropharynx: Lips, mucosa, and tongue normal, teeth and gums normal, oropharynx normal. Neck: Supple, no adenopathy; thyroid symmetric, normal size, no bruits. Lungs: Lungs clear to auscultation. No wheezing, rhonchi, rales. Heart: RRR without murmur, gallop, or rubs. No ectopy. Extremities: No deformities, edema, skin discoloration, clubbing or cyanosis. Good capillary refill. Peripheral Pulses: Normal, Capillary refill <2secs, strong peripheral pulses, Pulses palpable. Neurologic: Gait normal. Sensation grossly intact. ASSESSMENT/PLAN: 1. URI, acute - ICD9: 465.9, ICD10: J06.9 - Due to length of symptoms will give a Zpack. - Denied wanting Covid/Flu test. - Symptomatic treatment with prn analgesia - Supportive care with fluids and rest - The patient may also use OTC cough and cold meds as needed. - If symptoms do not improve may get chest xray. - AZITHROMYCIN 250 MG TABLET - XR CHEST 2V FRONTAL/LAT Follow-up as needed or sooner if symptoms get worse or do not improve. Discussed treatment plan and patient voices understanding. Patient's questions answered appropriately. Medications and potential side effects were discussed and patient voices understanding. Ton Ni APRN.DONNIE This note was partially generated using [employer] recognition system. Note was reviewed for accuracy. There may be minor misspellings or grammar miscues with [employer] voice recognition. documented in this encounter [facility] 07-15-2021 History and physical note [facility] Abdominal [facility] - HISTORY AND PHYSICAL Chief Complaint: dysphagia HPI: Pily Emery is a 66 year old female who presents with dysphagia. She states that food gets stuck in the upper esophagus, mainly hard food. No difficulty with liquids. No heartburn, regurgitation, or feeling that food gets stuck in the upper abdomen. She had an EGD which she states shows a Schatzkis ring and a small hiatal hernia. She had an UGI with barium tablet which got stuck at the lower esophagus for what she reports for 30 minutes. She has a stong family history of dysphagia as well. Relevant previous operations include: 1. Open hysterectomy 2. Knee replacement 3. C sections 4. Tonsillectomy No history of Psychiatric Disorders or Opioid Use Independent No employment None No Significant Comorbidities N/A PAST MEDICAL HISTORY Diagnosis Date Abdominal pain, right lower quadrant 2008 intermittant Alopecia Anxiety state, unspecified Arrhythmia Breast cancer (HCC) Diverticulosis of colon (without mention of hemorrhage) Fatty liver disease, non-alcoholic 02/02/2010 Hyperlipidemia LDL goal < 130 02/03/2011 Internal hemorrhoids without mention of complication Obesity 04/06/2012 Osteopenia, senile 02/26/2021 Repeat in 2-4 years from 02/2021 Psoriasis 2009 Psoriatic arthritis (HCC) 03/08/2010 Restless legs syndrome 10/21/2014 Stricture and stenosis of esophagus Unilateral primary osteoarthritis, left knee 2018 PAST SURGICAL HISTORY Procedure Laterality Date ARTHRP KNE CONDYLE&PLATU MEDIAL&LAT COMPARTMENTS Right 2017 BREAST LUMPECTOMY HX 06/2013 BX BREAST W/DEVICE 1ST LESION STEREOTACTIC GUID 07-11-13 DELIVERY ONLY , low cervical X3 COLONOSCOPY FLX DX W/COLLJ SPEC WHEN PFRMD 03/04/09 COLONOSCOPY FLX DX W/COLLJ SPEC WHEN PFRMD 09/19/2019 Colonoscopy ESOPHAGOGASTRODUODENOSCOPY TRANSORAL DIAGNOSTIC 02/11/2010 EGD EXC BREAST LES PREOP PLMT RAD MARKER OPEN 1 LES -14 RIGHT LIG/TRNSXJ FLP TUBE ABDL/VAG APPR UNI/BI Tubal ligation TONSILLECTOMY PRIMARY/SECONDARY <AGE 10 Tonsillectomy TOTAL ABDOMINAL HYSTERECT W/WO RMVL TUBE OVARY 2002 GREGORIO and BSO Atypical hyperplasia Social History Tobacco Use Smoking status: Never Smoker Smokeless tobacco: Never Used Vaping Use Vaping Use: Never used Substance Use Topics Alcohol use: No Drug use: No Additional social history not relevant to the patient's HPI FAMILY HISTORY Problem Relation Age of Onset Hypertension Mother Heart Failure Mother other (Other) Father aplastic anemia pancytopenia other (leukemia) Father 10/2010 Hypertension Sister Diabetes Brother Diabetes Brother None Brother Heart Maternal Grandmother Diabetes Maternal Grandmother Heart Paternal Grandmother Colon Cancer Paternal Uncle Additional family history not relevant to the patient's HPI ALLERGIES Allergen Reactions Penicillins YEAST INFECTION Current Outpatient Medications Medication Sig Dispense Refill atenolol (TENORMIN) 25 mg tablet Take 1 tablet by mouth once daily. 30 tablet 11 benzonatate (TESSALON PERLES) 100 mg capsule Take 2 capsules by mouth three times daily as needed. 30 capsule 1 hyoscyamine (LEVSIN) 0.125 mg tablet Take one tablet 30 minutes before meals, when needed. 30 tablet 1 cyclobenzaprine (FLEXERIL) 10 mg tablet Take 1 tablet by mouth three times daily as needed for muscle spasm. 30 tablet 3 naproxen (NAPROSYN) 500 mg tablet Take 1 tablet by mouth twice daily as needed (for pain/inflammation). Take with food. 60 tablet 11 meclizine (ANTIVERT) 12.5 mg tab TAKE ONE TABLET BY MOUTH THREE TIMES DAILY NEEDED FOR DIZZINESS 24 tablet 0 pramipexole (MIRAPEX) 0.25 mg tablet 1-2 tablets three times/day as needed for restless legs 100 tablet 6 apixaban (ELIQUIS ORAL) Take by mouth. Per office visit note 02/14/2019 apremilast (OTEZLA) 30 mg tablet Take 30 mg by mouth once daily. Acidophilus-Pectin, [place] (ACIDOPHILUS EXTRA STRENGTH) 25 million-100 cell-mg tab Take 1 tablet by mouth once daily. No current facility-administered medications for this visit. REVIEW OF SYSTEMS The remainder of the 12 review of systems is negative other than what was mentioned in the HPI and above. BP 127/58 Pulse (!) 57 Temp 36.6 C (97.8 F) (Tympanic) Ht 165.7 cm (5' 5.25 ) Wt 102.1 kg (225 lb 1.6 oz) BMI 37.17 kg/m Physical findings of this patient are as follows (COMPLETE 10 INCLUDING HEART AND LUNG EXAM OR CHOOSE NORMAL EXAM IF APPROPRIATE): Physical Exam Physical Exam Constitutional: The patient is well-developed, well-nourished, and in no distress. Head: Normocephalic and atraumatic. Eyes: Pupils are equal, round, and reactive to light. EOM are normal. Neck: Normal range of motion. Neck supple. Cardiovascular: Regular rhythm and normal heart sounds. Pulmonary/Chest: Effort normal and breath sounds normal. Abdominal: Soft. Bowel sounds are normal. Musculoskeletal: Normal range of motion. Neurological: He is alert. GCS score is 15. Skin: Skin is warm and dry. Psychiatric: Affect and judgment normal. Relevant Hernia Findings - None LABS: No results found for: HBA1C IMAGING - Reviewed with staff CT - none US - none Assessment: Pily Emery is a 66 year old female who presents with dysphagia (globus). Plan: Unclear if she actually has a hiatal hernia or not on EGD. Need to get images from [facility]. Regardless, she needs manometry and further work up from our swallowing center. Follow up if there is a surgical cause of her dysphagia. Consultation requested by Dr. Alessio Gomez for an opinion regarding hiatal hernia. My final recommendations will be communicated back to the requesting physician by way of shared Medical record or letter to requesting physician via US mail. documented in this encounter [facility] 07-15-2021 Nurse Note What is the reason for your visit today? Consult Who is your referring physician? Dr. Morrison Are you having poor oral intake? NO Have you had unintentional weight loss of 15 lbs/7 Kg in the last 3-6 months? NO Bowels: regular Wound: clean & dry Temperature: No Drains: No documented in this encounter [facility] documented as of this encounter (statuses as of 07/15/2021) [facility] History of Past illness Narrative* Problem Noted Date Resolved Date Acute gastritis without mention of hemorrhage 11/15/2016 documented as of this encounter (statuses as of 11/10/2021) [address] History of Past illness Narrative* Problem Noted Date Resolved Date Acute gastritis without mention of hemorrhage 11/15/2016 documented as of this encounter (statuses as of 11/12/2021) [address] History of Past illness Narrative* Problem Noted Date Resolved Date Acute gastritis without mention of hemorrhage 11/15/2016 documented as of this encounter (statuses as of 11/22/2021) [address] History of Past illness Narrative* Problem Noted Date Resolved Date Acute gastritis without mention of hemorrhage 11/15/2016 documented as of this encounter (statuses as of 12/09/2021) [address] History of Past illness Narrative* Problem Noted Date Resolved Date Acute gastritis without mention of hemorrhage 11/15/2016 documented as of this encounter (statuses as of 12/15/2021) [address] History of Past illness Narrative* Problem Noted Date Resolved Date Acute gastritis without mention of hemorrhage 11/15/2016 documented as of this encounter (statuses as of 12/28/2021) [address] History of Past illness Narrative* Problem Noted Date Resolved Date Acute gastritis without mention of hemorrhage 11/15/2016 documented as of this encounter (statuses as of 01/12/2022) [address] History of Past illness Narrative* Problem Noted Date Resolved Date Acute gastritis without mention of hemorrhage 11/15/2016 documented as of this encounter (statuses as of 01/12/2022) [address] History of Past illness Narrative* Problem Noted Date Resolved Date Acute gastritis without mention of hemorrhage 11/15/2016 documented as of this encounter (statuses as of 01/14/2022) [address] History of Past illness Narrative* Problem Noted Date Resolved Date Acute gastritis without mention of hemorrhage 11/15/2016 documented as of this encounter (statuses as of 03/08/2022) [address] History of Past illness Narrative* Problem Noted Date Resolved Date Acute gastritis without mention of hemorrhage 11/15/2016 documented as of this encounter (statuses as of 03/27/2022) [address] History of Past illness Narrative* Problem Noted Date Resolved Date Acute gastritis without mention of hemorrhage 11/15/2016 documented as of this encounter (statuses as of 03/30/2022) [address] History of Past illness Narrative* Problem Noted Date Resolved Date Acute gastritis without mention of hemorrhage 11/15/2016 documented as of this encounter (statuses as of 04/01/2022) [address] History of Past illness Narrative* Problem Noted Date Resolved Date Acute gastritis without mention of hemorrhage 11/15/2016 documented as of this encounter (statuses as of 04/22/2022) [address] History of Past illness Narrative* Problem Noted Date Resolved Date Acute gastritis without mention of hemorrhage 11/15/2016 documented as of this encounter (statuses as of 06/10/2022) [address] History of Past illness Narrative* Problem Noted Date Resolved Date Acute gastritis without mention of hemorrhage 11/15/2016 documented as of this encounter (statuses as of 07/18/2022) [address] History of Past illness Narrative* Problem Noted Date Diagnosed Date Resolved Date Acute gastritis without mention of hemorrhage 02/12/20 10 11/15/2016 documented as of this encounter (statuses as of 12/01/2022) [address] History of Past illness Narrative* Problem Noted Date Diagnosed Date Resolved Date Acute gastritis without mention of hemorrhage 02/12/20 10 11/15/2016 documented as of this encounter (statuses as of 12/10/2022) [address] History of Past illness Narrative* Problem Noted Date Diagnosed Date Resolved Date Acute gastritis without mention of hemorrhage 02/12/20 10 11/15/2016 documented as of this encounter (statuses as of 12/31/2022) [address] History of Past illness Narrative* Problem Noted Date Diagnosed Date Resolved Date Acute gastritis without mention of hemorrhage 02/12/20 10 11/15/2016 documented as of this encounter (statuses as of 01/29/2023) [facility] History of Past illness Narrative* Problem Noted Date Diagnosed Date Resolved Date Acute gastritis without mention of hemorrhage 02/12/2011/15/2016 documented as of this encounter (statuses as of 02/28/2023) [place] [address]18-2010 History of Past illness Narrative* Problem Noted Date Diagnosed Date Resolved Date Acute gastritis without mention of hemorrhage 02/12/20 10 11/15/2016 documented as of this encounter (statuses as of 05/10/2023) [facility] note* Diagnosis Oropharyngeal dysphagia- Primary Dysphagia, oropharyngeal phase [facility] Diagnosis URI, acute- Primary Acute upper respiratory infections of unspecified site [facility]* Diagnosis Acute cough- Primary [facility] Diagnosis Acute bronchitis, unspecified organism- Primary Acute cough [facility] Diagnosis Fall, initial encounter- Primary Acute pain of right knee Contusion of right breast, initial encounter [facility] Diagnosis Encounter for screening mammogram for malignant neoplasm of breast- Primary Other screening mammogram [facility]* Diagnosis Encounter for screening mammogram for malignant neoplasm of breast Other screening mammogram [facility] Diagnosis Abnormal mammogram- Primary Abnormal mammogram, unspecified [facility]* Diagnosis 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 [facility]* Diagnosis Ductal carcinoma in situ (DCIS) of breast, unspecified laterality- Primary [facility] Diagnosis Numbness and tingling of foot- Primary Disturbance of skin sensation Discoloration of skin of finger Dyschromia, unspecified Mastitis Inflammatory disease of breast Antibiotic-induced yeast infection Candidiasis of unspecified site [facility] Diagnosis Dysphagia, unspecified type- Primary Esophageal stricture Stricture and stenosis of esophagus Constipation, unspecified constipation type [facility] Diagnosis Wellness examination- Primary Psoriatic arthritis (HCC) Psoriatic arthropathy Atrial fibrillation, new onset (HCC) Atrial fibrillation Situational anxiety Other anxiety states Insomnia secondary to situational depression Adjustment disorder with depressed mood Restless legs syndrome Restless legs syndrome (RLS) Encounter for screening mammogram for breast cancer Women's annual routine gynecological examination [facility]* Diagnosis Pain, dental- Primary Unspecified disorder of the teeth and supporting structures documented in this encounter [facility] note* Diagnosis Abnormal mammogram Abnormal mammogram, unspecified [facility]* Diagnosis Encounter for screening mammogram for breast cancer documented in this encounter [facility] note* Diagnosis Situational anxiety Other anxiety states Insomnia secondary to situational depression Adjustment disorder with depressed mood documented in this encounter [facility] note* Diagnosis Viral URI- Primary Acute upper respiratory infections of unspecified site Acute cough Loss of voice Aphonia documented in this encounter [facility] for referral (narrative)* Diagnostic Procedure Only (Routine) - Closed Specialty Diagnoses / Procedures Referred By Contac t Referred To Contact XR IMAGING Diagnoses Fall, initial encounter Acute pain of right knee Procedures XR KNEE GENERAL 4V AP BOTH/PA BOTH/LAT/MERC RIGHT RADIOLOGIC EXAM KNEE COMPLETE 4/MORE VIEWS Ton Ni, VENKAT [address] [place] [address] Xr Imaging Referral ID Status Reason Start Date Expiration Date V isits Requested Visits Authorized [id number] Closed Auto-Generate d Referral 12/09/2021 01/08/2023 1 1 [facility] for referral (narrative)* Diagnostic Procedure Only (Routine) - Authorized Specialty Diagnoses / Procedures Referred By Contac t Referred To Contact BR IMAGING Diagnoses Encounter for screening mammogram for malignant neoplasm of breast Procedures OMAR SCREENING SCREENING MAMMOGRAPHY BI 2-VIEW BREAST INC Alessio Sue MD [address] [place] [address] [facility] [address] [place] [address] Referral ID Status Reason Start Date Expiration Date Visits Requested Visits Authorized [id number] Authorized Auto-Generat ed Referral 12/28/2021 01/27/2023 1 1 [facility] for referral (narrative)* Diagnostic Procedure Only (Routine) - Closed Specialty Diagnoses / Procedures Referred By Loreta roy Referred To Contact BR IMAGING Diagnoses Encounter for screening mammogram for malignant neoplasm of breast Procedures OMAR SCREENING SCREENING MAMMOGRAPHY BI 2-VIEW BREAST INC CAD Alessio Gomez MD [address] [place] [address] [facility] [address] [place] [address] Referral ID Status Reason Start Date Expiration Date V isits Requested Visits Authorized [id number] Closed Auto-Generate d Referral 12/28/2021 01/27/2023 1 1 [facility] for referral (narrative)* Diagnostic Procedure Only (Routine) - Authorized Specialty Diagnoses / Procedures Referred By Loreta roy Referred To Contact BR IMAGING Diagnoses Abnormal mammogram Procedures US BREAST LTD LT US BREAST UNI REAL TIME WITH IMAGE LIMITED Alessio Gomez MD [address] [place] [address] [facility] [address] [place] [address] Referral ID Status Reason Start Date Expiration Date Visits Requested Visits Authorized [id number] Authorized Auto-Generat ed Referral 2 02/11/2023 1 1 * Diagnostic Procedure Only (Routine) - Authorized Specialty Diagnoses / Procedures Referred By Loreta roy Referred To Contact BR IMAGING Diagnoses Abnormal mammogram Procedures US BREAST LTD RT US BREAST UNI REAL TIME WITH IMAGE LIMITED Alessio Gomez MD [address] [place] [address] [facility] [address] [place] [address] Referral ID Status Reason Start Date Expiration Date Visits Requested Visits Authorized [id number] Authorized Auto-Generat ed Referral 2 02/11/2023 1 1 * Diagnostic Procedure Only (Routine) - Authorized Specialty Diagnoses / Procedures Referred By Contac t Referred To Contact BR IMAGING Diagnoses Abnormal mammogram Procedures OMAR DIAGNOSTIC BILAT DIAGNOSTIC MAMMOGRAPHY COMPUTER-AIDED DETCJ BI Alessio Gomez MD [address] [place] [address] [facility] [address] [place] [address] Referral ID Status Reason Start Date Expiration Date Visits Requested Visits Authorized [id number] Authorized Auto-Generat ed Referral 02/11/2023 1 1 [facility] for referral (narrative)* Diagnostic Procedure Only (Routine) - Closed Specialty Diagnoses / Procedures Referred By Contac t Referred To Contact XR IMAGING Diagnoses Numbness and tingling of foot Procedures XR LUMBAR GENERAL 3V AP/LAT/L5-S1 RADEX SPINE LUMBOSACRAL 2/3 VIEWS Freeman Coyle, OVEN LOADER.WILDLIFE ECOLOGY PROFESSOR [address] [place] [address] Xr Imaging Referral ID Status Reason Start Date Expiration Date V isits Requested Visits Authorized [id number] Closed Auto-Generate d Referral 04/22/2022 05/22/2023 1 1 [facility] for referral (narrative)* Outpatient Procedure (Routine) - Authorized Specialty Diagnoses / Procedures [id number] Diagnoses Dysphagia, unspecified type Procedures EGD DIAGNOSTIC ESOPHAGOGASTRODUODENOSC OPY TRANSORAL [place] Benjamín [place] [address] [place] [address] [facility] [address] [place] [address] Referral ID Status Reason Start Date Expiration Date Visits Requested Visits Authorized [id number] Authorized Auto-Generat ed Referral 05/30/2022 05/31/2023 1 1 [facility] for referral (narrative)* Diagnostic Procedure Only (Routine) - Closed Specialty Diagnoses / Procedures Referred By Loreta t Referred To Contact BR IMAGING Diagnoses Encounter for screening mammogram for breast cancer Procedures OMAR SCREENING SCREENING MAMMOGRAPHY BI 2-VIEW BREAST INC Ton Banda APRN.CNP [address] [place] [address] [facility] [address] [place] [address] Referral ID Status Reason Start Date Expiration Date V isits Requested Visits Authorized [id number] Closed Auto-Generate d Referral 11/30/2022 12/30/2023 1 1 [facility] for visit Narrative* Diagnostic Procedure Only (Routine) - Closed Specialty Diagnoses / Procedures Referred By Loreta t Referred To Contact BR IMAGING Diagnoses Encounter for screening mammogram for malignant neoplasm of breast Procedures OMAR SCREENING SCREENING MAMMOGRAPHY BI 2-VIEW BREAST INC CAD Alessio Gomez MD [address] [place] [address] [facility] [address] [place] [address] Referral ID Status Reason Start Date Expiration Date V isits Requested Visits Authorized [id number] Closed Auto-Generate d Referral 12/28/2021 01/27/2023 1 1 [facility] for visit Narrative* Diagnostic Procedure Only (Routine) - Closed Specialty Diagnoses / Procedures Referred By Loreta t Referred To Contact BR IMAGING Diagnoses Abnormal mammogram Procedures OMAR DIAGNOSTIC BILAT DIAGNOSTIC MAMMOGRAPHY COMPUTER-AIDED DETCJ Alessio Carrera MD [address] [place] [address] [facility] [address] [place] [address] Referral ID Status Reason Start Date Expiration Date V isits Requested Visits Authorized [id number] Closed Auto-Generate d Referral 01/12/2022 02/11/2023 1 1 [facility] for visit Narrative* Diagnostic Procedure Only (Routine) - Closed Specialty Diagnoses / Procedures Referred By Contac t Referred To Contact BR IMAGING Diagnoses Encounter for screening mammogram for breast cancer Procedures OMAR SCREENING SCREENING MAMMOGRAPHY BI 2-VIEW BREAST INC Ton Banda APRN.WILDLIFE ECOLOGY PROFESSOR [address] [place] [address] [facility] [address] [place] [address] Referral ID Status Reason Start Date Expiration Date V isits Requested Visits Authorized [id number] Closed Auto-Generate d Referral 11/30/2022 12/30/2023 1 1 [facility] Instructions Instruction Description Start Date Patient advised to follow-up with Primary Care Physician for BMI management. 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 Review of System There may be information available, but it has not been provided by the sender. Family History There may be information available, but it has not been provided by the sender.No Family History Records FoundNo Family History Records FoundNo Family History Records Found Summary Purpose Reason for Referral Specialty Diagnoses / Procedures Referred By Contac t Referred To Contact Diagnoses Oropharyngeal dysphagia Procedures CONSULT TO [facility] OFFICE/OUTPATIENT [facility] 60-74 MINUTES Corey Morrison MD [address] [place] [address] Referral ID Status Reason Start Date Expiration Date Visits Requested Visits Authorized [id number] Authorized PCP Requested Referral 07/15/2021 07/15/2022 1 1 Specialty Diagnoses / Procedures Referred By Contac t Referred To Contact Diagnoses Ductal carcinoma in situ (DCIS) of right breast Procedures BREAST PROSTHESIS, MASTECTOMY Alessio Gutiérrez MD [address] [place] [address] Referral ID Status Reason Start Date Expiration Date V isits Requested Visits Authorized [id number] Closed PCP Requested Referral 03/07/2022 06/05/2022 1 1 Specialty Diagnoses / Procedures Referred By Contac t Referred To Contact Diagnoses Ductal carcinoma in situ (DCIS) of breast, unspecified laterality Procedures BREAST PROSTHESIS, MASTECTOMY BRA Alessio Gomez MD [address] [place] [address] Referral ID Status Reason Start Date Expiration Date V isits Requested Visits Authorized [id number] Closed PCP Requested Referral 03/30/2022 06/28/2022 1 1 Specialty Diagnoses / Procedures Referred By Contac t Referred To Contact Diagnoses Ductal carcinoma in situ (DCIS) of breast, unspecified laterality Procedures BREAST PROSTHESIS, SILICONE Alessio Gomez MD [address] [place] [id number] Referral ID Status Reason Start Date Expiration Date V isits Requested Visits Authorized [id number] Closed PCP Requested Referral 03/30/2022 06/28/2022 1 1 Specialty Diagnoses / Procedures Referred By Contac t Referred To Contact Gynecology Diagnoses Women's annual routine gynecological examination Procedures CONSULT TO GYNECOLOGY OFFICE/OUTPATIENT [facility] MDM 60-74 MINUTES Ton Ni, OVEN LOADER.WILDLIFE ECOLOGY PROFESSOR [address] [place] [address] Referral ID Status Reason Start Date Expiration Date Visits Requested Visits Authorized [id number] Authorized PCP Requested Referral Auto-Generate d Referral 11/30/2022 11/30/2023 1 1 Specialty Diagnoses / Procedures Referred By Contac t Referred To Contact BR IMAGING Diagnoses Encounter for screening mammogram for breast cancer Procedures OMAR SCREENING SCREENING MAMMOGRAPHY BI 2-VIEW BREAST INC CAD Ton Ni, SUZANNA.WILDLIFE ECOLOGY PROFESSOR [address] [place] [address] [facility] [address] [place] [address] Referral ID Status Reason Start Date Expiration Date Visits Requested Visits Authorized [id number] Pending Review Auto-Generat ed Referral 11/30/2022 12/30/2023 1 1 Health Concerns Infection Onset Date Last Indicated Resolved Time COVID-19 Confirmed 11/22/2021 11/22/2021 Infection Onset Date Last Indicated Resolved Time COVID-19 Confirmed 11/22/2021 11/22/2021 8:51 PM EDT Additional Source Comments INFORMATION SOURCE (unrecogn ized section and content) DATE CREATED AUTHOR AUTHOR'S ORGANPARTH ATION 09/20/2017 [facility] DATE CREATED AUTHOR AUTHOR'S ORGANPARTH ATION 01/04/2023 [facility] Source Comments (unrecognize d section and content) In the event this informatio n is protected by the Federal Confidentiality of Alcohol and Drug Abuse Patient Records regulations: The Federal rules restrict any use of the information to criminally investigate or prosecute any alcohol or drug abuse patient.[facility] event this information is protected by the Federal Confidentiality of Alcohol and Drug Abuse Patient Records regulations: The Federal rules restrict any use of the information to criminally investigate or prosecute any alcohol or drug abuse patient.[facility] the event this information is protected by the Federal Confidentiality of Alcohol and Drug Abuse Patient Records regulations: The Federal rules restrict any use of the information to criminally investigate or prosecute any alcohol or drug abuse patient.[facility] the event this information is protected by the Federal Confidentiality of Alcohol and Drug Abuse Patient Records regulations: The Federal rules restrict any use of the information to criminally investigate or prosecute any alcohol or drug abuse patient.[facility] the event this information is protected by the Federal Confidentiality of Alcohol and Drug Abuse Patient Records regulations: The Federal rules restrict any use of the information to criminally investigate or prosecute any alcohol or drug abuse patient.[facility] the event this information is protected by the Federal Confidentiality of Alcohol and Drug Abuse Patient Records regulations: The Federal rules restrict any use of the information to criminally investigate or prosecute any alcohol or drug abuse patient.[facility] Center[facility] the event this information is protected by the Federal Confidentiality of Alcohol and Drug Abuse Patient Records regulations: The Federal rules restrict any use of the information to criminally investigate or prosecute any alcohol or drug abuse patient.[facility] CenterIn the event this information is protected by the Federal Confidentiality of Alcohol and Drug Abuse Patient Records regulations: The Federal rules restrict any use of the information to criminally investigate or prosecute any alcohol or drug abuse patient.[facility] CenterIn the event this information is protected by the Federal Confidentiality of Alcohol and Drug Abuse Patient Records regulations: The Federal rules restrict any use of the information to criminally investigate or prosecute any alcohol or drug abuse patient.[facility] CenterIn the event this information is protected by the Federal Confidentiality of Alcohol and Drug Abuse Patient Records regulations: The Federal rules restrict any use of the information to criminally investigate or prosecute any alcohol or drug abuse patient.[facility] CenterIn the event this information is protected by the Federal Confidentiality of Alcohol and Drug Abuse Patient Records regulations: The Federal rules restrict any use of the information to criminally investigate or prosecute any alcohol or drug abuse patient.[facility] CenterIn the event this information is protected by the Federal Confidentiality of Alcohol and Drug Abuse Patient Records regulations: The Federal rules restrict any use of the information to criminally investigate or prosecute any alcohol or drug abuse patient.[facility] CenterIn the event this information is protected by the Federal Confidentiality of Alcohol and Drug Abuse Patient Records regulations: The Federal rules restrict any use of the information to criminally investigate or prosecute any alcohol or drug abuse patient.[facility] CenterIn the event this information is protected by the Federal Confidentiality of Alcohol and Drug Abuse Patient Records regulations: The Federal rules restrict any use of the information to criminally investigate or prosecute any alcohol or drug abuse patient.[facility] CenterIn the event this information is protected by the Federal Confidentiality of Alcohol and Drug Abuse Patient Records regulations: The Federal rules restrict any use of the information to criminally investigate or prosecute any alcohol or drug abuse patient.[facility] CenterIn the event this information is protected by the Federal Confidentiality of Alcohol and Drug Abuse Patient Records regulations: The Federal rules restrict any use of the information to criminally investigate or prosecute any alcohol or drug abuse patient.[facility] CenterIn the event this information is protected by the Federal Confidentiality of Alcohol and Drug Abuse Patient Records regulations: The Federal rules restrict any use of the information to criminally investigate or prosecute any alcohol or drug abuse patient.[facility] CenterIn the event this information is protected by the Federal Confidentiality of Alcohol and Drug Abuse Patient Records regulations: The Federal rules restrict any use of the information to criminally investigate or prosecute any alcohol or drug abuse patient.[facility] CenterIn the event this information is protected by the Federal Confidentiality of Alcohol and Drug Abuse Patient Records regulations: The Federal rules restrict any use of the information to criminally investigate or prosecute any alcohol or drug abuse patient.[facility] CenterIn the event this information is protected by the Federal Confidentiality of Alcohol and Drug Abuse Patient Records regulations: The Federal rules restrict any use of the information to criminally investigate or prosecute any alcohol or drug abuse patient.[facility] CenterIn the event this information is protected by the Federal Confidentiality of Alcohol and Drug Abuse Patient Records regulations: The Federal rules restrict any use of the information to criminally investigate or prosecute any alcohol or drug abuse patient.[facility] CenterIn the event this information is protected by the Federal Confidentiality of Alcohol and Drug Abuse Patient Records regulations: The Federal rules restrict any use of the information to criminally investigate or prosecute any alcohol or drug abuse patient.[facility] CenterIn the event this information is protected by the Federal Confidentiality of Alcohol and Drug Abuse Patient Records regulations: The Federal rules restrict any use of the information to criminally investigate or prosecute any alcohol or drug abuse patient.[facility] CenterIn the event this information is protected by the Federal Confidentiality of Alcohol and Drug Abuse Patient Records regulations: The Federal rules restrict any use of the information to criminally investigate or prosecute any alcohol or drug abuse patient.[facility] Reason for Visit (unrecogniz ed section and content) Reason Comments Acute Visit cough, chest congest ion, runny nose, fatique, temp Reason Comments Cough Pt seen 11/10/2021 Z pack day 3, reported increased coughing, fever, chills, denied SOB, chest pain. Reason Comments Acute Visit cough, chest congetl ion Reason Comments Acute Visit Tripped over puppy Reason Comments Results Xray Reason Comments Order Request Reason Comments Results Reason Comments orders for [employer] Reason Comments Fall Reason Comments Forms Mastectomy products Reason Comments Acute Visit LEFT ring finger & B [place] toes tingling, numbness intermittent Reason Comments Dysphagia Specialty Diagnoses / Procedures Referred By Loreta roy Referred To Contact Diagnoses Oropharyngeal dysphagia Procedures CONSULT TO [facility] OFFICE/OUTPATIENT [facility] MDM 60-74 MINUTES Corey Morrison MD [address] [place] [address] Referral ID Status Reason Start Date Expiration Date V isits Requested Visits Authorized [id number] Closed PCP Requested Referral 07/15/2021 07/15/2022 1 1 Reason Onset Date Comments Refill Request 07/18/2022 Reason Comments Physical Reason Comments Pain, Sinus Had a dental procedu re done Monday Reason Comments Refill Request Reason Comments Acute Visit cold, cough, green m ucous Care Teams (unrecognized sec tion and content) Supervisor Advice Relationship Specialty Start Date End Date Alessio Gomez MD [address] [facility] [place] [address] PCP - General Family Practice 12/30/20 Supervisor Advice Relationship Specialty Start Date End Date Alessio Gomez MD [address] [facility] [place] [address] PCP - General Family Practice 12/30/20 Supervisor Advice Relationship Specialty Start Date End Date Alessio Gomez MD [address] [facility] [place] [address] PCP - General Family Practice 12/30/20 Supervisor Advice Relationship Specialty Start Date End Date Alessio Gomez MD [address] [place] [address] PCP - General Family Practice 12/30/20 Supervisor Advice Relationship Specialty Start Date End Date Alessio Gomez MD [facility] [place] [address] PCP - General Family Medicine 12/30/20 Supervisor Advice Relationship Specialty Start Date End Date Alessio Gomez MD [address] [place] [address] PCP - General Family Medicine 12/30/20 Supervisor Advice Relationship Specialty Start Date End Date Alessio Gomez MD [address] [place] [address] PCP - General Family Medicine 12/30/20 Supervisor Advice Relationship Specialty Start Date End Date Alessio Gomez MD [address] [facility] [place] [address] PCP - General Family Medicine 12/30/20 Supervisor Advice Relationship Specialty Start Date End Date Alessio Gomez MD [address] [facility] [place] [address] PCP - General Family Medicine 12/30/20 Supervisor Advice Relationship Specialty Start Date End Date Alessio Gomez MD [address] [facility] [place] [address] PCP - General Family Medicine 12/30/20 Supervisor Advice Relationship Specialty Start Date End Date Alessio Gmoez MD [address] [place] [address] PCP - General Family Medicine 12/30/20 Supervisor Advice Relationship Specialty Start Date End Date Alessio Gomez MD [address] [place] [address] PCP - General Family Medicine 12/30/20 Supervisor Advice Relationship Specialty Start Date End Date Alessio Gomez MD [address] [place] [address] PCP - General Family Medicine 12/30/20 Supervisor Advice Relationship Specialty Start Date End Date Alessio Gomez MD [address] [place] [address] PCP - General Family Medicine 12/30/20 Supervisor Advice Relationship Specialty Start Date End Date Alessio Gomez MD [address] [place] [address] PCP - General Family Medicine 12/30/20 Supervisor Advice Relationship Specialty Start Date End Date Alessio Gomez MD [address] [place] [address] PCP - General Family Medicine 12/30/20 Supervisor Advice Relationship Specialty Start Date End Date Alessio Gomez MD [address] [place] [address] PCP - General Family Medicine 12/30/20 Supervisor Advice Relationship Specialty Start Date End Date Alessio Gomez MD [address] [place] [address] PCP - General Family Medicine 12/30/20 Supervisor Advice Relationship Specialty Start Date End Date Alessio Gomez MD [address] [place] [address] PCP - General Family Medicine 12/30/20 Supervisor Advice Relationship Specialty Start Date End Date Alessio Gomez MD [address] [place], [place] [address] PCP - General Family Medicine 12/30/20 FOR RECORDS PERTAINING TO PATIENTS WHO ARE OR HAVE BEEN ENROLLED IN A CHEMICAL DEPENDENCY/SUBSTANCEABUSE PROGRAM, SOME INFORMATION MAY BE OMITTED. This clinical summary was aggregated from multiple sources. Caution should be exercised in using it in the provision of clinical care. This summary normalizes information from multiple sources, and as a consequence, information in this document may materially change the coding, format and clinical context of patient data. In addition, data may be omitted in some cases. CLINICAL DECISIONS SHOULD BE BASED ON THE PRIMARY CLINICAL RECORDS. [employer] provides no warranty or guarantee of the accuracy or completeness of information in this document.
== END | disposition home or self-care (01) ==
LOC: CVS 09:47
PROVIDERS: PCP Family Medicine; Referring Provider Internal Medicine Cardiovascular Disease; Visit Provider Internal Medicine Cardiovascular Disease
DX: I48.0 Paroxysmal atrial fibrillation (principal)
CPT/HCPCS: 93306

== ENCOUNTER → 2023-05-26 | Outpatient (CLI) | payer MEDICARE, SELFPAY ==
[2023-05-26 15:46] LABS: Absolute Lymphocyte Count 0.78 X10^3/uL (0.83-4.51); Absolute Neutrophil Count 3.5 X10^3/uL (2.0-7.7); Basophil# 0.04 X10^3/uL; Basophil% 0.8 % (0-1); Eosinophil# 0.21 X10^3/uL; Eosinophils% 4.3 % (0-5); Hematocrit 40.4 % (37-47); Lymphocyte # 0.78 X10^3/ul (0.83-4.51); Lymphocyte % 15.9 % (19-41); Mean Corp Hgb Conc 32.2 g/dL (32-36); Mean Corpuscular Hgb 29.1 pg (27.0-32.0); Mean Corpuscular Volume 90.6 fL (81-99); Mean Platelet Vol. 9.7 fl (6.2-12.0); Monocyte# 0.37 X10^3/uL; Monocyte% 7.5 % (0-10); NRBC Flagged by Analyzer 0 % (0-5); Neutrophil % 71.1 % (47-70); Platelet Count 153 K/mm3 (150-450); RBC Distribution Width CV 12.7 % (11.6-14.6); RBC Distribution Width SD 42.1 fl (35.1-43.9); Red Blood Count 4.46 M/mm3 (4.2-5.4); White Blood Count 4.9 K/mm3 (4.4-11.0)
[2023-05-26 16:20] LABS: ALB/GLOB Ratio 1.2 RATIO (0.9-2.4); AST(SGOT) 19 U/L (15-37); Alanine Aminotransfer ALT/SGPT 23 U/L (13-56); Albumin, Serum 3.7 g/dL (3.2-5.0); Alkaline Phosphatase 68 U/L (45-117); Anion Gap 3 (5-15); BUN 18 mg/dL (7-18); BUN/Creat Ratio 20.3 RATIO (10-20); Calcium,Total 9.4 mg/dL (8.5-10.1); Chloride 107 mmol/L (98-107); Creatinine, Serum 0.89 mg/dL (0.55-1.02); EST Glomerular Filtration Rate 67 mL/min (>60); Est Glom Filt Rate - Afr Amer 81 mL/min (>60); Globulin 3.2 g/dL (2.2-4.2); Glucose 97 mg/dL (74-106); Potassium 4.2 mmol/L (3.5-5.1); Protein, Total 6.9 g/dL (6.4-8.2); Sodium Level 140 mmol/L (136-145)
== END | disposition home or self-care (01) ==
LOC: MTLAB 12:38
PROVIDERS: PCP Family Medicine; Referring Provider Internal Medicine Rheumatology; Visit Provider Internal Medicine Rheumatology
DX: L40.59 Other psoriatic arthropathy (principal); Z79.899 Other long term (current) drug therapy
CPT/HCPCS: 36415; 80053; 85025

== ENCOUNTER → 2023-10-25 | Outpatient (CLI) | payer MEDICARE, OTHER, SELFPAY ==
[2023-10-25 15:23] LABS: Absolute Lymphocyte Count 0.95 X10^3/uL (0.83-4.51); Absolute Neutrophil Count 4.3 X10^3/uL (2.0-7.7); Basophil# 0.03 X10^3/uL; Basophil% 0.5 % (0-1); Eosinophil# 0.14 X10^3/uL; Eosinophils% 2.4 % (0-5); Hemoglobin 13.3 g/dL (12.0-15.0); Lymphocyte # 0.95 X10^3/ul (0.83-4.51); Lymphocyte % 16.5 % (19-41); Mean Corp Hgb Conc 31.7 g/dL (32-36); Mean Corpuscular Hgb 29.2 pg (27.0-32.0); Mean Corpuscular Volume 92.3 fL (81-99); Mean Platelet Vol. 9.5 fl (6.2-12.0); Monocyte# 0.34 X10^3/uL; Monocyte% 5.9 % (0-10); NRBC Flagged by Analyzer 0 % (0-5); Neutrophil # 4.27 X10^3/uL (2.7-7.7); Neutrophil % 74.4 % (47-70); Platelet Count 197 K/mm3 (150-450); RBC Distribution Width CV 14.1 % (11.6-14.6); RBC Distribution Width SD 47.2 fl (35.1-43.9); Red Blood Count 4.55 M/mm3 (4.2-5.4); White Blood Count 5.8 K/mm3 (4.4-11.0)
[2023-10-25 15:40] LABS: ALB/GLOB Ratio 1.1 RATIO (0.9-2.4); AST(SGOT) 26 U/L (15-37); Alanine Aminotransfer ALT/SGPT 22 U/L (13-56); Albumin, Serum 3.7 g/dL (3.2-5.0); Alkaline Phosphatase 88 U/L (45-117); Anion Gap 5 (5-15); BUN 15 mg/dL (7-18); Calcium,Total 9.7 mg/dL (8.5-10.1); Chloride 104 mmol/L (98-107); Creatinine, Serum 0.94 mg/dL (0.55-1.02); EST Glomerular Filtration Rate 63 mL/min (>60); Est Glom Filt Rate - Afr Amer 76 mL/min (>60); Globulin 3.5 g/dL (2.2-4.2); Glucose 99 mg/dL (74-106); Potassium 4.3 mmol/L (3.5-5.1); Protein, Total 7.2 g/dL (6.4-8.2); Sodium Level 138 mmol/L (136-145)
== END | disposition home or self-care (01) ==
LOC: MTLAB 12:57
PROVIDERS: PCP Family Medicine; Referring Provider Internal Medicine Rheumatology; Visit Provider Internal Medicine Rheumatology
DX: L40.59 Other psoriatic arthropathy (principal); Z79.899 Other long term (current) drug therapy
CPT/HCPCS: 36415; 80053; 85025

== ENCOUNTER → 2024-01-15 | Outpatient (CLI) | payer MEDICARE, OTHER, SELFPAY ==
[2024-01-15 10:16] LABS: Absolute Lymphocyte Count 0.85 X10^3/uL (0.83-4.51); Basophil# 0.04 X10^3/uL; Basophil% 0.9 % (0-1); Eosinophil# 0.13 X10^3/uL; Hematocrit 39.2 % (37-47); Hemoglobin 12.6 g/dL (12.0-15.0); Lymphocyte # 0.85 X10^3/ul (0.83-4.51); Lymphocyte % 19.6 % (19-41); Mean Corp Hgb Conc 32.1 g/dL (32-36); Mean Corpuscular Hgb 29.5 pg (27.0-32.0); Mean Corpuscular Volume 91.8 fL (81-99); Mean Platelet Vol. 9.4 fl (6.2-12.0); Monocyte# 0.35 X10^3/uL; Monocyte% 8.1 % (0-10); NRBC Flagged by Analyzer 0 % (0-5); Neutrophil # 2.95 X10^3/uL (2.7-7.7); Neutrophil % 68.2 % (47-70); Platelet Count 162 K/mm3 (150-450); RBC Distribution Width CV 14.1 % (11.6-14.6); RBC Distribution Width SD 46.1 fl (35.1-43.9); Red Blood Count 4.27 M/mm3 (4.2-5.4); White Blood Count 4.3 K/mm3 (4.4-11.0)
[2024-01-15 11:10] LABS: ALB/GLOB Ratio 1.2 RATIO (0.9-2.4); AST(SGOT) 20 U/L (15-37); Alanine Aminotransfer ALT/SGPT 22 U/L (13-56); Albumin, Serum 3.7 g/dL (3.2-5.0); Alkaline Phosphatase 81 U/L (45-117); Anion Gap 6 (5-15); BUN 14 mg/dL (7-18); BUN/Creat Ratio 17.3 RATIO (10-20); Chloride 108 mmol/L (98-107); Creatinine, Serum 0.81 mg/dL (0.55-1.02); EST Glomerular Filtration Rate 75 mL/min (>60); Est Glom Filt Rate - Afr Amer 90 mL/min (>60); Globulin 3.2 g/dL (2.2-4.2); Glucose 109 mg/dL (74-106); Potassium 4.3 mmol/L (3.5-5.1); Protein, Total 6.9 g/dL (6.4-8.2); Sodium Level 140 mmol/L (136-145)
== END | disposition home or self-care (01) ==
PROVIDERS: PCP Family Medicine; Referring Provider Internal Medicine Rheumatology; Visit Provider Internal Medicine Rheumatology
DX: L40.59 Other psoriatic arthropathy (principal); M15.9 Polyosteoarthritis, unspecified; Z79.899 Other long term (current) drug therapy
CPT/HCPCS: 36415; 80053; 85025

== ENCOUNTER → 2024-04-18 | Outpatient (CLI) | payer MEDICARE, OTHER, SELFPAY ==
[2024-04-18 15:05] LABS: Absolute Lymphocyte Count 1.12 X10^3/uL (0.83-4.51); Absolute Neutrophil Count 3.1 X10^3/uL (2.0-7.7); Basophil# 0.04 X10^3/uL; Basophil% 0.9 % (0-1); Eosinophil# 0.12 X10^3/uL; Eosinophils% 2.6 % (0-5); Hematocrit 40.7 % (37-47); Lymphocyte # 1.12 X10^3/ul (0.83-4.51); Lymphocyte % 23.8 % (19-41); Mean Corp Hgb Conc 31.9 g/dL (32-36); Mean Corpuscular Volume 90.8 fL (81-99); Monocyte# 0.36 X10^3/uL; Monocyte% 7.7 % (0-10); NRBC Flagged by Analyzer 0 % (0-5); Neutrophil # 3.05 X10^3/uL (2.7-7.7); Neutrophil % 64.8 % (47-70); Platelet Count 190 K/mm3 (150-450); RBC Distribution Width CV 13.8 % (11.6-14.6); RBC Distribution Width SD 45.9 fl (35.1-43.9); Red Blood Count 4.48 M/mm3 (4.2-5.4); White Blood Count 4.7 K/mm3 (4.4-11.0)
[2024-04-18 15:56] LABS: ALB/GLOB Ratio 1.1 RATIO (0.9-2.4); AST(SGOT) 31 U/L (15-37); Alanine Aminotransfer ALT/SGPT 26 U/L (13-56); Albumin, Serum 3.9 g/dL (3.2-5.0); Alkaline Phosphatase 83 U/L (45-117); Anion Gap 5 (5-15); BUN 16 mg/dL (7-18); BUN/Creat Ratio 16.1 RATIO (10-20); Chloride 105 mmol/L (98-107); Creatinine, Serum 0.99 mg/dL (0.55-1.02); EST Glomerular Filtration Rate 59 mL/min (>60); Est Glom Filt Rate - Afr Amer 71 mL/min (>60); Globulin 3.5 g/dL (2.2-4.2); Glucose 84 mg/dL (74-106); Potassium 4.3 mmol/L (3.5-5.1); Protein, Total 7.4 g/dL (6.4-8.2); Sodium Level 138 mmol/L (136-145)
== END | disposition home or self-care (01) ==
PROVIDERS: PCP Family Medicine; Referring Provider Internal Medicine Rheumatology; Visit Provider Internal Medicine Rheumatology
DX: L40.59 Other psoriatic arthropathy (principal); Z79.899 Other long term (current) drug therapy
CPT/HCPCS: 36415; 80053; 85025

== ENCOUNTER → 2024-05-03 | Outpatient (CLI) | payer MEDICARE, OTHER, SELFPAY | END | disposition home or self-care (01) | LOC: LABSPEC 12:08 | PROVIDERS: PCP Family Medicine; Referring Provider Physician Assistant Surgical; Visit Provider Physician Assistant Surgical | DX: R82.90 Unspecified abnormal findings in urine (principal) | CPT/HCPCS: 87086; 87088 ==

== ENCOUNTER → 2024-06-24 | Outpatient (CLI) | payer MEDICARE, OTHER, SELFPAY ==
[2024-06-24 15:32] LABS: Absolute Lymphocyte Count 0.87 X10^3/uL (0.83-4.51); Absolute Neutrophil Count 3.7 X10^3/uL (2.0-7.7); Basophil# 0.04 X10^3/uL; Basophil% 0.8 % (0-1); Eosinophil# 0.16 X10^3/uL; Eosinophils% 3.1 % (0-5); Hemoglobin 12.6 g/dL (12.0-15.0); Lymphocyte # 0.87 X10^3/ul (0.83-4.51); Lymphocyte % 16.6 % (19-41); Mean Corp Hgb Conc 33.2 g/dL (32-36); Mean Corpuscular Hgb 29.8 pg (27.0-32.0); Mean Corpuscular Volume 89.8 fL (81-99); Mean Platelet Vol. 9.7 fl (6.2-12.0); Monocyte# 0.44 X10^3/uL; Monocyte% 8.4 % (0-10); NRBC Flagged by Analyzer 0 % (0-5); Neutrophil % 70.7 % (47-70); Platelet Count 169 K/mm3 (150-450); RBC Distribution Width SD 44.9 fl (35.1-43.9); Red Blood Count 4.23 M/mm3 (4.2-5.4); White Blood Count 5.2 K/mm3 (4.4-11.0)
[2024-06-24 15:38] LABS: ALB/GLOB Ratio 1.7 RATIO (0.9-2.4); AST(SGOT) 26 U/L (<=31); Alanine Aminotransfer ALT/SGPT 16 U/L (<=34); Albumin, Serum 4.1 g/dL (3.4-4.8); Alkaline Phosphatase 81 U/L (35-104); Anion Gap 10 (5-15); BUN 16 mg/dL (4-19); BUN/Creat Ratio 18.8 RATIO (10-20); Calcium,Total 9.6 mg/dL (7.6-11.0); Carbon Dioxide 24.6 mmol/L (21.0-32.0); Chloride 104 mmol/L (98-108); Creatinine, Serum 0.83 mg/dL (0.70-1.20); EST Glomerular Filtration Rate 76 (>60); Globulin 2.5 g/dL (2.2-4.2); Glucose 85 mg/dL (70-99); Potassium 4.2 mmol/L (3.3-5.1); Protein, Total 6.6 g/dL (5.9-8.4); Sodium Level 139 mmol/L (133-145); Total Bilirubin 0.41 mg/dL (0.00-1.30)
== END | disposition home or self-care (01) ==
LOC: LAB 11:08
PROVIDERS: PCP Family Medicine; Referring Provider Internal Medicine Rheumatology; Visit Provider Internal Medicine Rheumatology
DX: L40.59 Other psoriatic arthropathy (principal); Z79.899 Other long term (current) drug therapy
CPT/HCPCS: 36415; 80053; 85025

== ENCOUNTER → 2024-07-09 | Outpatient (CLI) | payer MEDICARE, OTHER, SELFPAY ==
--- NOTE | 2024-07-09 15:52 | RAD_ITS ---
PROCEDURE: CERV SPINE 4 OR 5 VIEWS 07/09/2024 REASON FOR EXAM: PAIN TECHNIQUE: 5 views of the cervical spine. AP, lateral, bilateral oblique and open-mouth odontoid COMPARISON: None available FINDINGS: The cervical spine is visualized on the lateral view from the skull base to the top of T1. No fracture or malalignment. No prevertebral soft tissue swelling. Visualized apices appear clear. Moderate asymmetric appearing joint space narrowing on the left C1-2 lateral mass compared to the right on the open-mouth odontoid view. Asymmetric [id number]-right hypertrophic facet degenerative changes C2 through C4. Moderate disc space narrowing C5-6 and C6-7 with anterior corner osteophyte formation moderate in size. Mild osseous narrowing from uncovertebral hypertrophic change bilateral C6-7. Mild disc space narrowing C7-T1. RAD/Cerv Spine 4 or 5 Views IMPRESSION: Multilevel spondylosis/discogenic change as above. Reading Location: [id number]
== END | disposition home or self-care (01) ==
LOC: MTRAD 15:51
PROVIDERS: PCP Family Medicine; Referring Provider Internal Medicine Rheumatology; Visit Provider Internal Medicine Rheumatology
DX: M54.2 Cervicalgia (principal); L40.59 Other psoriatic arthropathy; M21.40 Flat foot [pes planus] (acquired), unspecified foot; M15.9 Polyosteoarthritis, unspecified; Z79.899 Other long term (current) drug therapy
CPT/HCPCS: 72050

== ENCOUNTER → 2024-09-24 | Outpatient (CLI) | payer MEDICARE, OTHER, SELFPAY ==
[2024-09-24 15:55] LABS: Hematocrit 41.3 % (37-47); Hemoglobin 13.6 g/dL (12.0-15.0); Immature Granulocytes Count 0.020 X10^3/uL (0.0-0.0); Mean Corp Hgb Conc 32.9 g/dL (32-36); Mean Corpuscular Volume 90.4 fL (81-99); Mean Platelet Vol. 9.7 fl (6.2-12.0); NRBC Flagged by Analyzer 0 % (0-5); Platelet Count 173 K/mm3 (150-450); RBC Distribution Width CV 14.2 % (11.6-14.6); RBC Distribution Width SD 45.7 fl (35.1-43.9); Red Blood Count 4.57 M/mm3 (4.2-5.4); White Blood Count 4.6 K/mm3 (4.4-11.0)
[2024-09-24 16:48] LABS: AST(SGOT) 26 U/L (<=31); Alanine Aminotransfer ALT/SGPT 16 U/L (<=34); Albumin, Serum 4.3 g/dL (3.4-4.8); Alkaline Phosphatase 87 U/L (35-104); Anion Gap 11 (5-15); BUN 13 mg/dL (4-19); BUN/Creat Ratio 14.0 RATIO (10-20); Calcium,Total 10.2 mg/dL (7.6-11.0); Carbon Dioxide 25.6 mmol/L (21.0-32.0); Chloride 104 mmol/L (98-108); Globulin 2.6 g/dL (2.2-4.2); Glucose 115 mg/dL (70-99); Potassium 4.2 mmol/L (3.3-5.1)
== END | disposition home or self-care (01) ==
LOC: MTLAB 13:31
PROVIDERS: PCP Family Medicine; Referring Provider Internal Medicine Rheumatology; Visit Provider Internal Medicine Rheumatology
DX: L40.59 Other psoriatic arthropathy (principal); K76.0 Fatty (change of) liver, not elsewhere classified; Z79.899 Other long term (current) drug therapy
CPT/HCPCS: 36415; 80053; 85025

== ENCOUNTER → 2024-12-25 | Outpatient (CLI) | payer MEDICARE, OTHER, SELFPAY ==
[2024-12-25 16:10] LABS: AST(SGOT) 25 U/L (<=31); Alanine Aminotransfer ALT/SGPT 16 U/L (<=34); Albumin, Serum 4.2 g/dL (3.4-4.8); Alkaline Phosphatase 84 U/L (35-104); Anion Gap 11 (5-15); BUN 22 mg/dL (4-19); BUN/Creat Ratio 29.5 RATIO (10-20); Calcium,Total 9.7 mg/dL (7.6-11.0); Carbon Dioxide 24.0 mmol/L (21.0-32.0); Chloride 104 mmol/L (98-108); Globulin 2.5 g/dL (2.2-4.2); Glucose 75 mg/dL (70-99); Potassium 4.5 mmol/L (3.3-5.1)
[2024-12-25 16:26] LABS: Hematocrit 40.1 % (37-47); Hemoglobin 12.9 g/dL (12.0-15.0); Immature Granulocytes Count 0.040 X10^3/uL (0.0-0.0); Mean Corp Hgb Conc 32.2 g/dL (32-36); Mean Corpuscular Volume 90.9 fL (81-99); Mean Platelet Vol. 10.0 fl (6.2-12.0); NRBC Flagged by Analyzer 0 % (0-5); Platelet Count 243 K/mm3 (150-450); RBC Distribution Width CV 14.9 % (11.6-14.6); RBC Distribution Width SD 48.8 fl (35.1-43.9); Red Blood Count 4.41 M/mm3 (4.2-5.4); White Blood Count 7.8 K/mm3 (4.4-11.0)
== END | disposition home or self-care (01) ==
LOC: MTLAB 12:34
PROVIDERS: PCP Pediatrics; Referring Provider Internal Medicine Rheumatology; Visit Provider Internal Medicine Rheumatology
DX: L40.59 Other psoriatic arthropathy (principal); Z79.899 Other long term (current) drug therapy
CPT/HCPCS: 36415; 80053; 85025

== ENCOUNTER → 2025-02-26 | Outpatient (CLI) | payer MEDICARE, OTHER, SELFPAY ==
[2025-02-26 12:38] LABS: Hematocrit 38.5 % (37-47); Hemoglobin 12.7 g/dL (12.0-15.0); Immature Granulocytes Count 0.010 X10^3/uL (0.0-0.0); Mean Corp Hgb Conc 33.0 g/dL (32-36); Mean Corpuscular Volume 89.3 fL (81-99); Mean Platelet Vol. 9.2 fl (6.2-12.0); NRBC Flagged by Analyzer 0 % (0-5); Platelet Count 162 K/mm3 (150-450); RBC Distribution Width CV 14.1 % (11.6-14.6); RBC Distribution Width SD 45.5 fl (35.1-43.9); Red Blood Count 4.31 M/mm3 (4.2-5.4); White Blood Count 4.1 K/mm3 (4.4-11.0)
[2025-02-26 13:00] LABS: AST(SGOT) 27 U/L (<=31); Alanine Aminotransfer ALT/SGPT 17 U/L (<=34); Albumin, Serum 4.3 g/dL (3.4-4.8); Alkaline Phosphatase 88 U/L (35-104); Anion Gap 9 (5-15); BUN 15 mg/dL (4-19); BUN/Creat Ratio 17.1 RATIO (10-20); Calcium,Total 9.8 mg/dL (7.6-11.0); Carbon Dioxide 27.9 mmol/L (21.0-32.0); Chloride 103 mmol/L (98-108); Globulin 2.5 g/dL (2.2-4.2); Glucose 83 mg/dL (70-99); Potassium 4.4 mmol/L (3.3-5.1)
== END | disposition home or self-care (01) ==
LOC: MTLAB 11:03
PROVIDERS: PCP Pediatrics; Referring Provider Internal Medicine Rheumatology; Visit Provider Internal Medicine Rheumatology
DX: L40.59 Other psoriatic arthropathy (principal); Z79.899 Other long term (current) drug therapy
CPT/HCPCS: 36415; 80053; 85025